=== PATIENT | male | born 1935 | race Caucasian/White ===

== ENCOUNTER → 2016-07-26 | Outpatient (CLI) | payer MEDICARE, BC ==
[2016-07-26 09:19] LABS: Basophils # (A) 0.1 k/uL (0-0.2); Basophils % (A) 1 %; CH 30.3; CHCM 33.8; Eosinophils # (A) 0.3 k/uL (0-0.7); Eosinophils % (A) 3 %; HCT 53.2 % (39.0-53.0); HDW 2.76; HGB 17.7 gm/dL (13.0-17.5); Luc # (Auto) 0.27; Luc % (Auto) 3; Lymphocytes # (A) 1.7 k/uL (1.0-4.8); Lymphocytes % (A) 19 %; MCH 29.9 pg (25.0-35.0); MCHC 33.2 g/dL (31.0-37.0); MCV 89.9 fL (80.0-100.0); Monocytes # (A) 0.6 k/uL (0-1.0); Monocytes % (A) 7 %; Neutrophils # (A) 6.3 k/uL (1.3-7.7); Neutrophils % (A) 68 %; RBC 5.92 m/uL (4.30-5.90); RDW 13.2 % (11.5-15.5); WBC 9.2 k/uL (3.8-10.6); WBC (Perox) 9.39
[2016-07-26 09:34] LABS: INR 2.1 (<1.1); Prothrombin Time 20.6 sec (9.0-12.0)
[2016-07-26 11:06] LABS: Hemoglobin A1C 5.4 % (4.2-6.1)
[2016-07-26 12:25] LABS: ALT 35 U/L (21-72); AST 34 U/L (17-59); Alkaline Phosphatase 115 U/L (38-126); Anion Gap 9 mmol/L; Blood Urea Nitrogen 25 mg/dL (9-20); Carbon Dioxide 33 mmol/L (22-30); Chloride 103 mmol/L (98-107); Cholesterol 175 mg/dL (<200); Glucose 111 mg/dL (74-99); HDL Cholesterol 34 mg/dL (40-60); Non-African American GFR(MDRD) 58 (>60 ml/min/1.73 sqM); Sodium 145 mmol/L (137-145); Total Bilirubin 0.6 mg/dL (0.2-1.3); Total Protein 7.2 g/dL (6.3-8.2); Triglycerides 164 mg/dL (<150); Uric Acid 6.6 mg/dL (3.5-8.5)
[2016-07-26 13:27] LABS: Vitamin B12 318 pg/mL
[2016-07-26 13:40] LABS: Potassium 5.7 mmol/L (3.5-5.1)
== END | disposition home or self-care (01) ==
LOC: LABWHC1 08:26
PROVIDERS: ATTEND Family Medicine
DX: E78.5 Hyperlipidemia, unspecified (principal); K14.8 Other diseases of tongue; I10 Essential (primary) hypertension; I48.91 Unspecified atrial fibrillation
CPT/HCPCS: 36415; 80053; 80061; 82607; 82746; 83036; 84443; 84550; 85025; 85610

== ENCOUNTER → 2016-08-01 | Outpatient (CLI) | payer MEDICARE, BC ==
--- NOTE | 2016-08-01 08:23 | CT ---
EXAMINATION TYPE: CT brain wo con DATE OF EXAM: 08/01/2016 8:17 AM COMPARISON: NONE HISTORY: Numbness of tongue CT DLP: 978.[address] of the brain was performed. The ventricles, basal cisterns and sulci overlying the cerebral convexities demonstrate mild enlargem ent. There is no evidence for intracranial hemorrhage or sulcal effacement. There is decreased attenuation about the periventricular white matter and deep white matter of both c erebral hemispheres, compatible with chronic small vessel ischemia. Differential diagnosis does inclu de demyelination. No mass effects are seen.No midline shift. Osseous calvarium is intact. If symptoms persist consider MRI. IMPRESSION: 1. Age related atrophic and chronic small vessel ischemic change without acute intracranial process s een at this time.
== END | disposition home or self-care (01) ==
LOC: RADCTMAIN 07:59
PROVIDERS: ATTEND Family Medicine
DX: I67.82 Cerebral ischemia (principal); G31.9 Degenerative disease of nervous system, unspecified; K14.8 Other diseases of tongue
CPT/HCPCS: 70450

== ENCOUNTER → 2016-08-08 | Outpatient (CLI) | payer MEDICARE, BC ==
[2016-08-08 10:30] LABS: Anion Gap 11 mmol/L; Blood Urea Nitrogen 18 mg/dL (9-20); Calcium 9.7 mg/dL (8.4-10.2); Carbon Dioxide 30 mmol/L (22-30); Chloride 100 mmol/L (98-107); Glucose 114 mg/dL (74-99); Non-African American GFR(MDRD) 55 (>60 ml/min/1.73 sqM); Potassium 5.4 mmol/L (3.5-5.1); Sodium 141 mmol/L (137-145)
== END | disposition home or self-care (01) ==
LOC: LABWHC1 09:31
PROVIDERS: ATTEND Nurse Practitioner Family
DX: E87.5 Hyperkalemia (principal)
CPT/HCPCS: 36415; 80048

== ENCOUNTER → 2016-08-13 | Outpatient (CLI) | payer MEDICARE, BC ==
[2016-08-13 13:14] LABS: Anion Gap 12 mmol/L; Blood Urea Nitrogen 28 mg/dL (9-20); Carbon Dioxide 32 mmol/L (22-30); Chloride 99 mmol/L (98-107); Non-African American GFR(MDRD) 57 (>60 ml/min/1.73 sqM); Potassium 5.8 mmol/L (3.5-5.1); Sodium 143 mmol/L (137-145)
== END | disposition home or self-care (01) ==
LOC: LABWHC1 11:38
PROVIDERS: ATTEND Otolaryngology
DX: R20.0 Anesthesia of skin (principal); H92.02 Otalgia, left ear; R13.10 Dysphagia, unspecified; R07.0 Pain in throat; R68.89 Other general symptoms and signs
CPT/HCPCS: 36415; 80051; 82565; 84520; 86618

== ENCOUNTER → 2016-08-19 | Outpatient (CLI) | payer MEDICARE, BC | END | disposition home or self-care (01) | LOC: LABMAIN 16:38 | PROVIDERS: ATTEND Nurse Practitioner Family | DX: Z53.9 Procedure and treatment not carried out, unspecified reason (principal) ==

== ENCOUNTER → 2016-08-19 | Outpatient (CLI) | payer MEDICARE, BC ==
[2016-08-19 17:38] LABS: Ionized Calcium 4.3 mg/dL (4.5-5.3)
[2016-08-19 18:36] LABS: Vitamin B12 <159 pg/mL
[2016-08-19 18:39] LABS: Blood Urea Nitrogen 30 mg/dL (9-20); Non-African American GFR(MDRD) >60 (>60 ml/min/1.73 sqM)
--- NOTE | 2016-08-19 19:22 | CT ---
EXAMINATION TYPE: CT soft tissue neck w con DATE OF EXAM: 08/19/2016 7:13 PM COMPARISON: NONE HISTORY: Pt states of left side of tongue going numb and left side ear ache. CT DLP: 1328.5 mGycm Automated exposure control for dose reduction was used. CONTRAST: CT scan of the neck is performed following with IV Contrast, patient injected with 100 mL of Omnipaqu e 300. Axial images are obtained, coronal and sagittal reformatted images are reviewed. FINDINGS: Thoracic aorta is atheromatous. There is normal branching pattern of the great vessels on the aortic arch. Thyroid gland is symmetric. Subglottic trachea appears normal. Epiglottis is normal. There is n o evidence of a pharyngeal mass. There is normal contrast opacification of the carotid arteries and j ugular veins. There is mild atherosclerotic vascular calcification. There are spondylotic changes in the cervical spine with disc space narrowing and extensive anterior spurring at C5-6 C6-7 C7-T1. Ther e is mild mucosal thickening in the sphenoid sinus. The skull base is intact. There is mucosal thicke yolanda in the maxillary sinuses. There is normal contrast opacification of the vertebral arteries. IMPRESSION: Atherosclerotic vascular disease. Moderate spondylosis in the lower cervical spine. I do not see a cause for the patient's symptoms. Sphenoid and maxillary sinusitis.
--- NOTE | 2016-08-19 19:24 | CT ---
EXAMINATION TYPE: CT brain w con DATE OF EXAM: 08/19/2016 7:13 PM COMPARISON: 08/01/2016 HISTORY: Pt states of left side of tongue going numb and left side ear ache. CT DLP: 1328.5 mGycm Automated exposure control for dose reduction was used. CONTRAST: CT scan of the head is performed with IV Contrast, patient injected with 100 mL of Omnipaque 300. FINDINGS: Ventricles and sulci are normal for age. There is no mass effect nor midline shift. There is no sign of intracranial hemorrhage. There is mild mucosal thickening in the ethmoid sphenoid and maxillary si nuses. Calvarium is intact. I see no pathologic enhancement. IMPRESSION: Mild sinusitis. Otherwise negative unenhanced head CT scan. Brain is unchanged compared to old exam.
== END | disposition home or self-care (01) ==
LOC: RADCTMAIN 16:25
PROVIDERS: ATTEND Otolaryngology
DX: J32.9 Chronic sinusitis, unspecified (principal); M47.812 Spondylosis without myelopathy or radiculopathy, cervical region
CPT/HCPCS: 80048; 82330; 82607; 70491; 70460; 36415; Q9967

== ENCOUNTER → 2016-08-23 | Outpatient (CLI) | payer MEDICARE, BC ==
[2016-08-23 10:39] LABS: Anion Gap 11 mmol/L; Blood Urea Nitrogen 26 mg/dL (9-20); Calcium 9.9 mg/dL (8.4-10.2); Carbon Dioxide 31 mmol/L (22-30); Chloride 101 mmol/L (98-107); Glucose 113 mg/dL (74-99); Non-African American GFR(MDRD) 55 (>60 ml/min/1.73 sqM); Potassium 5.2 mmol/L (3.5-5.1); Sodium 143 mmol/L (137-145)
== END | disposition home or self-care (01) ==
LOC: LABWHC1 09:59
PROVIDERS: ATTEND Nurse Practitioner Family
DX: E87.6 Hypokalemia (principal)
CPT/HCPCS: 36415; 80048

== ENCOUNTER → 2016-09-16 | Outpatient (CLI) | payer MEDICARE, BC ==
[2016-09-16 10:15] LABS: Basophils # (A) 0.1 k/uL (0-0.2); Basophils % (A) 1 %; CHCM 33.1; Eosinophils # (A) 0.3 k/uL (0-0.7); Eosinophils % (A) 3 %; HCT 52.7 % (39.0-53.0); HDW 2.69; HGB 16.9 gm/dL (13.0-17.5); Luc # (Auto) 0.26; Luc % (Auto) 3; Lymphocytes # (A) 1.7 k/uL (1.0-4.8); Lymphocytes % (A) 21 %; MCH 29.2 pg (25.0-35.0); MCHC 32.1 g/dL (31.0-37.0); MCV 90.9 fL (80.0-100.0); Mean Platelet Volume 6.9; Monocytes # (A) 0.4 k/uL (0-1.0); Monocytes % (A) 6 %; Neutrophils # (A) 5.1 k/uL (1.3-7.7); Neutrophils % (A) 66 %; RDW 13.2 % (11.5-15.5); WBC 7.8 k/uL (3.8-10.6); WBC (Perox) 8.08
[2016-09-16 10:17] LABS: Appearance,Urine Clear (Clear); Bilirubin,Urine Negative (Negative); Glucose,Urine (UA) Negative (Negative); Ketones,Urine Negative (Negative); Leukocyte Esterase,Urine Negative (Negative); Nitrite,Urine Negative (Negative); Particle Count 616; Protein,Urine Negative (Negative); RBC,Urine 7 /hpf (0-5); UA Billing (MACRO vs. MICRO) MICRO; Urobilinogen,Urine <2.0 mg/dL (<2.0); WBC,Urine <1 /hpf (0-5)
[2016-09-16 11:02] LABS: ALT 40 U/L (21-72); AST 35 U/L (17-59); Alkaline Phosphatase 118 U/L (38-126); Anion Gap 10 mmol/L; Blood Urea Nitrogen 20 mg/dL (9-20); Calcium 9.4 mg/dL (8.4-10.2); Carbon Dioxide 29 mmol/L (22-30); Chloride 103 mmol/L (98-107); Glucose 99 mg/dL (74-99); Iron 110 ug/dL (49-181); Magnesium 1.9 mg/dL (1.6-2.3); Non-African American GFR(MDRD) 58 (>60 ml/min/1.73 sqM); Phosphorous 2.9 mg/dL (2.5-4.5); Potassium 4.9 mmol/L (3.5-5.1); Sodium 142 mmol/L (137-145); Total Bilirubin 0.7 mg/dL (0.2-1.3); Total Protein 7.1 g/dL (6.3-8.2); Uric Acid 6.3 mg/dL (3.5-8.5)
[2016-09-16 11:12] LABS: Creatinine,Urine Random 94.5 mg/dL
[2016-09-16 11:13] LABS: % Iron Saturation 31.4 % (20-50); Total Iron Binding Capacity 350 ug/dL (261-462)
== END ==
LOC: LABWHC1 09:43
PROVIDERS: ATTEND Nurse Practitioner Family
DX: N18.3 Chronic kidney disease, stage 3 (moderate) (principal); N39.0 Urinary tract infection, site not specified; M10.9 Gout, unspecified; D50.9 Iron deficiency anemia, unspecified; E55.9 Vitamin D deficiency, unspecified
CPT/HCPCS: 36415; 80053; 81001; 82306; 82570; 82728; 83540; 83550; 83735; 83970; 84100; 84156; 84550; 85025

== ENCOUNTER → 2016-10-11 | Outpatient (CLI) | payer MEDICARE, BC ==
--- NOTE | 2016-10-11 09:07 | US ---
EXAMINATION TYPE: US kidneys/renal and bladder DATE OF EXAM: 10/11/2016 8:38 AM COMPARISON: 11/30/2014 CLINICAL HISTORY: CKD Stage III N18.3. Chronic renal disease EXAM MEASUREMENTS: Right Kidney: 10.4 x 5.3 x 6.0 cm Left Kidney: 9.8 x 5.6 x 5.8 cm Right Kidney: echogenic foci with shadowing seen in lower pole, indicative of stones Left Kidney: dromedary hump Bladder: Anechoic with normal wall thickness Normal Post Void Residual: right No hydronephrosis.. complex cystic structure superior to bladder measuring 5.1 x 4.2 cm. Persistent after bladder is voi ded. Patient has stated that doctor said he has hernia bilaterally. IMPRESSION: 1. Findings are suggestive of nonobstructing right renal stones. 2. Complex cystic mass superior to the bladder. This may correspond to the previous CT abnormality 20 15 represent a balloon for cleanout implant. Correlate clinically.
== END | disposition home or self-care (01) ==
LOC: RADUSWWP 07:51
PROVIDERS: ATTEND Internal Medicine Nephrology
DX: N32.89 Other specified disorders of bladder (principal); N18.3 Chronic kidney disease, stage 3 (moderate)
CPT/HCPCS: 76770

== ENCOUNTER → 2016-10-30 | Outpatient (CLI) | payer MEDICARE, BC ==
[2016-10-30 11:17] LABS: Basophils # (A) 0.1 k/uL (0-0.2); Basophils % (A) 1 %; CH 30.6; Eosinophils # (A) 0.1 k/uL (0-0.7); Eosinophils % (A) 1 %; HCT 49.4 % (39.0-53.0); HDW 2.61; HGB 16.4 gm/dL (13.0-17.5); Luc # (Auto) 0.22; Luc % (Auto) 3; Lymphocytes % (A) 12 %; MCH 29.9 pg (25.0-35.0); MCHC 33.2 g/dL (31.0-37.0); MCV 90.2 fL (80.0-100.0); Mean Platelet Volume 6.8; Monocytes # (A) 0.6 k/uL (0-1.0); Monocytes % (A) 8 %; Neutrophils # (A) 6.3 k/uL (1.3-7.7); Neutrophils % (A) 77 %; RBC 5.48 m/uL (4.30-5.90); RDW 13.8 % (11.5-15.5); WBC 8.2 k/uL (3.8-10.6); WBC (Perox) 8.35
[2016-10-30 14:03] LABS: ALT 31 U/L (21-72); AST 29 U/L (17-59); Alkaline Phosphatase 84 U/L (38-126); Anion Gap 9 mmol/L; Blood Urea Nitrogen 25 mg/dL (9-20); Calcium 9.1 mg/dL (8.4-10.2); Carbon Dioxide 30 mmol/L (22-30); Chloride 99 mmol/L (98-107); Glucose 98 mg/dL (74-99); Non-African American GFR(MDRD) 53 (>60 ml/min/1.73 sqM); Potassium 4.8 mmol/L (3.5-5.1); Sodium 138 mmol/L (137-145); Total Bilirubin 0.8 mg/dL (0.2-1.3); Total Protein 6.7 g/dL (6.3-8.2)
[2016-10-30 14:57] LABS: Vitamin B12 600 pg/mL
== END | disposition home or self-care (01) ==
LOC: LABWHC1 10:55
PROVIDERS: ATTEND Family Medicine
DX: K14.8 Other diseases of tongue (principal)
CPT/HCPCS: 36415; 80053; 82306; 82607; 82746; 84443; 85025

== ENCOUNTER → 2017-02-27 | Outpatient (CLI) | payer MEDICARE, BC ==
[2017-02-27 10:47] LABS: Creatine Kinase 102 U/L (55-170)
[2017-02-27 10:50] LABS: Rheumatoid Factor, Qnt <9 IU/mL (<12)
[2017-02-27 11:21] LABS: Vitamin B12 560 pg/mL
[2017-02-27 12:21] LABS: Hemoglobin A1C 5.8 % (4.2-6.1)
[2017-02-27 16:58] LABS: Treponemal Ab Non-Reactive (Non-Reactive)
[2017-02-27 20:01] LABS: ANA w/Reflex to Titer POSITIVE (NEGATIVE)
[2017-02-28 11:23] LABS: Lyme IgG/IgM Interp NEGATIVE (NEGATIVE)
== END | disposition home or self-care (01) ==
LOC: LABWHC1 08:33
PROVIDERS: ATTEND Psychiatry & Neurology Neurology
DX: E03.9 Hypothyroidism, unspecified (principal); E11.9 Type 2 diabetes mellitus without complications; G62.9 Polyneuropathy, unspecified
CPT/HCPCS: 36415; 82550; 82607; 83036; 84165; 84439; 84443; 85652; 86038; 86039; 86431; 86618; 86780

== ENCOUNTER → 2017-09-16 | Outpatient (CLI) | payer MEDICARE, BC ==
[2017-09-16 11:04] LABS: Basophils # (A) 0.1 k/uL (0-0.2); Basophils % (A) 1 %; Eosinophils # (A) 0.3 k/uL (0-0.7); Eosinophils % (A) 3 %; HCT 48.2 % (39.0-53.0); HGB 16.2 gm/dL (13.0-17.5); Lymphocytes # (A) 1.6 k/uL (1.0-4.8); Lymphocytes % (A) 18 %; MCH 28.5 pg (25.0-35.0); MCHC 33.5 g/dL (31.0-37.0); Mean Platelet Volume 7.1; Monocytes # (A) 0.6 k/uL (0-1.0); Monocytes % (A) 7 %; Neutrophils # (A) 5.7 k/uL (1.3-7.7); Neutrophils % (A) 68 %; Platelet Count 167 k/uL (150-450); RBC 5.67 m/uL (4.30-5.90); RDW 13.9 % (11.5-15.5); WBC 8.5 k/uL (3.8-10.6)
[2017-09-16 11:19] LABS: Albumin 4.2 g/dL (3.5-5.0); Appearance,Urine Clear (Clear); Bilirubin,Urine Negative (Negative); Blood,Urine Trace (Negative); Calcium 9.6 mg/dL (8.4-10.2); Color,Urine Yellow; Glucose,Urine (UA) Negative (Negative); Ketones,Urine Negative (Negative); Leukocyte Esterase,Urine Negative (Negative); Mucus,Urine Rare /hpf; Phosphorus 2.8 mg/dL (2.5-4.5); Potassium 4.8 mmol/L (3.5-5.1); Protein,Urine Negative (Negative); RBC,Urine 2 /hpf (0-5); Specific Gravity,Urine 1.013 (1.001-1.035); Total Bilirubin 0.5 mg/dL (0.2-1.3); Total Protein 7.1 g/dL (6.3-8.2); Uric Acid 7.2 mg/dL (3.5-8.5); Urobilinogen,Urine <2.0 mg/dL (<2.0); WBC,Urine <1 /hpf (0-5)
[2017-09-16 11:41] LABS: Creatinine,Urine Random 135.9 mg/dL
[2017-09-16 17:04] LABS: Iron Saturation 10.66 (15.00-50.00)
== END | disposition home or self-care (01) ==
LOC: LABWHC1 10:30
PROVIDERS: ATTEND Nurse Practitioner Family
DX: N18.3 Chronic kidney disease, stage 3 (moderate) (principal); M10.9 Gout, unspecified; E55.9 Vitamin D deficiency, unspecified; R80.9 Proteinuria, unspecified
CPT/HCPCS: 36415; 80053; 81001; 82306; 82570; 82728; 83540; 83550; 83735; 83970; 84100; 84156; 84550; 85025

== ENCOUNTER 2018-10-17 08:09 | Observation (INO) | payer MEDICARE, BC ==
[2018-10-17] MEDS ORDERED: ASPIRIN 81 MG PO STA (08:27)
--- NOTE | 2018-10-17 08:36 | ED ---
Chest Pain HPI - General Chief Complaint: Chest Pain Stated Complaint: Chest pain Time Seen by Provider: 10/17/18 08:14 Source: patient, RN notes reviewed Mode of arrival: wheelchair Limitations: no limitations - History of Present Illness Initial Comments: This an 83-year-old male presents emergency Department with chief complaint of chest pain. Patient states symptoms started an hour or so prior to arrival. Patient states he was fishing states he developed some left-sided chest pain states that he took one nitro states the pain immediately alleviated states that he became very diaphoretic. Patient does have a cardiac history including CABG 23 years ago. Patient states he had a stress test a few months ago which was normal. He states this was exercise-induced rest stress test. Patient has been told that he most likely will need a pacemaker. Patient has had a prior ablation. Patient does have a history of hypertension hyperlipidemia. Denies being diabetic. Patient denies any shortness breath, nausea, vomiting, diarrhea constipation. - Related Data Home Medications Medication Instructions Recorded Confirmed Nitroglycerin Sl Tabs [Nitrostat] 0.4 mg SUBLINGUAL Q5M PRN 04/08/14 10/17/18 Omeprazole [PriLOSEC] 20 mg PO HS 04/08/14 10/17/18 Warfarin [Coumadin] 5 mg PO W/SUPPER 04/08/14 10/17/18 Cyanocobalamin (Vitamin B-12) 1,000 mcg PO HS 10/17/18 10/17/18 [Vitamin B-12] amLODIPine [Norvasc] 10 mg PO HS 10/17/18 10/17/18 Allergies Allergy/AdvReac Type Severity Reaction Status Date / Time No Known Allergies Allergy Verified 10/17/18 08:38 Review of Systems ROS Statement: Those systems with pertinent positive or pertinent negative responses have been documented in the HPI. ROS Other: All systems not noted in ROS Statement are negative. EKG Findings - EKG Comments: EKG Findings:: EKG performed at 8:20 minutes rhythm with first-degree block, left axis deviation rate of 69 SD 228 QRS 110 QT/QTC 390/417 Past Medical History Past Medical History: Atrial Flutter, Coronary Artery Disease (CAD), Hyperlipidemia, Hypertension, Myocardial Infarction ([place]) Additional Past Medical History / Comment(s): prostate cancer History of Any Multi-Drug Resistant Organisms: None Reported Past Surgical History: Coronary Bypass/CABG, Hernia Repair, Prostate Surgery Additional Past Surgical History / Comment(s): penile implant Past Psychological History: No Psychological Hx Reported Smoking Status: Never smoker Past Alcohol Use History: Rare Past Drug Use History: None Reported General Exam Limitations: no limitations General appearance: alert, in no apparent distress Head exam: Present: atraumatic, normocephalic, normal inspection Eye exam: Present: normal appearance, PERRL, EOMI. Absent: scleral icterus, conjunctival injection, periorbital swelling Neck exam: Present: normal inspection. Absent: tenderness, meningismus, lymphadenopathy Respiratory exam: Present: normal lung sounds bilaterally. Absent: respiratory distress, wheezes, rales, rhonchi, stridor Cardiovascular Exam: Present: regular rate, normal rhythm, normal heart sounds. Absent: systolic murmur, diastolic murmur, rubs, gallop, clicks GI/Abdominal exam: Present: soft, normal bowel sounds. Absent: distended, tenderness, guarding, rebound, rigid Course Vital Signs 10/17/18 10/17/18 10/17/18 08:11 08:30 09:00 Temperature 97.6 F Pulse Rate 70 64 64 Respiratory 18 18 18 Rate Blood Pressure 174/81 163/81 153/78 O2 Sat by Pulse 96 97 98 Oximetry Chest Pain MDM - MDM 9-year-old male presented from for chest pain. Alleviated with nitro. Initial troponin is negative. EKG shows no acute changes. Patient will be admitted for repeat cardiac enzymes, cardiology evaluation. Disposition Clinical Impression: Chest pain Disposition: ADMITTED IP TO THIS HOSP Condition: Fair Referrals: Nonstaff,Physician [REFERRING] - 1-2 days
[2018-10-17 08:48] LABS: Anisocytosis Slight; Basophils # (A) 0.1 k/uL (0-0.2); Basophils % (A) 1 %; Eosinophils # (A) 0.2 k/uL (0-0.7); Eosinophils % (A) 2 %; HCT 47.4 % (39.0-53.0); Lymphocytes # (A) 1.6 k/uL (1.0-4.8); Lymphocytes % (A) 14 %; MCH 27.1 pg (25.0-35.0); MCHC 33.6 g/dL (31.0-37.0); MCV 80.5 fL (80.0-100.0); Mean Platelet Volume 9.5; Monocytes # (A) 0.8 k/uL (0-1.0); Monocytes % (A) 7 %; Neutrophils % (A) 74 %; Platelet Count 212 k/uL (150-450); RBC 5.89 m/uL (4.30-5.90); RDW 16.1 % (11.5-15.5); WBC 10.8 k/uL (3.8-10.6)
--- NOTE | 2018-10-17 08:54 | XR ---
EXAMINATION TYPE: XR chest 2V DATE OF EXAM: 10/17/2018 HISTORY: Chest Pain. REFERENCE: Previous study dated 12/02/2012. FINDINGS: There has been a midline sternotomy. There are mild senescent changes within the lungs. There is no evidence of pneumonia or edema. Heart size is upper limits of normal. Pleural spaces are clear. IMPRESSION: NO ACTIVE CARDIOPULMONARY ABNORMALITY.
[2018-10-17 09:02] LABS: Albumin 4.5 g/dL (3.5-5.0); INR 2.6 (<1.2); Magnesium 1.8 mg/dL (1.6-2.3); Partial Thromboplastin Time 34.4 sec (22.0-30.0); Potassium 4.6 mmol/L (3.5-5.1); Prothrombin Time 24.9 sec (9.0-12.0); Total Bilirubin 0.6 mg/dL (0.2-1.3); Total Protein 7.4 g/dL (6.3-8.2)
[2018-10-17] MEDS ORDERED: NITROGLYCERIN SL TABS 0.4 MG TAB SUBLINGUAL PRN ×2 (09:57→09:58)
--- NOTE | 2018-10-17 13:39 | P.HPIM ---
History of Present Illness H&P Date: 10/17/18 Chief Complaint: Chest pain John Silva is an 83-year-old male who presented to [facility] emergency room with a chief complaint of chest pain. Patient stated that early this morning about 5:30 AM he went out fishing he started setting up his fishing poles when he started having left sided chest pain he took sublingual nitroglycerin and his chest pain improved then he started having some diaphoresis he went back home and had his drive him to emergency room he was evaluated in the emergency room first EKG and first set of cardiac enzymes were negative he has a known history of coronary artery disease with coronary artery bypass graft surgery 20 years ago he will be admitted to observation unit cardiology consultation was requested. Past Medical History Past Medical History: Atrial Flutter, Coronary Artery Disease (CAD), Hyperlipidemia, Hypertension, Myocardial Infarction ([place]) Additional Past Medical History / Comment(s): prostate cancer History of Any Multi-Drug Resistant Organisms: None Reported Past Surgical History: Coronary Bypass/CABG, Hernia Repair, Prostate Surgery Additional Past Surgical History / Comment(s): penile implant Past Psychological History: No Psychological Hx Reported Smoking Status: Never smoker Past Alcohol Use History: Rare Past Drug Use History: None Reported Medications and Allergies Home Medications Medication Instructions Recorded Confirmed Type Nitroglycerin Sl Tabs [Nitrostat] 0.4 mg SUBLINGUAL Q5M PRN 04/08/14 10/17/18 History Omeprazole [PriLOSEC] 20 mg PO HS 04/08/14 10/17/18 History Warfarin [Coumadin] 5 mg PO W/SUPPER 04/08/14 10/17/18 History Cyanocobalamin (Vitamin B-12) 1,000 mcg PO HS 10/17/18 10/17/18 History [Vitamin B-12] amLODIPine [Norvasc] 10 mg PO HS 10/17/18 10/17/18 History Allergies Allergy/AdvReac Type Severity Reaction Status Date / Time No Known Allergies Allergy Verified 10/17/18 08:38 Physical Exam Vitals: Vital Signs Temp Pulse Resp BP Pulse Ox 10/17/18 12:30 61 18 152/72 97 10/17/18 12:00 59 L 18 166/78 97 10/17/18 11:30 61 18 157/75 97 10/17/18 11:00 60 18 149/74 97 10/17/18 10:30 61 18 148/72 97 10/17/18 10:00 60 16 145/72 97 10/17/18 09:30 61 18 132/69 97 10/17/18 09:00 64 18 153/78 98 10/17/18 08:30 64 18 163/81 97 10/17/18 08:11 97.6 F 70 18 174/81 96 Intake and Output 10/16/18 10/17/18 10/17/18 22:59 06:59 14:59 Other: Weight 83.915 kg In general patient is alert and oriented 3 in no apparent distress HEENT head normocephalic and atraumatic Neck is supple no JVD no goiter no lymphadenopathy Chest exam is clear to auscultation no crackles no wheezing Cardiac exam reveals regular heart sounds S1 and S2 no gallops no murmurs Abdomen is soft nontender no organomegaly with normal bowel sounds Extremity exam reveals no edema no cyanosis or clubbing Results CBC & Chem 7: 10/17/18 08:22 10/17/18 08:22 Labs: Abnormal Lab Results - Last 24 Hours (Table) 10/17/18 10/17/18 10/17/18 Range/Units 08:22 08:22 08:22 WBC 10.8 H (3.8-10.6) k/uL RDW 16.1 H (11.5-15.5) % Neutrophils # 8.0 H (1.3-7.7) k/uL PT 24.9 H (9.0-12.0) sec INR 2.6 H (<1.2) APTT 34.4 H (22.0-30.0) sec Sodium 136 L (137-145) mmol/L BUN 30 H (9-20) mg/dL Creatinine 1.44 H (0.66-1.25) mg/dL Glucose 130 H (74-99) mg/dL Assessment and Plan Plan: #1 episode of chest pain #2 underlying history of coronary artery disease #3 underlying history of atrial fibrillation/flutter maintained on Coumadin #4 underlying history of hypertension #5 underlying history of hyperlipidemia #6 history of peripheral neuropathy severe per patient without history of diabetes #7 previous history of BPH with prostate surgery in the past At this time patient will be admitted to 24-hour observation serial EKGs and cardiac enzymes are ordered Cardiology consultation requested Patient follows with Dr. Ayaal, he states that he had a stress test a few months ago and was reported to him as normal.
[2018-10-17] MEDS ORDERED: WARFARIN 5 MG TAB PO SCH (18:00)
[2018-10-17] MEDS: amLODIPine 10 MG TAB PO SCH (22:44)
[2018-10-17] MEDS: ATORVASTATIN 40 MG TAB PO SCH (22:45)
[2018-10-17] MEDS: PANTOPRAZOLE 40 MG TABLET PO SCH (22:45)
[2018-10-17] MEDS: CYANOCOBALAMIN 500 MCG TAB PO SCH (22:45)
[2018-10-18 01:55] LABS: Cholesterol 179 mg/dL (<200); HDL Cholesterol 30 mg/dL (40-60); LDL Cholesterol,Calculated 118 mg/dL (0-99); Triglycerides 156 mg/dL (<150)
[2018-10-18 08:54] VITALS: BMI 27.3
[2018-10-18 08:58] LABS: INR 2.7 (<1.2); Prothrombin Time 26.1 sec (9.0-12.0)
[2018-10-18] MEDS: ATORVASTATIN 40 MG TAB PO SCH (09:01)
[2018-10-18] MEDS: ASPIRIN 81 MG PO SCH (09:01)
--- NOTE | 2018-10-18 09:45 | P.CRDCN ---
History of Present Illness Consult date: 10/18/18 Requesting physician: Nikia Taylor Consult reason: chest pain History of present illness: Patient is an 83-year-old who follows with Dr. Ugarte in the office, who presents to the hospital with acute onset of chest discomfort while fishing early yesterday morning. He states he was setting up his fishing gear, when he developed a sharp discomfort in his left pectoral region. It was sharp and nonradiating. He took his one sublingual nitroglycerin and states the pain resolved within 1 minute, however he did develop diaphoresis after taking the nitroglycerin. He denies any dizziness or lightheadedness prior to and after the nitroglycerin. EKG shows sinus rhythm with first-degree AV block. Troponins negative 3. On exam he has resting comfortably in bed. He has not had any symptoms since his initial presentation. Rate is regular. Lungs are clear. He does have a soft systolic murmur. No lower extremity edema. PAST MEDICAL HISTORY: CAD status post CABG, atrial flutter, hyperlipidemia, hypertension REVIEW OF SYSTEMS: No fever or chills. No cough or expectoration. No diaphoresis. Patient denies headache, dizziness, blurred vision, double vision. Patient denies any stomach discomfort. No nausea, vomiting. No hematochezia. No hematemesis. Denies any black stools or blood in his stools. Denies dysuria or hematuria. No muscle weakness or numbness. PHYSICAL EXAMINATION: This is a 83-year-old male in no apparent distress at the time of my examination. HEENT: Head is atraumatic, normocephalic. Pupils are equal, round. Sclerae anicteric. Conjunctivae are clear. Mucous membranes of the mouth are moist. Neck is supple. There is no jugular venous distention. No carotid bruit is heard. CHEST EXAMINATION: Lungs are clear to auscultation. No chest wall tenderness is noted on palpation or with deep breathing. HEART EXAMINATION: Heart regular rate and rhythm. S1, S2 heard. Soft systolic. No gallops or rub. ABDOMEN: Soft, nontender. Bowel sounds are heard. No organomegaly noted. EXTREMITIES: 2+ peripheral pulses with no evidence of peripheral edema and no calf tenderness noted. NEUROLOGIC EXAMINATION: Patient is awake, alert and oriented x3. LABORATORY DATA: WBC 10.8, hemoglobin 16.0 sodium 136, potassium 4.6, magnesium 1.8, BUN 30, creatinine 1.44, INR 2.6, troponins less than 0.0123, triglycerides 156, LDL 118, HDL 30. FINAL ASSESSMENT AND PLAN: Chest discomfort, new onset, resolved nitroglycerin CAD status post CABG Paroxysmal atrial fibrillation/atrial flutter, Coumadin therapeutic Hypertension, uncontrolled Hyperlipidemia, LDL 118 PLAN: We will resume home medications. Start patient on atorvastatin 40 mg, as he is unsure of his home dosage. Nothing by mouth after 7 AM tomorrow for coronary angiography. Further recommendations to follow. Past Medical History Past Medical History: Atrial Flutter, Coronary Artery Disease (CAD), Cancer, Chest Pain / Angina, GERD/Reflux, Hearing Disorder / Deafness, Hyperlipidemia, Hypertension, Myocardial Infarction ([place]), Prostate Disorder, Sleep Apnea/CP AP/BIPAP Additional Past Medical History / Comment(s): prostate cancer, bilateral legs are beginning to get numb from knees down and right hand as well, stated does not use CPAP because he doesn't like it Last Myocardial Infarction Date:: 1994 History of Any Multi-Drug Resistant Organisms: None Reported Past Surgical History: Coronary Bypass/CABG, Hernia Repair, Prostate Surgery Additional Past Surgical History / Comment(s): penile implant, two leads left in heart following CABG Past Anesthesia/Blood Transfusion Reactions: No Reported Reaction Past Psychological History: No Psychological Hx Reported Smoking Status: Former smoker Past Alcohol Use History: None Reported, Rare Past Drug Use History: None Reported - Past Family History Father Family Medical History: Cancer Medications and Allergies Home Medications Medication Instructions Recorded Confirmed Type Nitroglycerin Sl Tabs [Nitrostat] 0.4 mg SUBLINGUAL Q5M PRN 04/08/14 10/17/18 History Omeprazole [PriLOSEC] 20 mg PO HS 04/08/14 10/17/18 History Warfarin [Coumadin] 5 mg PO W/SUPPER 04/08/14 10/17/18 History Cyanocobalamin (Vitamin B-12) 500 mcg PO HS 10/17/18 10/18/18 History [Vitamin B-12] amLODIPine [Norvasc] 10 mg PO HS 10/17/18 10/17/18 History Loratadine [Claritin] 1 tab PO HS 10/18/18 10/18/18 History Allergies Allergy/AdvReac Type Severity Reaction Status Date / Time No Known Allergies Allergy Verified 10/17/18 08:38 Physical Exam Vitals: Vital Signs Temp Pulse Pulse Resp BP BP Pulse Ox 10/18/18 08:16 97.5 F L 71 18 178/87 93 L 10/18/18 08:06 97.8 F 67 18 137/72 97 10/18/18 06:00 62 13 156/97 96 10/18/18 05:15 98.0 F 75 14 156/97 95 10/18/18 05:00 66 12 129/71 98 10/18/18 04:00 63 14 155/79 98 10/18/18 03:00 64 12 144/71 97 10/18/18 02:34 59 L 18 151/75 95 10/17/18 22:46 66 16 164/76 97 10/17/18 21:00 67 9 L 165/80 94 L 10/17/18 20:11 66 16 165/75 97 10/17/18 15:00 61 16 143/81 95 10/17/18 14:30 18 136/70 97 10/17/18 14:00 64 16 142/64 96 10/17/18 13:30 64 16 148/70 10/17/18 13:00 62 15 157/81 10/17/18 12:30 61 18 152/72 97 10/17/18 12:00 59 L 18 166/78 97 10/17/18 11:30 61 18 157/75 97 10/17/18 11:00 60 18 149/74 97 10/17/18 10:30 61 18 148/72 97 10/17/18 10:00 60 16 145/72 97 Intake and Output 10/17/18 10/18/18 10/18/18 22:59 06:59 14:59 Other: Voiding Method Toilet Results 10/17/18 08:22 10/17/18 08:22 Cardiac Enzymes 10/17/18 10/17/18 Range/Units 14:22 20:39 Troponin I <0.012 <0.012 (0.000-0.034) ng/mL Coagulation 10/18/18 Range/Units 07:47 PT 26.1 H (9.0-12.0) sec Lipids 10/17/18 Range/Units 08:22 Triglycerides 156 H (<150) mg/dL Cholesterol 179 (<200) mg/dL HDL Cholesterol 30 L (40-60) mg/dL Current Medications Generic Name Dose Route Start Last Admin Trade Name Freq PRN Reason Stop Dose Admin Amlodipine Besylate 10 mg 10/17/18 21:00 10/17/18 22:44 Norvasc PO 10 mg HS JIGNA Administration Aspirin 81 mg 10/18/18 09:00 10/18/18 09:01 Aspirin PO 81 mg DAILY JIGNA Administration Atorvastatin Calcium 40 mg 10/17/18 20:15 10/18/18 09:01 Lipitor PO 40 mg DAILY JIGNA Administration Cyanocobalamin 1,000 mcg 10/17/18 21:00 10/17/18 22:45 Vitamin B-12 PO 1,000 mcg HS JIGNA Administration Nitroglycerin 0.4 mg 10/17/18 09:57 Nitrostat SUBLINGUAL Q5M PRN Chest Pain Pantoprazole Sodium 40 mg 10/17/18 21:00 10/17/18 22:45 Protonix PO 40 mg HS JIGNA Administration Intake and Output 10/17/18 10/18/18 10/18/18 22:59 06:59 14:59 Other: Voiding Method Toilet 10/17/18 08:22 10/17/18 08:22
[2018-10-18] MEDS ORDERED: BISACODYL 10 MG SUPP RECTAL PRN (14:24)
--- NOTE | 2018-10-18 17:30 | P.PN ---
Subjective Progress Note Date: 10/18/18 John Silva is an 83-year-old male who presented to [facility] emergency room with a chief complaint of chest pain. Patient stated that early this morning about 5:30 AM he went out fishing he started setting up his fishing poles when he started having left sided chest pain he took subl ingual nitroglycerin and his chest pain improved then he started having some diaphoresis he went back home and had his drive him to emergency room he was evaluated in the emergency room first EKG and first set of cardiac enzymes were negative he has a known history of coronary artery disease with coronary artery bypass graft surgery 20 years ago he will be admitted to observation unit cardiology consultation was requested. On 10/18/2018 patient was seen and examined on the observation unit he is alert and oriented 3 in no apparent distress, this time he denies any complaints there is no chest pain or shortness of breath no palpitation no fever or chills no headache or dizziness no nausea or vomiting no abdominal pain no diarrhea and no urinary symptoms Objective - Vital Signs Vital signs: Vital Signs Temp 98.1 F 10/18/18 16:00 Pulse 65 10/18/18 16:00 Resp 16 10/18/18 16:00 BP 148/68 10/18/18 16:00 Pulse Ox 93 L 10/18/18 16:00 Intake & Output 10/17/18 10/18/18 10/18/18 18:59 06:59 18:59 Weight 83.915 kg Other: Voiding Method Toilet - Exam In general patient is alert and oriented 3 in no apparent distress HEENT head normocephalic and atraumatic Neck is supple no JVD no goiter no lymphadenopathy Chest exam is clear to auscultation no crackles no wheezing Cardiac exam reveals regular heart sounds S1 and S2 no gallops no murmurs Abdomen is soft nontender no organomegaly with normal bowel sounds Extremity exam reveals no edema no cyanosis or clubbing - Labs CBC & Chem 7: 10/17/18 08:22 10/17/18 08:22 Labs: Abnormal Lab Results - Last 24 Hours (Table) 10/17/18 10/18/18 Range/Units 08:22 07:47 PT 26.1 H (9.0-12.0) sec INR 2.7 H (<1.2) Triglycerides 156 H (<150) mg/dL LDL Cholesterol, Calc 118 H (0-99) mg/dL HDL Cholesterol 30 L (40-60) mg/dL Assessment and Plan Plan: #1 episode of chest pain #2 underlying history of coronary artery disease #3 underlying history of atrial fibrillation/flutter maintained on Coumadin #4 underlying history of hypertension #5 underlying history of hyperlipidemia #6 history of peripheral neuropathy severe per patient without history of diabetes #7 previous history of BPH with prostate surgery in the past At this time patient will be admitted to 24-hour observation serial EKGs and cardiac enzymes are ordered Cardiology consultation requested At this time plan is to proceed with cardiac catheterization in a.m. Patient follows with Dr. Ayala, he states that he had a stress test a few months ago and was reported to him as normal.
[2018-10-18] MEDS: amLODIPine 10 MG TAB PO SCH (20:36)
[2018-10-18] MEDS: PANTOPRAZOLE 40 MG TABLET PO SCH (20:36)
[2018-10-18] MEDS: CYANOCOBALAMIN 500 MCG TAB PO SCH (20:36)
[2018-10-19] MEDS ORDERED: ALPRAZolam 0.5 MG TAB PO PRN (08:15)
[2018-10-19] MEDS ORDERED: ALPRAZolam 0.25 MG TAB PO PRN (08:15)
[2018-10-19] MEDS ORDERED: SODIUM CHLORIDE 0.9% 1,000 ML in EMPTY BAG 1 BAG IV ONE (08:15)
[2018-10-19 08:36] LABS: INR 1.9 (<1.2); Prothrombin Time 18.6 sec (9.0-12.0)
[2018-10-19] MEDS ORDERED: ASPIRIN 81 MG PO ONE (09:00)
[2018-10-19] MEDS: ATORVASTATIN 40 MG TAB PO SCH (09:00)
[2018-10-19] MEDS: ASPIRIN 81 MG PO SCH (09:00)
[2018-10-19] MEDS: SODIUM CHLORIDE 0.9% 1,000 ML IV SCH ×2 (09:07→20:27)
[2018-10-19] MEDS ORDERED: LIDOCAINE 1% INJ 10MG/ML (20 ML MDV) ONE (09:53)
[2018-10-19] MEDS ORDERED: MIDAZOLAM 2 MG/2 ML VIAL IVP ONE (10:28)
[2018-10-19 10:31] LABS: Basophils # (A) 0.1 k/uL (0-0.2); Basophils % (A) 1 %; Eosinophils # (A) 0.4 k/uL (0-0.7); Eosinophils % (A) 3 %; HCT 51.1 % (39.0-53.0); HGB 16.9 gm/dL (13.0-17.5); Lymphocytes # (A) 1.9 k/uL (1.0-4.8); Lymphocytes % (A) 17 %; MCH 27.7 pg (25.0-35.0); MCHC 33.2 g/dL (31.0-37.0); MCV 83.6 fL (80.0-100.0); Mean Platelet Volume 7.1; Monocytes # (A) 0.8 k/uL (0-1.0); Monocytes % (A) 7 %; Neutrophils % (A) 70 %; Platelet Count 203 k/uL (150-450); RBC 6.11 m/uL (4.30-5.90); RDW 14.1 % (11.5-15.5); WBC 11.3 k/uL (3.8-10.6)
[2018-10-19] MEDS ORDERED: LIDOCAINE 1% INJ 10MG/ML (20 ML MDV) SQ ONE (10:33)
[2018-10-19 10:37] LABS: Albumin 4.5 g/dL (3.5-5.0); Calcium 9.8 mg/dL (8.4-10.2); Potassium 4.9 mmol/L (3.5-5.1); Total Bilirubin 0.7 mg/dL (0.2-1.3); Total Protein 7.3 g/dL (6.3-8.2)
[2018-10-19] MEDS ORDERED: fentaNYL (PF) 50 MCG/ML 2 ML AMP ONE (10:37)
[2018-10-19] MEDS ORDERED: fentaNYL (PF) 50 MCG/ML 2 ML AMP IVP ONE (10:39)
--- NOTE | 2018-10-19 10:51 | P.PN ---
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 He follows with Dr. Ugarte in the office. He is seen and examined sitting up in the chair in no acute distress. He denies any ongoing symptoms of chest discomfort. Blood pressure 152/75 heart rate 69 afebrile. Laboratory data reviewed, WBC 11.3, hemoglobin 16.9, platelets 203, INR 1.9. Coumadin has been held since admission. Most recent echo obtained in the office April 2017 reveals preserved left ventricular systolic function with ejection fraction 50%, mild concentric left ventricular hypertrophy, grade 1 diastolic dysfunction, mild mitral regurgitation, mild aortic valve calcification with mild aortic regurgitation noted. His last stress test in the office 05/2018 was a lexiscan stress test was negative for reversible cardiac ischemia. GENERAL: Well-appearing, well-nourished and in no acute distress. NECK: Supple without JVD or thyromegaly. LUNGS: Breath sounds clear to auscultation bilaterally. Respiration equal and unlabored. No wheezes, rales or rhonchi. HEART: Regular rate and rhythm with systolic ejection murmur at the , rubs or gallops. S1 and S2 heard. EXTREMITIES: Normal range of motion, no edema. No clubbing or cyanosis. Peripheral pulses intact. ASSESSMENT Chest discomfort resolved with nitroglycerin suggestive of unstable angina History of coronary artery disease status post bypass grafting 20+ years ago Paroxysmal atrial fibrillation on long-term anticoagulation with Coumadin. Has been held since admission. INR today 1.9 Hypertension Dyslipidemia, LDL 118 PLAN Proceed with cardiac catheterization today. Further recommendations to follow based upon clinical course. Nurse Practitioner note has been reviewed, I agree with a documented findings and plan of care. Patient was seen and examined. Objective - Vital Signs Vital signs: Vital Signs Temp 97.5 F L 10/19/18 07:40 Pulse 69 10/19/18 07:40 Resp 18 10/19/18 07:40 BP 152/75 10/19/18 07:40 Pulse Ox 94 L 10/19/18 07:40 Intake & Output 10/18/18 10/19/18 10/19/18 18:59 06:59 18:59 Other: Voiding Method Toilet Toilet Toilet # Voids 1 - Labs CBC & Chem 7: 10/17/18 08:22 10/17/18 08:22 Labs: Abnormal Lab Results - Last 24 Hours (Table) 10/19/18 Range/Units 07:48 PT 18.6 H (9.0-12.0) sec INR 1.9 H (<1.2)
[2018-10-19] MEDS ORDERED: IOPAMIDOL-370 150ML BTL INJ ONE (10:57)
[2018-10-19] MEDS ORDERED: IV FLUID CONTINUATION 1,000 ML IV ONE (10:57)
[2018-10-19] MEDS ORDERED: RX INFO: IV CONTRAST WAS GIVEN 1 EACH MISC MISCELLANE PRN (11:11)
[2018-10-19] MEDS ORDERED: SODIUM CHLORIDE 0.9% 1,000 ML IV SCH (11:15)
--- NOTE | 2018-10-19 11:46 | CC ---
CARDIAC CATHETERIZATION REPORT DATE OF SERVICE: 10/19/2018 PERFORMING PHYSICIAN: Wm Alexander MD, Explosives Truck Driver. PROCEDURE PERFORMED: 1. Selective left and right coronary angiogram. 2. Left repeat selective left and right coronary angiogram. 3. Left internal mammary artery to LAD angiogram. 4. SVG to RCA angiogram. 5. Left heart catheterization. INDICATION: This is a in 83-year-old gentleman who sees Dr. Ugarte in the office as an outpatient with known history of coronary artery disease and prior coronary artery bypass grafting with SAMANIEGO to LAD and SVG to RCA. He presented to the hospital with chest discomfort, which was concerning for angina. He was seen by Dr. Cisneros who did recommend proceeding with a heart catheterization. The patient supposed to be cathed by Dr. Ugarte who is out of town. APPROACH: Right common femoral artery. COMPLICATION: None. LEVEL OF SEDATION: Moderate with sedation length of 31 minutes. PROCEDURE DESCRIPTION: After obtaining an informed consent, the patient was brought to cardiac labor arbitrator hearing office. The right radial artery. The right common femoral artery was cannulated using micropuncture technique and a micropuncture wire passed easily then I placed a 6-Swedish sheath 11 cm in the right common femoral artery. I did selective left and right coronary angiogram using JL4 and JR4 catheters. SAMANIEGO to LAD angiogram was performed using JR4 catheter. SVG to RCA angiogram was performed using the multipurpose catheter. Left heart catheterization was performed using multipurpose, which crossed the LV then I did pullback across aortic valve. The procedure was completed without any complication. Selective coronary angiogram. 1. The left main is a large caliber vessel. It is a nondominant vessel. I repeat the left main is a large caliber vessel and seems to be angiographically normal. It bifurcates into left circumflex and left ramus inter, ramus intermedius, and left anterior descending artery. 2. The circumflex is a large caliber vessel. It is a nondominant vessel and appeared to have mild disease only. 3. The ramus intermedius is a large caliber vessel and seems to be angiographically normal. 4. The LAD is 100% occluded in the proximal portion. 5. The RCA is 100% occluded in the midportion. 6. The SAMANIEGO to LAD is patent. 7. The SVG to RCA is patent. 8. HEMODYNAMIC: The left ventricular end-diastolic pressure was 12 mmHg without significant gradient across aortic valve. CONCLUSION: 1. Severe 2 vessel coronary artery disease involving the LAD and RCA. 2. Patent SAMANIEGO to LAD. 3. Patent SVG to RCA. 4. Mild disease involving the left circumflex coronary artery. POSTPROCEDURE MANAGEMENT: 1. Giving the above anatomy, I did recommend maximized medical treatment and follow up with Dr. Ugarte in the office. MMODL / IJN: [id number] /
--- NOTE | 2018-10-19 14:48 | P.PN ---
Subjective Progress Note Date: 10/19/18 John Silva is an 83-year-old male who presented to [facility] emergency room with a chief complaint of chest pain. Patient stated that early this morning about 5:30 AM he went out fishing he started setting up his fishing poles when he started having left sided chest pain he took subl ingual nitroglycerin and his chest pain improved then he started having some diaphoresis he went back home and had his drive him to emergency room he was evaluated in the emergency room first EKG and first set of cardiac enzymes were negative he has a known history of coronary artery disease with coronary artery bypass graft surgery 20 years ago he will be admitted to observation unit cardiology consultation was requested. On 10/18/2018 patient was seen and examined on the observation unit he is alert and oriented 3 in no apparent distress, this time he denies any complaints there is no chest pain or shortness of breath no palpitation no fever or chills no headache or dizziness no nausea or vomiting no abdominal pain no diarrhea and no urinary symptoms 10/19/2018 patient has been chest pain-free. He underwent heart catheterization showing severe 2 vessel coronary artery disease involving the LAD and RCA and mid disease of the left circumflex coronary artery. Cardiology is recommending medical management. Patient started on aspirin 81 mg daily and Lipitor 40 mg daily by cardiology. Patient's creatinine did increase to 1.45 baseline creatinine closer to 1.2-1.3. Patient will be kept overnight for IV fluid hydration to monitor his creatinine. Objective - Vital Signs Vital signs: Vital Signs Temp 97.7 F 10/19/18 11:25 Pulse 60 10/19/18 14:10 Resp 18 10/19/18 11:25 BP 157/72 10/19/18 14:10 Pulse Ox 94 L 10/19/18 14:10 Intake & Output 10/18/18 10/19/18 10/19/18 18:59 06:59 18:59 Intake Total 200 Balance 200 Intake: IV 100 Oral 100 Other: Voiding Method Toilet Toilet Toilet # Voids 1 - Exam Head normocephalic Neck supple Lungs clear to auscultation bilaterally no wheezing or crackles Heart regular rate and rhythm S1-S2, no rub or gallop Abdomen is soft nontender nondistended positive bowel sounds no hepatosplenomegaly Extremities no edema. +2 dorsalis pedis pulse right foot. Right groin no evidence of hematoma Neuro alert and orientated to 3 - Labs CBC & Chem 7: 10/19/18 07:48 10/19/18 07:48 Labs: Abnormal Lab Results - Last 24 Hours (Table) 10/19/18 10/19/18 10/19/18 Range/Units 07:48 07:48 07:48 WBC 11.3 H (3.8-10.6) k/uL RBC 6.11 H (4.30-5.90) m/uL Neutrophils # 8.0 H (1.3-7.7) k/uL PT 18.6 H (9.0-12.0) sec INR 1.9 H (<1.2) BUN 30 H (9-20) mg/dL Creatinine 1.45 H (0.66-1.25) mg/dL Glucose 113 H (74-99) mg/dL Assessment and Plan Assessment: #1 episode of chest pain: Possible unstable angina. Status post heart catheterization revealing severe 2 vessel coronary disease involving LAD and RCA and mid disease of the left circumflex coronary artery. Cardiology recommended medical management #2 underlying history of coronary artery disease #3 paroxysmal atrial fibrillation on Coumadin. Has been held since admission. INR is 1.9. Restart Coumadin tonight at 5 mg. Recheck PT/INR in a.m. #4 underlying history of hypertension #5 underlying history of hyperlipidemia #6 history of peripheral neuropathy severe per patient without history of diabetes #7 previous history of BPH with prostate surgery in the past #8 acute on chronic renal failure, stage III. Creatinine is up to 1.45. We'll continue normal saline at 75 mL an hour. Repeat kidney function in the morning. Baseline creatinine usually between 1.2 and 1.3 Anticipating discharge tomorrow, after hydration with IV fluids I performed an examination of the patient and discussed their management with the physician Green Inspector. I have reviewed the Physician Green Inspector's notes and agree with the documented findings and plan of care
[2018-10-19] MEDS ORDERED: WARFARIN 5 MG TAB PO SCH (18:00)
[2018-10-19] MEDS: amLODIPine 10 MG TAB PO SCH (20:27)
[2018-10-19] MEDS: CYANOCOBALAMIN 500 MCG TAB PO SCH (20:27)
[2018-10-19] MEDS: PANTOPRAZOLE 40 MG TABLET PO SCH (20:27)
[2018-10-19 23:52] VITALS: RESP 18
[2018-10-20 06:34] LABS: Basophils # (A) 0.1 k/uL (0-0.2); Basophils % (A) 1 %; Eosinophils # (A) 0.3 k/uL (0-0.7); Eosinophils % (A) 3 %; HCT 45.2 % (39.0-53.0); HGB 14.9 gm/dL (13.0-17.5); Lymphocytes # (A) 1.8 k/uL (1.0-4.8); Lymphocytes % (A) 18 %; MCH 27.3 pg (25.0-35.0); MCHC 32.9 g/dL (31.0-37.0); MCV 82.9 fL (80.0-100.0); Mean Platelet Volume 7.6; Monocytes # (A) 0.7 k/uL (0-1.0); Monocytes % (A) 7 %; Neutrophils # (A) 6.6 k/uL (1.3-7.7); Neutrophils % (A) 68 %; Platelet Count 177 k/uL (150-450); RBC 5.45 m/uL (4.30-5.90); RDW 14.1 % (11.5-15.5); WBC 9.7 k/uL (3.8-10.6)
[2018-10-20 06:38] LABS: INR 1.6 (<1.2); Prothrombin Time 15.8 sec (9.0-12.0)
[2018-10-20 06:45] LABS: Albumin 3.6 g/dL (3.5-5.0); Potassium 4.7 mmol/L (3.5-5.1); Total Bilirubin 0.7 mg/dL (0.2-1.3); Total Protein 6.1 g/dL (6.3-8.2)
[2018-10-20] MEDS: ASPIRIN 81 MG PO SCH (07:52)
[2018-10-20] MEDS: ATORVASTATIN 40 MG TAB PO SCH (07:52)
[2018-10-20 11:31] VITALS: BP 166/75; PULSE 71; TEMP 97.5
--- NOTE | 2018-10-20 12:22 | P.DS ---
Providers Date of admission: 10/17/18 10:25 Expected date of discharge: 10/20/18 Attending physician: Nikia Taylor Consults: 10/17/18 09:57 Consult Physician Urgent Consulting Provider: Wm Alexander Consult Reason/Comments: chest pain Do you want consulting provider notified?: Yes Primary care physician: Nandini Ruiz [facility] Course: Discharge diagnosis #1 episode of chest pain: Possible unstable angina. Status post heart catheterization revealing severe 2 vessel coronary disease involving LAD and RCA and mild disease of the left circumflex coronary artery. Cardiology recommended medical management #2 underlying history of coronary artery disease #3 paroxysmal atrial fibrillation on Coumadin. INR at discharge is 1.6. Will give patient Coumadin 7.5 mg today before discharge and then resume home medication. #4 underlying history of hypertension #5 underlying history of hyperlipidemia #6 history of peripheral neuropathy severe per patient without history of diabe federica #7 previous history of BPH with prostate surgery in the past #8 acute on chronic renal failure, stage III. Creatinine is up to 1.45. Baseline creatinine usually between 1.2 and 1.3. Kidneys have improved with IV fluid hydration creatinine is now normal at 1.19 Hospital course John Silva is an 83-year-old male who presented to [facility] emergency room with a chief complaint of chest pain. Patient stated that early this morning about 5:30 AM he went out fishing he started setting up his fishing poles when he started having left sided chest pain he took sublingual nitroglycerin and his chest pain improved then he started having some diaphoresis he went back home and had his drive him to emergency room he was evaluated in the emergency room first EKG and first set of cardiac enzymes were negative he has a known history of coronary artery disease with coronary artery bypass graft surgery 20 years ago he will be admitted to observation unit cardiology consultation was requested. On 10/18/2018 patient was seen and examined on the observation unit he is alert and oriented 3 in no apparent distress, this time he denies any complaints there is no chest pain or shortness of breath no palpitation no fever or chills no headache or dizziness no nausea or vomiting no abdominal pain no diarrhea and no urinary symptoms 10/19/2018 patient has been chest pain-free. He underwent heart catheterization showing severe 2 vessel coronary artery disease involving the LAD and RCA and mid disease of the left circumflex coronary artery. Cardiology is recommending medical management. Patient started on aspirin 81 mg daily and Lipitor 40 mg daily by cardiology. Patient's creatinine did increase to 1.45 baseline creatinine closer to 1.2-1.3. Patient will be kept overnight for IV fluid hydration to monitor his creatinine. 10/20/2018 patient is medically stable for discharge. He has been cleared by cardiology for discharge. He's been chest pain-free. He underwent heart catheterization as stated above. There was severe coronary disease noted in the LAD and RCA and mild disease in the left circumflex coronary artery. Cardiology is recommending medical management. And again patient has been chest pain-free. He is stable for discharge. We'll have him follow-up with cardiology in [address] Bhatti in 1 week. Patient Condition at Discharge: Stable Plan - Discharge Summary Discharge Rx Participant: Yes New Discharge Prescriptions: No Action Warfarin [Coumadin] 5 mg PO W/SUPPER Nitroglycerin Sl Tabs [Nitrostat] 0.4 mg SUBLINGUAL Q5M PRN PRN Reason: Chest Pain Omeprazole [PriLOSEC] 20 mg PO HS amLODIPine [Norvasc] 10 mg PO HS Cyanocobalamin (Vitamin B-12) [Vitamin B-12] 500 mcg PO HS Loratadine [Claritin] 1 tab PO HS Discharge Medication List Nitroglycerin Sl Tabs [Nitrostat] 0.4 mg SUBLINGUAL Q5M PRN 04/08/14 [History] Omeprazole [PriLOSEC] 20 mg PO HS 04/08/14 [History] Warfarin [Coumadin] 5 mg PO W/SUPPER 04/08/14 [History] Cyanocobalamin (Vitamin B-12) [Vitamin B-12] 500 mcg PO HS 10/17/18 [History] amLODIPine [Norvasc] 10 mg PO HS 10/17/18 [History] Loratadine [Claritin] 1 tab PO HS 10/18/18 [History] Follow up Appointment(s)/Referral(s): Wm Alexander MD [STAFF PHYSICIAN] - 10/29/18 2:15 pm Nonstaff,Physician [REFERRING] - 1-2 days
[2018-10-20] MEDS ORDERED: WARFARIN 7.5 MG TAB PO ONE ×2 (12:34→18:00)
--- NOTE | 2018-10-20 12:37 | P.PN ---
Subjective This is a pleasant 83-year-old male past medical history significant for coronary artery disease status post bypass grafting with SAMANIEGO-LAD and SVG- RCA, dyslipidemia, hypertension, paroxysmal atrial fibrillation on middle or intermediate school principal anticoagulation, gastroesophageal reflux disease and obstructive sleep apnea. He follows with Dr. Ugarte in the office. He underwent cardiac catheterization yesterday revealing a patent SAMANIEGO-LAD and SVG-RCA with mild non-obstructive disease of the circumflex artery. He is seen and examined resting comfortably in bed in no acute distress. He denies any further symptoms of chest discomfort. He was kept overnight by the primary care team to recheck his kidney function this morning. Creatinine today is 1.19, INR 1.6. Coumadin has been resumed. Blood pressure 166/75 heart rate 71 afebrile and maintaining oxygen saturation on room air. He has been up ambulating without difficulty or pain in his right leg/groin. GENERAL: Well-appearing, well-nourished and in no acute distress. NECK: Supple without JVD or thyromegaly. LUNGS: Breath sounds clear to auscultation bilaterally. Respiration equal and unlabored. No wheezes, rales or rhonchi. HEART: Regular rate and rhythm with systolic ejection murmur at the left sternal border, no rubs or gallops. S1 and S2 heard. EXTREMITIES: Normal range of motion, no edema. No clubbing or cyanosis. Peripheral pulses intact. Right groin puncture site clean, dry and intact with no swelling, hematoma, bleeding or ecchymosis noted. ASSESSMENT Chest discomfort resolved with nitroglycerin suggestive of unstable angina. History of coronary artery disease status post bypass grafting 20+ years ago Paroxysmal atrial fibrillation on long-term anticoagulation with Coumadin. Has been held since admission. INR today 1.9 Hypertension Dyslipidemia, LDL 118 PLAN Stable from a cardiac perspective. Follow up with Dr. Ugarte in for a groin check. Nurse Practitioner note has been reviewed, I agree with a documented findings and plan of care. Patient was seen and examined. Objective - Vital Signs Vital signs: Vital Signs Temp 97.5 F L 10/20/18 11:31 Pulse 71 10/20/18 12:00 Resp 18 10/20/18 12:00 BP 166/75 10/20/18 11:31 Pulse Ox 96 10/20/18 11:31 Intake & Output 10/19/18 10/20/18 10/20/18 18:59 06:59 18:59 Intake Total 400 620 Balance 400 620 Intake: IV 100 Oral 300 420 Other 200 Other: Voiding Method Toilet Toilet Toilet # Voids 1 - Labs CBC & Chem 7: 10/20/18 06:02 10/20/18 06:02 Labs: Abnormal Lab Results - Last 24 Hours (Table) 10/20/18 10/20/18 Range/Units 06:02 06:02 PT 15.8 H (9.0-12.0) sec INR 1.6 H (<1.2) BUN 22 H (9-20) mg/dL Glucose 105 H (74-99) mg/dL Total Protein 6.1 L (6.3-8.2) g/dL
== END 2018-10-20 13:05 | disposition home or self-care (01) ==
LOC: EC 08:09 → 1SOBS 10:25
PROVIDERS: ADMIT Internal Medicine; ATTEND Internal Medicine
DX: R07.89 Other chest pain (principal); I25.10 Atherosclerotic heart disease of native coronary artery without angina pectoris; N17.9 Acute kidney failure, unspecified; I13.10 Hypertensive heart and chronic kidney disease without heart failure, with stage 1 through stage 4 chronic kidney disease, or unspecified chronic kidney disease; N18.3 Chronic kidney disease, stage 3 (moderate); I48.0 Paroxysmal atrial fibrillation; R61 Generalized hyperhidrosis; T46.3X5A Adverse effect of coronary vasodilators, initial encounter; E78.5 Hyperlipidemia, unspecified; I48.92 Unspecified atrial flutter; G62.9 Polyneuropathy, unspecified; I44.0 Atrioventricular block, first degree; K21.9 Gastro-esophageal reflux disease without esophagitis; H91.90 Unspecified hearing loss, unspecified ear; G47.33 Obstructive sleep apnea (adult) (pediatric); Z99.89 Dependence on other enabling machines and devices; Z87.891 Personal history of nicotine dependence; Z79.01 Long term (current) use of anticoagulants; Z79.899 Other long term (current) drug therapy; I25.2 Old myocardial infarction; Z85.46 Personal history of malignant neoplasm of prostate; Z96.0 Presence of urogenital implants; Z95.1 Presence of aortocoronary bypass graft; Z91.19 Patient's noncompliance with other medical treatment and regimen; Z87.438 Personal history of other diseases of male genital organs; Z80.9 Family history of malignant neoplasm, unspecified
CPT/HCPCS: 99152; 99153; 99285; 36415; 93005; 93459; 80061; 80053 ×3; 83735; 84484; 85025 ×3; 85610 ×4; 85730; 71046; G0378 ×4; C1769 ×3; C1894; C1760; J2250; J2001; J3010; Q9967

== ENCOUNTER → 2018-10-29 | Outpatient (CLI) | payer MEDICARE, BC ==
[2018-10-29 14:31] LABS: Basophils # (A) 0.1 k/uL (0-0.2); Basophils % (A) 1 %; Eosinophils # (A) 0.2 k/uL (0-0.7); Eosinophils % (A) 2 %; HCT 45.8 % (39.0-53.0); HGB 14.7 gm/dL (13.0-17.5); Lymphocytes # (A) 1.8 k/uL (1.0-4.8); Lymphocytes % (A) 18 %; MCH 27.7 pg (25.0-35.0); MCHC 32.2 g/dL (31.0-37.0); MCV 86.1 fL (80.0-100.0); Mean Platelet Volume 7.9; Monocytes # (A) 0.7 k/uL (0-1.0); Monocytes % (A) 7 %; Neutrophils # (A) 6.9 k/uL (1.3-7.7); Neutrophils % (A) 69 %; Platelet Count 227 k/uL (150-450); RBC 5.32 m/uL (4.30-5.90); RDW 14.6 % (11.5-15.5)
[2018-10-29 14:36] LABS: Appearance,Urine Clear (Clear); Bacteria,Urine Rare /hpf; Bilirubin,Urine Negative (Negative); Blood,Urine Small (Negative); Color,Urine Yellow; Glucose,Urine (UA) Negative (Negative); Hyaline Casts,Urine 1 /lpf (0-2); Ketones,Urine Negative (Negative); Leukocyte Esterase,Urine Negative (Negative); Mucus,Urine Rare /hpf; Nitrite,Urine Negative (Negative); PH, Urine 5.5 (5.0-8.0); Protein,Urine Trace (Negative); RBC,Urine 1 /hpf (0-5); Specific Gravity,Urine 1.016 (1.001-1.035); Urobilinogen,Urine <2.0 mg/dL (<2.0); WBC,Urine <1 /hpf (0-5)
[2018-10-29 18:45] LABS: Parathyroid Hormone Intact 47.8 pg/mL (14.0-72.0)
[2018-10-29 19:37] LABS: Iron Saturation 12.58 (15.00-50.00)
[2018-10-29 19:40] LABS: Albumin 4.2 g/dL (3.80-4.90); Albumin/Globulin Ratio 2.1 (1.60-3.17); Anion Gap 10.4 mmol/L (4.00-12.00); Calcium 9.3 mg/dL (8.7-10.3); Carbon Dioxide 23.6 mmol/L (21.6-31.8); Magnesium 1.8 mg/dL (1.5-2.4); Phosphorus 3.3 mg/dL (2.4-5.1); Potassium 4.3 mmol/L (3.5-5.5); Total Bilirubin 0.4 mg/dL (0.3-1.2); Total Protein 6.2 g/dL (6.2-8.2); Uric Acid 7.4 mg/dL (3.7-8.7)
[2018-10-29 19:45] LABS: Vitamin D 25 Hydroxy 23.2 ng/mL (30.0-100.0)
[2018-10-30 03:52] LABS: Creatinine,Urine Random 154.2 mg/dL
[2018-10-30 04:01] LABS: Total Protein,Urine Random 18.7 mg/dL (0.0-13.5)
== END | disposition home or self-care (01) ==
LOC: LABWHC1 13:35
PROVIDERS: ATTEND Nurse Practitioner Family
DX: N39.0 Urinary tract infection, site not specified (principal); D63.1 Anemia in chronic kidney disease; N18.3 Chronic kidney disease, stage 3 (moderate); E79.0 Hyperuricemia without signs of inflammatory arthritis and tophaceous disease; R80.9 Proteinuria, unspecified; E55.9 Vitamin D deficiency, unspecified; N25.81 Secondary hyperparathyroidism of renal origin
CPT/HCPCS: 36415; 80053; 81001; 82306; 82570; 82728; 83540; 83550; 83735; 83970; 84100; 84156; 84550; 85025

== ENCOUNTER → 2018-12-01 | Outpatient (CLI) | payer MEDICARE, BC ==
--- NOTE | 2018-12-01 12:43 | US ---
EXAMINATION TYPE: US thyroid st tissue head/neck DATE OF EXAM: 12/01/2018 COMPARISON: NONE CLINICAL HISTORY: R22.1 Localized swelling. Patient initially points to palpable lymph node in left lateral neck which technologist measures. Upo n further scanning technologist finds multiple probable nodes largest measuring 1.9 x 1.0 x 1.5, lack ing normal appearing fatty hilum. IMPRESSION: Sonographically abnormal appearing left neck adenopathy. Further imaging with CT of the n jimmie and chest could be performed versus fine-needle aspiration.
== END | disposition home or self-care (01) ==
LOC: RADUSWWP 11:52
PROVIDERS: ATTEND Family Medicine
DX: R59.0 Localized enlarged lymph nodes (principal)
CPT/HCPCS: 76536

== ENCOUNTER → 2018-12-09 | Outpatient (CLI) | payer MEDICARE, BC ==
[2018-12-09 16:58] LABS: Anion Gap 10.2 mmol/L (4.00-12.00); Calcium 9.6 mg/dL (8.7-10.3); Carbon Dioxide 24.8 mmol/L (21.6-31.8); Potassium 5.4 mmol/L (3.5-5.5)
== END | disposition home or self-care (01) ==
LOC: LABWHC1 10:24
PROVIDERS: ATTEND Internal Medicine Nephrology
DX: N18.3 Chronic kidney disease, stage 3 (moderate) (principal)
CPT/HCPCS: 36415; 80048

== ENCOUNTER → 2018-12-15 | Outpatient (CLI) | payer MEDICARE, BC ==
[2018-12-15 09:17] LABS: Anisocytosis Slight; Basophils # (A) 0.1 k/uL (0-0.2); Basophils % (A) 1 %; Eosinophils # (A) 0.5 k/uL (0-0.7); Eosinophils % (A) 5 %; HCT 47.5 % (39.0-53.0); HGB 15.3 gm/dL (13.0-17.5); Lymphocytes # (A) 1.6 k/uL (1.0-4.8); Lymphocytes % (A) 16 %; MCH 27.7 pg (25.0-35.0); MCHC 32.1 g/dL (31.0-37.0); MCV 86.3 fL (80.0-100.0); Mean Platelet Volume 7.5; Monocytes # (A) 0.8 k/uL (0-1.0); Monocytes % (A) 7 %; Neutrophils # (A) 7.1 k/uL (1.3-7.7); Neutrophils % (A) 69 %; Platelet Count 197 k/uL (150-450); WBC 10.3 k/uL (3.8-10.6)
[2018-12-15 23:37] LABS: EBV-VCA (IgG) >8.0 AI
== END ==
LOC: LABWHC1 08:39
PROVIDERS: ATTEND Otolaryngology
DX: R22.1 Localized swelling, mass and lump, neck (principal)
CPT/HCPCS: 36415; 82378; 82565; 83615; 84520; 84585; 85025; 86611; 86663; 86664; 86665

== ENCOUNTER → 2018-12-23 | Outpatient (CLI) | payer MEDICARE, BC ==
--- NOTE | 2018-12-23 12:06 | CT ---
EXAMINATION TYPE: CT neck chest without con DATE OF EXAM: 12/23/2018 COMPARISON: Prior CT 08/30/2014, prior CT neck dated 08/19/2016 HISTORY: Left side neck mass CT DLP: 1370 mGycm Automated exposure control for dose reduction was used. Helical imaging performed through the neck an d chest without contrast. FINDINGS: NECK: Lack of contrast could compromise sensitivity. Multiple enlarged nodes have developed in the interval along the supraclavicular region on the left, deep to the sternocleidomastoid muscle on the left, at the level of the palpable abnormality, deep to the sternocleidomastoid muscle there is an enlarged node with a short axis measurement of 12 mm. Lung apices show emphysematous changes. Patient is post median sternotomy. Inflammatory change presen t within the right maxillary sinus. Multilevel facet arthropathy, degenerative disc changes in the vi sualized spine. CHEST: Within the left lower lobe there is a nodular density with some spiculated margins on axial im age 47 measuring subcentimeter in size, possibly 9 mm with suggestion of pleural extension and an ova l configuration. There is no pleural or pericardial effusion. This is an interval finding compared to prior CT. Emphysematous changes are scattered within the lungs. There is no mediastinal, axillary, o r hilar adenopathy. Coronary artery calcifications are present. Calcified pleural plaques are noted incidentally. Upper abdomen is remarkable for some small subcentimeter hypodensities within the liver which are sub centimeter in size. There is a small hiatal hernia present. IMPRESSION: NEW CERVICAL ADENOPATHY DESCRIBED. Indeterminate nodular focus within the left lower lobe is suspi cious, consider metastatic disease. Noncontrast exam. Indeterminate subcentimeter lesions within the liver.
== END | disposition home or self-care (01) ==
LOC: RADCTMAIN 07:41
PROVIDERS: ATTEND Otolaryngology
DX: R59.0 Localized enlarged lymph nodes (principal)
CPT/HCPCS: 70490; 71250

== ENCOUNTER 2019-01-04 08:46 | Day surgery (SDC) | payer MEDICARE, BC ==
[2019-01-04 09:28] VITALS: RESP 16; TEMP 98
[2019-01-04] MEDS ORDERED: ALPRAZolam 0.25 MG TAB PO STA (09:34)
--- NOTE | 2019-01-04 10:41 | P.PCN ---
Date of Procedure: 01/04/19 Preoperative Diagnosis: lymphadenopathy left neck Postoperative Diagnosis: same Procedure(s) Performed: fna and core biopsy left neck node Anesthesia: local Estimated Blood Loss (ml): 5 Pathology: other (core specimen in formalin, fna to cyto) Disposition: no change Indications for Procedure: above
[2019-01-04 11:09] VITALS: BP 159/71; PULSE 52
--- NOTE | 2019-01-04 12:02 | US ---
EXAMINATION TYPE: US biopsy lymph node DATE OF EXAM: 01/04/2019 HISTORY: Left neck adenopathy.Abnormal PET/CT FINDINGS: Maximal barrier technique was utilized. The skin overlying a suitable path to one of the p atient's left neck nodes was localized with ultrasound and the overlying skin prepped and draped. Ul trasound was utilized with sterile technique. Lidocaine was used for local anesthesia. 2 passes were made with ultrasound guidance with a 25-gauge needle, fine-needle aspiration submitted to cytology. A skin janie was made with a scalpel. An 18-gauge needle was advanced under direct ultrasound guidanc e and core specimen obtained of the abnormal node following discussion with the pathologist. Specime n submitted in formalin to Pathology. Following the procedure, hemostasis achieved and the patient i s discharged in stable condition without complication. IMPRESSION:STATUS POST ULTRASOUND GUIDED CORE BIOPSY AND FINE-NEEDLE ASPIRATION OF left neck node, ad enopathy, PATHOLOGY IS PENDING. THIS PROCEDURE IS PERFORMED BY THE UNDERSIGNED.
--- NOTE | 2019-01-04 14:15 | US ---
Fine-needle aspiration See dictated report of same same date on ultrasound biopsy lymph node
== END 2019-01-04 10:50 | disposition home or self-care (01) ==
LOC: RADPROMAIN 08:46
PROVIDERS: ATTEND Otolaryngology
DX: C77.0 Secondary and unspecified malignant neoplasm of lymph nodes of head, face and neck (principal)
CPT/HCPCS: 10005; 38505; 76942; 88173; 88305; 88341; 88342

== ENCOUNTER → 2019-01-18 | Outpatient (CLI) | payer MEDICARE, BC ==
[2019-01-18 09:13] LABS: Basophils # (A) 0.1 k/uL (0-0.2); Basophils % (A) 1 %; Eosinophils # (A) 0.5 k/uL (0-0.7); Eosinophils % (A) 5 %; HCT 47.6 % (39.0-53.0); HGB 15.9 gm/dL (13.0-17.5); Lymphocytes # (A) 1.6 k/uL (1.0-4.8); Lymphocytes % (A) 17 %; MCH 28.6 pg (25.0-35.0); MCHC 33.3 g/dL (31.0-37.0); MCV 85.9 fL (80.0-100.0); Mean Platelet Volume 7.6; Monocytes # (A) 0.7 k/uL (0-1.0); Monocytes % (A) 7 %; Neutrophils # (A) 6.3 k/uL (1.3-7.7); Neutrophils % (A) 67 %; Platelet Count 160 k/uL (150-450); RBC 5.54 m/uL (4.30-5.90); WBC 9.4 k/uL (3.8-10.6)
[2019-01-18 09:16] LABS: Appearance,Urine Clear (Clear); Bilirubin,Urine Negative (Negative); Blood,Urine Negative (Negative); Color,Urine Yellow; Glucose,Urine (UA) Negative (Negative); Ketones,Urine Negative (Negative); Leukocyte Esterase,Urine Negative (Negative); Nitrite,Urine Negative (Negative); PH, Urine 6.5 (5.0-8.0); Protein,Urine Negative (Negative); Urobilinogen,Urine <2.0 mg/dL (<2.0)
[2019-01-18 15:59] LABS: African American GFR (CKD) 58.9 (60.0-200.0); Albumin 4.5 g/dL (3.80-4.90); Anion Gap 8.6 mmol/L (4.00-12.00); BUN/Creat Ratio 19.23 Ratio (12.00-20.00); Calcium 9.5 mg/dL (8.7-10.3); Carbon Dioxide 26.4 mmol/L (21.6-31.8); Phosphorus 3.1 mg/dL (2.4-5.1); Potassium 4.5 mmol/L (3.5-5.5); Uric Acid 7.1 mg/dL (3.7-8.7)
[2019-01-18 16:05] LABS: Vitamin D 25 Hydroxy 61.7 ng/mL (30.0-100.0)
[2019-01-18 16:20] LABS: Iron Saturation 20.3 (15.00-50.00)
[2019-01-18 17:34] LABS: Creatinine,Urine Random 78.4 mg/dL
[2019-01-18 18:21] LABS: Total Protein,Urine Random 15.7 mg/dL (0.0-13.5)
== END | disposition home or self-care (01) ==
LOC: LABWHC1 08:07
PROVIDERS: ATTEND Internal Medicine Nephrology
DX: N39.0 Urinary tract infection, site not specified (principal); M10.9 Gout, unspecified; N18.3 Chronic kidney disease, stage 3 (moderate); E55.9 Vitamin D deficiency, unspecified; D50.9 Iron deficiency anemia, unspecified; N25.81 Secondary hyperparathyroidism of renal origin
CPT/HCPCS: 36415; 80048; 81003; 82040; 82306; 82570; 82728; 83540; 83550; 83735; 83970; 84100; 84156; 84550; 85025

== ENCOUNTER 2019-01-22 12:10 | Day surgery (SDC) | payer MEDICARE, BC ==
[2019-01-21 11:37] VITALS: BMI 26.6
[~2019-01-22 12:10] MED LIST: LACTATED RINGERS 1,000 ML IV SCH
[2019-01-22 12:37] VITALS: TEMP 97.2
[2019-01-22] MEDS ORDERED: PROPOFOL 10 MG/ML 20 ML VIAL IV ONE (12:59)
--- NOTE | 2019-01-22 13:05 | P.GSHP ---
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 Mild heartburn and occasional dysphagia. Complaining of neck pain. No abdominal pain. No rectal bleeding. 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 IRON DEFICIENCY ANEMIA. 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 Past Anesthesia/Blood Transfusion Reactions: No Reported Reaction Additional Past Anesthesia/Blood Transfusion Reaction / Comment(s): no known hx blood transfusions or complications Smoking Status: Former smoker - Past Family History Father Family Medical History: Cancer Medications and Allergies Home Medications Medication Instructions Recorded Confirmed Type Nitroglycerin Sl Tabs [Nitrostat] 0.4 mg SUBLINGUAL Q5M PRN 04/08/14 01/22/19 History Omeprazole [PriLOSEC] 20 mg PO HS 04/08/14 01/22/19 History Warfarin [Coumadin] 5 mg PO W/SUPPER 04/08/14 01/21/19 History amLODIPine [Norvasc] 10 mg PO HS 10/17/18 01/22/19 History Ergocalciferol (Vitamin D2) 50,000 unit PO [id number] 12/22/18 01/22/19 History [Vitamin D2] Vitamin B Complex 1 each PO DAILY 12/22/18 01/22/19 History Allergies Allergy/AdvReac Type Severity Reaction Status Date / Time No Known Allergies Allergy Verified 01/22/19 12:30 Surgical - Exam Vital Signs Temp Pulse Resp BP Pulse Ox 97.2 F L 55 L 16 178/84 97 01/22/19 12:35 01/22/19 12:35 01/22/19 12:35 01/22/19 12:35 01/22/19 12:35 Physical exam: General: Well-developed, well-nourished HEENT: Normocephalic, sclerae nonicteric Abdomen: Nontender, nondistended Extremities: No edema Neuro: Alert and oriented Assessment and Plan (1) GERD (gastroesophageal reflux disease) Narrative/Plan: Will proceed with upper endoscopy. Current Visit: Yes Status: Acute Code(s): K21.9 - GASTRO-ESOPHAGEAL REFLUX DISEASE WITHOUT ESOPHAGITIS SNOMED Code(s): 032707586
--- NOTE | 2019-01-22 13:15 | P.PCN ---
Date of Procedure: 01/22/19 Procedure(s) Performed: Preoperative Dx: GERD, cancer unknown primary Postoperative Dx: Mild gastritis Procedure: EGD with Bx Anesthesia: Sedation Endoscopist: Dr. Mendiola Specimens: Antral Endoscopic Procedure: The patient was on the endoscopy table in the left decubitus position. The Olympus gastroscope was inserted into the oropharynx and passed under direct visualization to the region of the third portion of the duodenum. From that point the scope was slowly withdrawn inspecting all surfaces carefully. There were no neoplastic inflammatory or polypoid lesions throughout the duodenum. The pylorus was widely patent. The stomach was carefully inspected. There was mild gastritis present. A biopsy of the antrum took place to rule out H. pylori. Retroflexion revealed a normal hiatus. The esophagus was then carefully examined. There were no neoplastic inflammatory or polypoid lesions throughout the visualized esophagus. The patient was then taken to the recovery room in stable condition per anesthesia guidelines. Recommendations: Continue workup. Await biopsies results.
[2019-01-22 13:41] VITALS: BP 153/75; PULSE 60; RESP 18
== END 2019-01-22 14:04 | disposition home or self-care (01) ==
LOC: ORWHC2ENDO 12:10
PROVIDERS: ATTEND Surgery
DX: K21.9 Gastro-esophageal reflux disease without esophagitis (principal); K29.50 Unspecified chronic gastritis without bleeding; I12.9 Hypertensive chronic kidney disease with stage 1 through stage 4 chronic kidney disease, or unspecified chronic kidney disease; N18.9 Chronic kidney disease, unspecified; C77.0 Secondary and unspecified malignant neoplasm of lymph nodes of head, face and neck; E78.5 Hyperlipidemia, unspecified; D50.9 Iron deficiency anemia, unspecified; I25.119 Atherosclerotic heart disease of native coronary artery with unspecified angina pectoris; Z95.1 Presence of aortocoronary bypass graft; I48.91 Unspecified atrial fibrillation; I25.2 Old myocardial infarction; H91.90 Unspecified hearing loss, unspecified ear; Z97.2 Presence of dental prosthetic device (complete) (partial); Z85.46 Personal history of malignant neoplasm of prostate; Z90.79 Acquired absence of other genital organ(s); Z85.828 Personal history of other malignant neoplasm of skin; Z79.01 Long term (current) use of anticoagulants; Z79.899 Other long term (current) drug therapy; Z87.891 Personal history of nicotine dependence; Z80.9 Family history of malignant neoplasm, unspecified
CPT/HCPCS: 43239; 88305; J2704; 43202

== ENCOUNTER → 2019-03-30 | Outpatient (CLI) | payer MEDICARE, BC ==
--- NOTE | 2019-03-30 10:54 | XR ---
EXAMINATION TYPE: XR chest 2V DATE OF EXAM: 03/30/2019 COMPARISON: Chest x-ray October 17, 2018. CT chest December 23, 2018. HISTORY: Shortness of breath. TECHNIQUE: Frontal and lateral views of the chest are obtained. FINDINGS: There is background chronic emphysematous change without suspicious new focal air space op acity, pleural effusion, or pneumothorax seen. Overlying sternal wires redemonstrated, superior villa al wire is broken similar to prior. The cardiac silhouette size remains within normal limits with at herosclerotic aorta. Degenerative change right glenohumeral joint is redemonstrated.. IMPRESSION: Chronic emphysematous change without acute pulmonary process.
== END | disposition home or self-care (01) ==
LOC: RADXRMAIN 10:29
PROVIDERS: ATTEND Family Medicine
DX: R06.02 Shortness of breath (principal)
CPT/HCPCS: 71046

== ENCOUNTER → 2019-04-10 | Outpatient (CLI) | payer MEDICARE, BC ==
--- NOTE | 2019-04-11 15:38 | PE ---
EXAMINATION TYPE: PET CT fusion skull to thigh DATE OF EXAM: 04/10/2019 COMPARISON: 12/23/2018 Prior PET/CT: 01/02/2019 HISTORY: Solitary pulmonary nodule TECHNIQUE: Following the intravenous administration of 12.086 mCi of F-18 FDG, whole body images are performed from the skull base to the midthigh. Images are reviewed on the computer in the coronal, axial, and sagittal planes. Reconstructed rotating images are created on independent workstation and reviewed on the computer. A localization and attenuation correction CT is performed in conjunction with the PET scan. DLP: 439.01 mGycm SCAN: Subsequent Blood glucose: 91 mg/dL Average Mediastinum SUV: 1.46 Average Liver SUV: 2.16 FINDINGS: NECK: There is increased uptake below the level of the left parotid gland and the left neck with an SUV value of 2.62. PET image 27. These uptake is in the left salivary gland region with an SUV value of 2.46. Image 33. Uptake is within the left neck small lymph nodes in the range of 2.01 and 2.04 the se are nonspecific. Metastasis could be considered. Inflammatory change may be present as smaller nod es. THORAX: No abnormal uptake ABDOMEN: There is some focal uptake at the gastroesophageal junction which can be normal. EGD can be performed if there is concern at this level. Uptake is slightly increased at 3.0. PELVIS: No abnormal uptake. There appears to be normal uptake within loops of bowel. OSSEOUS STRUCTURES: No abnormal uptake LOCALIZATION CT: Ascending thoracic aorta at the level of main pulmonary artery is 3.5 cm. The main p ulmonary artery the bifurcation is 3.0 cm. Vascular calcifications through the aorta. Small amount of left pleural calcification is present posteriorly. COMPARISON: Multiple areas of increased signal through the left neck node chain with elevated SUV lobo ue suspicious for neoplasm. IMPRESSION: 1. Diminished radiotracer accumulation through a left neck lymph node chain. SUV values remain elevat ed neoplastic range.
== END | disposition home or self-care (01) ==
LOC: RADPETMAIN 10:08
PROVIDERS: ATTEND Internal Medicine Hematology & Oncology
DX: C34.32 Malignant neoplasm of lower lobe, left bronchus or lung (principal); Z92.21 Personal history of antineoplastic chemotherapy
CPT/HCPCS: 78815; A9552

== ENCOUNTER → 2019-06-05 | Outpatient (CLI) | payer MEDICARE, BC ==
--- NOTE | 2019-06-09 09:15 | PE ---
Nuclear medicine PET/CT HISTORY: Lung cancer, subsequent Patient received 11.8 mCi F-18 FDG intravenously in delayed scanning was performed from skull base to the mid thighs. Localization and attenuation correction CT scan was performed. Correlation to prior nuclear medicine PET/CT 04/10/2019 Neck and chest: Along the left neck anterior cervical chain deep to the sternocleidomastoid muscle an d in the submandibular location on the left there are multiple enlarged and nonenlarged lymph nodes p resent with some hypermetabolic uptake, SUV approximately 3.2. Small supraclavicular nodes are also p resent. There is no mediastinal, axillary, or hilar adenopathy. Coronary artery calcifications are pr esent. Patient is post median sternotomy. The heart is enlarged. No pleural or pericardial effusion. No evident lung mass. ABDOMEN: No evident liver mass, no suspicious hypermetabolic uptake. No adrenal mass. No retroperiton eal adenopathy. No ascites. [place] is present superior to the bladder with tubing coursing via the inguinal canal on the right towards the penile prosthesis. Left inguinal hernia contains fat. Patien t is post prostatectomy. No pelvic adenopathy. Osseous structures are unchanged. No suspicious hypermetabolic uptake. IMPRESSION: Mild uptake corresponding to neck nodes as described, nodes along the left neck show gabriela lar size and activity compared to prior exam. Cardiomegaly, coronary artery disease.
== END | disposition home or self-care (01) ==
LOC: RADPETMAIN 09:22
PROVIDERS: ATTEND Internal Medicine Hematology & Oncology
DX: C34.32 Malignant neoplasm of lower lobe, left bronchus or lung (principal); I25.10 Atherosclerotic heart disease of native coronary artery without angina pectoris; R93.89 Abnormal findings on diagnostic imaging of other specified body structures
CPT/HCPCS: 78815; A9552

== ENCOUNTER → 2019-11-19 | Outpatient (CLI) | payer MEDICARE, BC ==
--- NOTE | 2019-11-21 16:19 | PE ---
Nuclear medicine PET/CT HISTORY: Lung carcinoma, subsequent Patient received 11.8 mCi F-18 FDG intravenously in delayed scanning was performed from the skull bas e to the mid thighs. Localization and attenuation correction CT scan was performed. Correlation to prior nuclear medicine PET/CT 09/04/2019 Neck and chest: Adenopathy is present along the left anterior cervical chain deep to the sternocleido mastoid muscle extending to the supraclavicular region, multiple nodes show hypermetabolic uptake. Jaramillo praclavicular node shows SUV 3.7 on the left which is decreased compared to prior when it measured 4. 5, submandibular node shows SUV 3.9 which is decreased compared to prior when it measured approximate ly 4.6. There is no evident lung mass. No pleural or pericardial effusion. No endobronchial lesion. T here are coronary artery calcifications. Patient is post median sternotomy. Soft tissue left parotid mass could represent a node shows a similar appearance but decreased activity. ABDOMEN: Liver shows a focus of low density in the posterior aspect of the inferior right lobe subcen timeter in size, no associated hypermetabolic uptake. Gallbladder is unremarkable. No ascites. No ret roperitoneal adenopathy. Atheromatous changes are present within the aorta, left common iliac artery measures 2.3 cm proximally, extensive iliac artery calcifications are present. There is a reservoir p resent anterior to the bladder, penile prosthesis is noted incidentally. No pelvic adenopathy or free fluid. Patient is post prostatectomy. No suspicious hypermetabolic uptake present. There is likely p hysiologic bowel activity. Left inguinal hernia suspected, fat noted within the left inguinal canal. Surgical clips are present within the groins. Osseous structures: There is some mild uptake noted within the anterior left sixth rib, SUV only 2.1. Mild uptake at the left costovertebral angle at approximately T7 or 8 shows SUV only 2.5 IMPRESSION: Adenopathy again seen along the left neck shows a similar distribution, intensity of upta ke is reduced as compared to prior, additional findings above
== END | disposition home or self-care (01) ==
LOC: RADPETMAIN 07:24
PROVIDERS: ATTEND Internal Medicine Hematology & Oncology
DX: R50.9 Fever, unspecified (principal); C34.32 Malignant neoplasm of lower lobe, left bronchus or lung
CPT/HCPCS: 78815; A9552

== ENCOUNTER → 2020-02-11 | Outpatient (CLI) | payer MEDICARE, BC ==
--- NOTE | 2020-02-12 15:52 | PE ---
EXAMINATION TYPE: PET CT fusion skull to thigh DATE OF EXAM: 02/11/2020 COMPARISON: CT chest neck 12/23/2018 Prior PET/CT: 11/19/2019 HISTORY: Lung cancer TECHNIQUE: Following the intravenous administration of 12.17 mCi of F-18 FDG, whole body images are performed from the skull base to the midthigh. Images are reviewed on the computer in the coronal, a xial, and sagittal planes. Reconstructed rotating images are created on independent workstation and reviewed on the computer. A localization and attenuation correction CT is performed in conjunction with the PET scan. DLP: 418.34 mGycm SCAN: Subsequent Blood glucose: 100 mg/dL Average Mediastinum SUV: 1.55 Average Liver SUV: 2.11 FINDINGS: NECK: There are several punctate areas of increased radiotracer accumulation within left neck lymph nodes. Images 25-43. PET image 25 SUV value left side 2.14. Previous SUV 2.26 Image 30 SUV value of 2.58 left side neck. Previous SUV 2.18. Image 34 submandibular uptake 2.33 (Previous SUV 2.91) Image 34 lateral left neck uptake 2.55 (Previous 2.44) Image 34 Posterior uptake 2.83. Previous measurement 3 SUV. Image 39 submandibular uptake 2.46. Previous measurement 2.35. There is uptake within the left neck head image 46 SUV value 1.31. This is nonspecific early metastas is or inflammatory change could be considered. There is uptake within the left supraclavicular region with an SUV value of 2.18, PET image 53. Uptake is within the left supraclavicular lymph node. Image 59 SUV value 2.19. THORAX: Subtle axillary lymph node uptake is present within small lymph nodes which are in the inflam matory range. On the left image 75 measures 1.66 and on the right this measures 1.27. Lymph nodes are not enlarged. Additional right axillary lymphadenopathy with mild uptake measures 1.49, image 82. In flammatory changes and early metastatic disease could be considered. ABDOMEN: No abnormal uptake PELVIS: No abnormal uptake OSSEOUS STRUCTURES: There is a focus of radiotracer accumulation within an anterior left rib with an SUV value of 2.6. Image 122 suspicious for metastatic osseous lesion. LOCALIZATION CT: Lymphadenopathy through the neck is again evident. Rib abnormality at the area of up take within the anterior left is not identified. COMPARISON: Uptake within the anterior left rib appears to be new. Uptake scattered through the left neck appears similar. IMPRESSION: 1. Osseous uptake anterior left rib suspicious for metastatic lesion. 2. Multiple scattered areas of uptake within the left neck similar to prior study. 3. Scattered small lymph nodes such as the bilateral axillary regions are indeterminant although new from prior study.
== END | disposition home or self-care (01) ==
LOC: RADPETMAIN 10:00
PROVIDERS: ATTEND Internal Medicine Hematology & Oncology
DX: C34.32 Malignant neoplasm of lower lobe, left bronchus or lung (principal); Z92.21 Personal history of antineoplastic chemotherapy
CPT/HCPCS: 78815; A9552

== ENCOUNTER → 2020-02-24 | Outpatient (CLI) | payer MEDICARE, BC ==
--- NOTE | 2020-02-24 13:56 | NM ---
EXAMINATION TYPE: NM bone scan whole body DATE OF EXAM: 02/24/2020 COMPARISON: PET/CT 02/11/2020 HISTORY: Abnormal PET scan Delayed whole-body scanning was performed following the injection of 23.7 mCi Tc 99m MDP. Images acq uired 3 hours post injection. FINDINGS: Within the anterior left rib cage correspond to the PET CT abnormality is an intense area of abnormal uptake. Faint abnormal uptake involving the shoulders appears to be post arthritic. Similar findings involvin g the sternoclavicular joints. Faint uptake involving the lumbar spine likely degenerative. IMPRESSION: 1. Small focal area of abnormal uptake anterior left rib cage is concordant with the PET/CT finding a nd can be seen with metastases.
== END | disposition home or self-care (01) ==
LOC: RADNMMAIN 09:46
PROVIDERS: ATTEND Internal Medicine Hematology & Oncology
DX: Z03.89 Encounter for observation for other suspected diseases and conditions ruled out (principal); C34.32 Malignant neoplasm of lower lobe, left bronchus or lung; R93.7 Abnormal findings on diagnostic imaging of other parts of musculoskeletal system
CPT/HCPCS: 78306; A9503

== ENCOUNTER → 2020-05-12 | Outpatient (CLI) | payer MEDICARE, BC ==
--- NOTE | 2020-05-15 10:58 | PE ---
EXAMINATION TYPE: PET CT fusion skull to thigh DATE OF EXAM: 05/12/2020 COMPARISON: Prior PET/CT February 11, 2020 and older studies. HISTORY: Lung cancer progress study. Diagnosed December 2018, currently on chemotherapy. TECHNIQUE: Following the intravenous administration of 12.7 mCi of F-18 FDG, whole body images are p erformed from the skull base to the midthigh. Images are reviewed on the computer in the coronal, ax ial, and sagittal planes. Reconstructed rotating images are created on independent workstation and r eviewed on the computer. A noncontrast CT is performed in conjunction with the PET scan. SCAN: Subsequent Scan FINDINGS: SKULL BASE AND NECK: Stable in size prominent slightly hypermetabolic left-sided neck lymph nodes. F or reference a 1.3 x 0.8 cm lymph node axial image 34 has max SUV 3.22 on current study. Prominent po sterior cervical lymph nodes on axial image 26 has max SUV of 2.78. There are hypermetabolic lateral left tongue base submandibular lymph nodes axial image 33 through 36, max SUV 3.99. Hypermetabolic ly mph nodes level of thyroid gland axial image 58 has max SUV of 3.56. No new suspicious hypermetabolic lymph nodes. No enlarging lymph nodes. CHEST, MEDIASTINUM, AND HILAR REGION: No new areas of suspicious hypermetabolic uptake. No new concer yolanda masses. Mild uptake left axillary lymph node axial image 75 remains present, this lymph node raya sures 1.3 x 0.8 cm current study. SUV under 2.5. It is slightly more prominent versus the prior. ABDOMEN AND PELVIS: Normal excretion is seen. Lobulated contour to the bladder. No new areas of suspi cious hypermetabolic uptake. OSSEOUS STRUCTURES: No new areas of abnormal hypermetabolic uptake. Stable mild uptake at linear scle rotic area lower anterior left rib axial image 124 near costochondral junction. Max SUV 2.56. OTHER CT: Cardiomegaly with post-CABG changes redemonstrated. Moderate to severe calcified plaque lef t carotid bulb. Enlarged pulmonary arteries consistent with underlying pulmonary hypertension. Moderate calcified plaque aorta extends into branch vessels. Penile prosthetic pump is redemonstrated . Prostate surgically absent. Moderate-sized fat-containing left inguinal hernia redemonstrated. Mult ilevel spurring in the spine. IMPRESSION: Slightly more prominent increased max SUV of the known left-sided neck adenopathy. No sig nificant interval increase in size. No new adenopathy is evident. Stable anterior left lower rib lesi on. No new suspicious osseous lesions.
== END | disposition home or self-care (01) ==
LOC: RADPETMAIN 08:05
PROVIDERS: ATTEND Internal Medicine Hematology & Oncology
DX: R59.9 Enlarged lymph nodes, unspecified (principal); M89.8X8 Other specified disorders of bone, other site; C34.32 Malignant neoplasm of lower lobe, left bronchus or lung
CPT/HCPCS: 78815; A9552

== ENCOUNTER → 2020-08-04 | Outpatient (CLI) | payer MEDICARE, BC ==
--- NOTE | 2020-08-07 13:53 | PE ---
Nuclear medicine PET/CT HISTORY: Left lung cancer, subsequent Patient received 11.2 mCi F-18 FDG intravenously in delayed scanning was performed from the skull bas e to the mid thighs. Localization and attenuation correction CT scan was performed. Correlation to nuclear medicine PET/CT 05/12/2020 Chest and neck: Multiple nodes are again noted along anterior cervical chain on the left as on prior exam with some mild uptake. Supraclavicular nodes are also again noted on the left with associated up take. Superior mediastinal node shows some mild uptake but is not enlarged. There is no pleural or pe ricardial effusion. No evident lung mass. Left axillary node no longer shows uptake as on prior. Aort icopulmonary nodes appears somewhat more confluent but are without significant uptake. Pulmonary artery appears prominently, consider pulmonary artery hypertension. Patient is post median sternotomy. There are dense coronary artery calcifications, heart is enlarged. ABDOMEN: No pelvic or retroperitoneal adenopathy. Atheromatous changes are present within the aorta i liac distribution. No definite liver mass. Focal low attenuation area in the right lobe of the liver is again seen and shows a stable appearance and likely represents cyst. No adrenal mass. Uptake withi n the bowel is likely physiologic. IMPRESSION: There are interval lung changes as described. Low dense cystic focus within the right lob e of the liver has increased in size now measuring 6.2 cm as compared to previous exam when it measur ed approximately 3.6 cm.
== END | disposition home or self-care (01) ==
LOC: RADPETMAIN 07:18
PROVIDERS: ATTEND Internal Medicine Hematology & Oncology
DX: I25.10 Atherosclerotic heart disease of native coronary artery without angina pectoris (principal); C34.32 Malignant neoplasm of lower lobe, left bronchus or lung
CPT/HCPCS: 78815; A9552

== ENCOUNTER → 2020-09-12 | Outpatient (CLI) | payer MEDICARE, BC ==
--- NOTE | 2020-09-12 10:20 | XR ---
EXAMINATION TYPE: XR chest 2V DATE OF EXAM: 09/12/2020 COMPARISON: 03/30/2019 INDICATION: Lung cancer short of breath TECHNIQUE: Single frontal view of the chest is obtained. FINDINGS: The heart size is normal. The pulmonary vasculature is normal. No discrete masses are evident. No focal consolidations are evident. Minimal plate atelectasis may be at the left costophrenic angle. There is some mild hyperinflation suggestive for COPD. Sternotomy wi res are present. IMPRESSION: 1. COPD. 2. Minimal plate atelectasis left costophrenic angle
== END ==
LOC: RADXRMAIN 08:50
PROVIDERS: ATTEND Internal Medicine Hematology & Oncology
DX: C34.90 Malignant neoplasm of unspecified part of unspecified bronchus or lung (principal); J44.9 Chronic obstructive pulmonary disease, unspecified; J98.11 Atelectasis
CPT/HCPCS: 71046

== ENCOUNTER 2020-09-27 15:57 | Emergency (ER) | payer MEDICARE, BC ==
[2020-09-27 16:20] VITALS: TEMP 97.5
[2020-09-27 17:07] VITALS: RESP 16
[2020-09-27 17:10] LABS: Anisocytosis Slight; Basophils # (A) 0.1 k/uL (0-0.2); Basophils % (A) 1 %; Eosinophils # (A) 0.1 k/uL (0-0.7); Eosinophils % (A) 1 %; HCT 39.2 % (39.0-53.0); HGB 12.8 gm/dL (13.0-17.5); Lymphocytes # (A) 0.8 k/uL (1.0-4.8); Lymphocytes % (A) 8 %; MCH 28.2 pg (25.0-35.0); MCHC 32.6 g/dL (31.0-37.0); MCV 86.2 fL (80.0-100.0); Mean Platelet Volume 7.3; Monocytes # (A) 0.9 k/uL (0-1.0); Monocytes % (A) 9 %; Neutrophils # (A) 7.8 k/uL (1.3-7.7); Neutrophils % (A) 79 %; Platelet Count 238 k/uL (150-450); RBC 4.55 m/uL (4.30-5.90); RDW 18.5 % (11.5-15.5); WBC 9.9 k/uL (3.8-10.6)
[2020-09-27 17:22] LABS: Albumin 3.6 g/dL (3.5-5.0); Calcium 9.2 mg/dL (8.4-10.2); INR 2.9 (<1.2); Partial Thromboplastin Time 32.6 sec (22.0-30.0); Potassium 4.9 mmol/L (3.5-5.1); Prothrombin Time 28.1 sec (9.0-12.0); Total Bilirubin 0.7 mg/dL (0.2-1.3); Total Protein 6.5 g/dL (6.3-8.2)
--- NOTE | 2020-09-27 17:48 | ED ---
General Adult HPI - General Chief complaint: Altered Mental Status Stated complaint: Reaction to vaccine Time Seen by Provider: 09/27/20 16:31 Source: patient, RN notes reviewed, old records reviewed Mode of arrival: ambulatory Limitations: no limitations - History of Present Illness Initial comments: 85-year-old male with history of metastatic lung cancer presenting for evaluation of worsening dyspnea, and confusion. Patient was scheduled for an outpatient computed tomography scan of the chest later this week. He was instructed by the oncologist to present to the emergency department if symptoms didn't worsen. His is able to give a detailed history stating that he's been somewhat confused since the end of August as well as had worsening cough and dyspnea. He did receive a code vaccine as well as chemotherapy in the last week of August. No reported fever. No reported vomiting. Patient denies pain complaints. Patient alert and oriented at the time my evaluation. Apparently the confusion is associated with a low oxygen level at home. This is intermittent and does seem to resolve without supplemental oxygen. Patient is o n Coumadin. - Related Data Home Medications Medication Instructions Recorded Confirmed Nitroglycerin Sl Tabs [Nitrostat] 0.4 mg SUBLINGUAL Q5M PRN 04/08/14 01/22/19 Omeprazole [PriLOSEC] 20 mg PO HS 04/08/14 01/22/19 Warfarin [Coumadin] 5 mg PO W/SUPPER 04/08/14 01/21/19 amLODIPine [Norvasc] 10 mg PO HS 10/17/18 01/22/19 Ergocalciferol (Vitamin D2) 50,000 unit PO [id number] 12/22/18 01/22/19 [Vitamin D2] Vitamin B Complex 1 each PO DAILY 12/22/18 01/22/19 Previous Rx's Medication Instructions Recorded Albuterol Inhaler [Ventolin Hfa 2 puff INHALATION RT-QID #1 unit 09/27/20 Inhaler] predniSONE 50 mg PO DAILY #5 tab 09/27/20 Allergies Allergy/AdvReac Type Severity Reaction Status Date / Time No Known Allergies Allergy Verified 01/22/19 12:30 Review of Systems ROS Statement: Those systems with pertinent positive or pertinent negative responses have been documented in the HPI. ROS Other: All systems not noted in ROS Statement are negative. Past Medical History Past Medical History: Atrial Flutter, Coronary Artery Disease (CAD), Cancer, Chest Pain / Angina, GERD/Reflux, Hearing Disorder / Deafness, Hyperlipidemia, Hypertension, Myocardial Infarction ([place]), Prostate Disorder, Renal Disease Additional Past Medical History / Comment(s): newly dx of CA left neck with lymph node involvement,hx prostate cancer, bilateral legs are beginning to get numb from knees down and right hand as well. IRON DEFICIENCY ANEMIA. stage four lung cancer/neck, 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, Past Anesthesia/Blood Transfusion Reactions: No Reported Reaction Additional Past Anesthesia/Blood Transfusion Reaction / Comment(s): no known hx blood transfusions or complications Past Psychological History: No Psychological Hx Reported Smoking Status: Former smoker Past Alcohol Use History: None Reported, Rare Past Drug Use History: None Reported - Past Family History Father Family Medical History: Cancer General Exam Limitations: no limitations General appearance: alert, in no apparent distress Head exam: Present: atraumatic, normocephalic Eye exam: Present: normal appearance, PERRL ENT exam: Present: mucous membranes dry Neck exam: Present: lymphadenopathy. Absent: tenderness, meningismus Respiratory exam: Present: rales, decreased breath sounds. Absent: respiratory distress, wheezes Cardiovascular Exam: Present: regular rate, normal rhythm GI/Abdominal exam: Present: soft. Absent: distended, tenderness, guarding, rebound Extremities exam: Present: normal inspection, normal capillary refill. Absent: pedal edema Neurological exam: Present: alert. Absent: motor sensory deficit Psychiatric exam: Present: normal affect, normal mood Skin exam: Present: warm, dry, intact. Absent: cyanosis, diaphoretic Course Vital Signs 09/27/20 09/27/20 09/27/20 16:12 16:25 17:06 Temperature 97.5 F L Pulse Rate 46 L 63 Respiratory 18 16 Rate Blood Pressure 130/60 136/79 O2 Sat by Pulse 91 L 99 96 Oximetry 09/27/20 18:19 Temperature Pulse Rate 63 Respiratory 16 Rate Blood Pressure 164/86 O2 Sat by Pulse 100 Oximetry EKG Findings - EKG Comments: EKG Findings:: EKG: Sinus rhythm with first-degree AV block, left axis deviation, intraventricular conduction delay, QRS of 122, ventricular rate 65, MD interval 232, QTC 453, no ST segment elevation. Medical Decision Making - Medical Decision Making 85-year-old male with dyspnea, and associated hypoxia and confusion. Patient well-appearing with stable vitals, normal oxygenation on room air. He does have some crackles in bilateral lungs. He was scheduled for an outpatient CT later this week and did discuss case with Dr. Smallwood who is his oncologist and he did recommend CT chest and pelvis this is performed in addition to head CT and CT negative for intracranial hemorrhage or mass effect. CT of the chest showing some animal bilateral effusions, no large focal pneumonia, no pneumothorax. There is some lymphadenopathy which is unchanged. Unremarkable abdomen. Patient has normal white blood cell count which is 7.8 neutrophils. Stable hemoglobin. He does have therapeutic INR. He has hyponatremia 126. Normal electrolytes. Patient will be prescribed albuterol, and short course of steroids. I suspect that this is predominantly limited to reactive airway disease, COPD. - Lab Data Result diagrams: 09/27/20 17:06 09/27/20 17:03 Lab Results 09/27/20 09/27/20 09/27/20 Range/Units 17:03 17:03 17:06 WBC 9.9 (3.8-10.6) k/uL RBC 4.55 (4.30-5.90) m/uL Hgb 12.8 L (13.0-17.5) gm/dL Hct 39.2 (39.0-53.0) % MCV 86.2 (80.0-100.0) fL MCH 28.2 (25.0-35.0) pg MCHC 32.6 (31.0-37.0) g/dL RDW 18.5 H (11.5-15.5) % Plt Count 238 (150-450) k/uL MPV 7.3 Neutrophils % 79 % Lymphocytes % 8 % Monocytes % 9 % Eosinophils % 1 % Basophils % 1 % Neutrophils # 7.8 H (1.3-7.7) k/uL Lymphocytes # 0.8 L (1.0-4.8) k/uL Monocytes # 0.9 (0-1.0) k/uL Eosinophils # 0.1 (0-0.7) k/uL Basophils # 0.1 (0-0.2) k/uL Anisocytosis Slight PT 28.1 H (9.0-12.0) sec INR 2.9 H (<1.2) APTT 32.6 H (22.0-30.0) sec Sodium 126 L (137-145) mmol/L Potassium 4.9 (3.5-5.1) mmol/L Chloride 91 L (98-107) mmol/L Carbon Dioxide 28 (22-30) mmol/L Anion Gap 7 mmol/L BUN 37 H (9-20) mg/dL Creatinine 1.10 (0.66-1.25) mg/dL Est GFR (CKD-EPI)AfAm 71 (>60 ml/min/1.73 sqM) Est GFR (CKD-EPI)NonAf 61 (>60 ml/min/1.73 sqM) Glucose 112 H (74-99) mg/dL Calcium 9.2 (8.4-10.2) mg/dL Total Bilirubin 0.7 (0.2-1.3) mg/dL AST 41 (17-59) U/L ALT 28 (4-49) U/L Alkaline Phosphatase 115 (38-126) U/L Total Protein 6.5 (6.3-8.2) g/dL Albumin 3.6 (3.5-5.0) g/dL Disposition Clinical Impression: COPD (chronic obstructive pulmonary disease) Disposition: HOME SELF-CARE Condition: Fair Instructions (If sedation given, give patient instructions): COPD (Chronic Obst ructive Pulmonary Disease) (ED) Prescriptions: predniSONE 50 mg PO DAILY #5 tab Albuterol Inhaler [Ventolin Hfa Inhaler] 2 puff INHALATION RT-QID #1 unit Is patient prescribed a controlled substance at d/c from ED?: No Referrals: Nandini Ruiz MD [Primary Care Provider] - 1-2 days Rock Smallwood MD [STAFF PHYSICIAN] - 1-2 days Jeff Banks DO [Doctor of Osteopathic Medicine] - 1-2 days Time of Disposition: 19:05
--- NOTE | 2020-09-27 18:29 | CT ---
EXAMINATION TYPE: CT brain wo con DATE OF EXAM: 09/27/2020 COMPARISON: None HISTORY: Dyspnea, metastatic lung ca, symptoms several days after receiving vaccine. CT DLP: 1172.4 mGycm Automated exposure control for dose reduction was used. Ventricles have fairly normal size. There is no mass effect nor midline shift. There is no sign of in tracranial hemorrhage. There is cerebral atrophy appropriate for age. There is no evidence of intracr anial hemorrhage. Calvarium is intact. IMPRESSION: Cerebral atrophy. No acute intracranial abnormality.
--- NOTE | 2020-09-27 18:41 | CT ---
EXAMINATION TYPE: CT ChestAbdPelvis wo con DATE OF EXAM: 09/27/2020 COMPARISON: 08/04/2020 HISTORY: Dyspnea, metastatic lung ca, symptoms several days after receiving vaccine. CT DLP: 825.5 mGycm Automated exposure control for dose reduction was used. Images obtained from the thoracic inlet to the floor the pelvis with no contrast. There is some pulmonary emphysema. There is mild right pleural effusion. There is some mild atelectas is right posterior lung base. There is no pericardial effusion. Heart appears enlarged. There are no hilar masses. There is coronary artery calcification. There is a few mediastinal peritracheal lymph n odes that measure up to 15 mm. There is no aortic aneurysm. Liver and spleen are intact. The bile ducts are not dilated. Stomach is intact. There is no pancreati c mass. There are small calcifications in the dependent gallbladder. There is 1.5 cm hypodense focus inferior right lobe of the liver. Unchanged. There is no adrenal mass. Kidneys have normal size. There is no hydronephrosis. Ureters are not dilat ed. Abdominal aorta is atheromatous. Bladder distends smoothly. There is no inguinal hernia. There is moderate vascular calcification. There is surgical clips from prostate surgery. There is no evidence of a pelvic mass. There is previous penile surgery prosthesis. There is no ascites. There is no free air. There is no mesenteric edema. There is multilevel lumbar a nd thoracic spondylotic changes. There is no compression fracture. There are sternal wires. The bony pelvis is intact. Hip joints are intact. IMPRESSION: Mediastinal enlarged lymph nodes unchanged. Cardiomegaly unchanged. There is small right pleural effu mamie increased compared to old exam. Very small left pleural effusion unchanged. No pulmonary consoli dation.
[2020-09-27 19:06] VITALS: BP 172/73; PULSE 62
== END 2020-09-27 19:26 | disposition home or self-care (01) ==
LOC: EC 15:57
DX: J44.9 Chronic obstructive pulmonary disease, unspecified (principal); I10 Essential (primary) hypertension; I25.10 Atherosclerotic heart disease of native coronary artery without angina pectoris; I25.2 Old myocardial infarction; E78.5 Hyperlipidemia, unspecified; K21.9 Gastro-esophageal reflux disease without esophagitis; Z23 Encounter for immunization; Z79.52 Long term (current) use of systemic steroids; Z79.899 Other long term (current) drug therapy; Z85.118 Personal history of other malignant neoplasm of bronchus and lung; Z85.46 Personal history of malignant neoplasm of prostate; Z87.891 Personal history of nicotine dependence
CPT/HCPCS: 36415; 70450; 71250; 74176; 80053; 85025; 85610; 85730; 93005; 99284

== ENCOUNTER → 2020-09-29 | Outpatient (CLI) | payer MEDICARE, BC ==
--- NOTE | 2020-10-01 14:07 | CT ---
EXAMINATION TYPE: CT soft tissue neck w con DATE OF EXAM: 09/29/2020 COMPARISON: 08/19/2016 CT neck, 09/27/2020 CT chest abdomen pelvis HISTORY: Lung cancer with mets to left side of neck. CT DLP: 654 mGycm CONTRAST: Patient injected with 100 mL of Isovue M300. TECHNIQUE: Axial images at 3 mm thick sections. Reconstructed images in the coronal plane and sagitt al plane are reviewed. FINDINGS: Limited CT sections are obtained the lung apices. Some very minimal bilateral pleural effu sions may extend into the [id number]. Mediastinal adenopathy in the aortopulmonic window is presen t. There is extensive adenopathy present including bilateral supraclavicular adenopathy. Enlarged submen erica lymph nodes are present bilaterally. Extensive shoddy lymphadenopathy is present through the post erior triangles greater on the left and within the left neck. There may be an enlarged lymph node in the anterior right parotid gland with a transverse dimension of 1.0 cm which is enlarged. CT neck: The torus tubarius and fossa of Rosenmuller are normal. [employer] spaces are normal. Para nasal sinuses and mastoid air cells are clear. Parotid glands appear normal and symmetrical. Submandibular glands, are normal. Parapharyngeal spac es are normal. The hypopharynx appears within normal limits. Vocal cord level appear symmetrical. Thyroid as visualized is normal. Osseous structures are normal. COMPARISON:This is compared with 08/19/2016 CT neck and 09/27/2020 CT chest abdomen and pelvis. Adenopat hy appears to be increasing in size and number from the CT chest abdomen pelvis. Findings or interval development from 2017. Additional history obtained is that of recent COVID vaccination. Adenopathy i s a known side effect of the vaccination and this as an etiology for the increasing size and number o f lymph nodes should also be considered within the differential. IMPRESSIONS: 1. Extensive adenopathy present including enlarged lymph nodes within the left parotid gland, subment al space bilaterally, and supraclavicular regions and aortopulmonic window. Additional shotty lymphad enopathy is present within the neck greater on the left. Differential diagnosis should include relati on to recent COVID vaccination as well as possible metastatic disease.
== END ==
LOC: RADCTMAIN 10:02
PROVIDERS: ATTEND Internal Medicine Hematology & Oncology
DX: C34.32 Malignant neoplasm of lower lobe, left bronchus or lung (principal); R59.1 Generalized enlarged lymph nodes; R59.9 Enlarged lymph nodes, unspecified
CPT/HCPCS: 70491; Q9967

== ENCOUNTER 2020-12-15 00:43 | Inpatient (IN) | payer MEDICARE, BC ==
--- NOTE | 2020-12-15 02:47 | XR ---
EXAM: XR Chest, 2 Views CLINICAL HISTORY: difficulty breathing TECHNIQUE: Frontal and lateral views of the chest. COMPARISON: 09/12/20 FINDINGS: Lungs: Bilateral interstitial prominence. Pleural space: Small bilateral pleural effusions. No pneumothorax. Heart: Mildly enlarged cardiomediastinal silhouette. Mediastinum: See above. Bones/joints: Sternotomy wires. Tubes, lines and devices: Telemetry leads overlie the patient. IMPRESSION: 1. Nonspecific bilateral interstitial prominence may be related to mild interstitial edema. 2. Small bilateral pleural effusions. No pneumothorax.
[2020-12-15 03:00] LABS: Anisocytosis Slight; Basophils # (A) 0.1 k/uL (0-0.2); Basophils % (A) 1 %; Eosinophils # (A) 0.2 k/uL (0-0.7); Eosinophils % (A) 2 %; HCT 41.8 % (39.0-53.0); Lymphocytes # (A) 0.8 k/uL (1.0-4.8); Lymphocytes % (A) 8 %; MCH 26.9 pg (25.0-35.0); MCHC 33.5 g/dL (31.0-37.0); MCV 80.1 fL (80.0-100.0); Mean Platelet Volume 9.8; Monocytes % (A) 12 %; Neutrophils # (A) 6.7 k/uL (1.3-7.7); Neutrophils % (A) 75 %; Platelet Count 189 k/uL (150-450); RBC 5.22 m/uL (4.30-5.90); RDW 16.5 % (11.5-15.5); WBC 8.9 k/uL (3.8-10.6)
[2020-12-15] MEDS ORDERED: FUROSEMIDE 10 MG/ML 4 ML VIAL IV STA (03:00)
[2020-12-15 03:07] LABS: Partial Thromboplastin Time 30.8 sec (22.0-30.0)
--- NOTE | 2020-12-15 03:16 | ED ---
General Adult HPI - General Chief complaint: Shortness of Breath Stated complaint: CINDY, Fluid Retention Time Seen by Provider: 12/15/20 01:08 Source: patient Mode of arrival: ambulatory - History of Present Illness Initial comments: 85 year-old male patient presents to the emergency department for evaluation of increased swelling to the lower body and increased shortness of breath. Reports 10 pound weight gain over the last week. Patient does have history of lung cancer, has been on chemo for the last two years. reports he has also had congestive heart failure in the past. States that over the last couple of days he has noticed increased swelling to the lower extremities, the scrotum, and his abdomen. States he is also had increased shortness of breath especially with lying down. Reports dry intermittent cough. Denies any fever or chills. [place], states that he had four falls during the trip which is unusual for him. Patient denies any recent rash, chest pain, abdominal pain, nausea, vomiting, diarrhea, constipation, back pain, numbness, tingling, dizziness, weakness, hematuria, dysuria, urinary urgency, urinary frequency, hea dache, visual changes, or any other complaints. - Related Data Home Medications Medication Instructions Recorded Confirmed Nitroglycerin Sl Tabs [Nitrostat] 0.4 mg SUBLINGUAL Q5M PRN 04/08/14 01/22/19 Omeprazole [PriLOSEC] 20 mg PO HS 04/08/14 01/22/19 Warfarin [Coumadin] 5 mg PO W/SUPPER 04/08/14 01/21/19 amLODIPine [Norvasc] 10 mg PO HS 10/17/18 01/22/19 Ergocalciferol (Vitamin D2) 50,000 unit PO [id number] 12/22/18 01/22/19 [Vitamin D2] Vitamin B Complex 1 each PO DAILY 12/22/18 01/22/19 Previous Rx's Medication Instructions Recorded Albuterol Inhaler [Ventolin Hfa 2 puff INHALATION RT-QID #1 unit 09/27/20 Inhaler] predniSONE 50 mg PO DAILY #5 tab 09/27/20 Allergies Allergy/AdvReac Type Severity Reaction Status Date / Time No Known Allergies Allergy Verified 01/22/19 12:30 Review of Systems ROS Statement: Those systems with pertinent positive or pertinent negative responses have been documented in the HPI. ROS Other: All systems not noted in ROS Statement are negative. Past Medical History Past Medical History: Atrial Flutter, Coronary Artery Disease (CAD), Cancer, Chest Pain / Angina, GERD/Reflux, Hearing Disorder / Deafness, Hyperlipidemia, H ypertension, Myocardial Infarction ([place]), Prostate Disorder, Renal Disease Additional Past Medical History / Comment(s): newly dx of CA left neck with lymph node involvement,hx prostate cancer, bilateral legs are beginning to get numb from knees down and right hand as well. IRON DEFICIENCY ANEMIA. stage four lung cancer/neck, 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, Past Anesthesia/Blood Transfusion Reactions: No Reported Reaction Additional Past Anesthesia/Blood Transfusion Reaction / Comment(s): no known hx blood transfusions or complications Past Psychological History: No Psychological Hx Reported Smoking Status: Former smoker Past Alcohol Use History: None Reported, Rare Past Drug Use History: None Reported - Past Family History Father Family Medical History: Cancer General Exam General appearance: alert, in no apparent distress, other (This is a well- developed, well-nourished adult male patient in no acute distress. Vital signs upon presentation temperature 97.4F, pulse 67, respirations 22, blood pressure 159/74, pulse ox 96% on room air.) Eye exam: Present: normal appearance, PERRL, EOMI. Absent: scleral icterus, conjunctival injection, periorbital swelling ENT exam: Present: normal exam, normal oropharynx, mucous membranes moist Respiratory exam: Present: rales (Bilateral bases posteriorly). Absent: normal lung sounds bilaterally, respiratory distress, wheezes, rhonchi, stridor Cardiovascular Exam: Present: regular rate, normal rhythm, normal heart sounds. Absent: systolic murmur, diastolic murmur, rubs, gallop, clicks GI/Abdominal exam: Present: soft, normal bowel sounds. Absent: distended, tenderness, guarding, rebound, rigid exam: Present: scrotal swelling Extremities exam: Present: full ROM, normal capillary refill, other (3+ pitting edema noted to the bilateral lower extremities). Absent: tenderness, pedal edema, joint swelling, calf tenderness Neurological exam: Present: alert, oriented X3, CN II-XII intact Psychiatric exam: Present: normal affect, normal mood Skin exam: Present: warm, dry, intact, normal color. Absent: rash Course Vital Signs 12/15/20 12/15/20 12/15/20 00:45 02:00 03:36 Temperature 97.4 F L 97.8 F Pulse Rate 67 64 61 Respiratory 22 20 20 Rate Blood Pressure 159/74 153/83 O2 Sat by Pulse 96 98 97 Oximetry EKG Findings - EKG Comments: EKG Findings:: EKG obtained at shows sinus rhythm with first-degree AV block with PACs. Ventricular rate 63, CT interval 228, QRS duration 128, QT 440, QTC 450. No evidence of ST elevation or depression. Medical Decision Making - Medical Decision Making 85-year-old male patient presented to the emergency department today for evaluation of edema to the lower extremities and scrotum. Also reports shortness of breath. Patient reports 10 pound weight gain over the last week. Physical examination did reveal crackles at the bases. 3+ pitting edema to the lower extremities. Labs reviewed and did reveal a BNP at 22,500. Trop 0.037. Chest x-ray did show pulmonary edema and bilateral pleural effusions. Patient will be given IV Lasix and aspirin. He does take coumadin, INR is 2.0. He'll be admitted to the hospital for consults to cardiology. Echo will be obtained. Patient and are agreeable to this plan. Case discussed with Dr. Jose. - Lab Data Result diagrams: 12/15/20 01:55 Lab Results 12/15/20 12/15/20 12/15/20 Range/Units 01:55 01:55 01:55 WBC 8.9 (3.8-10.6) k/uL RBC 5.22 (4.30-5.90) m/uL Hgb 14.0 (13.0-17.5) gm/dL Hct 41.8 (39.0-53.0) % MCV 80.1 (80.0-100.0) fL MCH 26.9 (25.0-35.0) pg MCHC 33.5 (31.0-37.0) g/dL RDW 16.5 H (11.5-15.5) % Plt Count 189 (150-450) k/uL MPV 9.8 Neutrophils % 75 % Lymphocytes % 8 % Monocytes % 12 % Eosinophils % 2 % Basophils % 1 % Neutrophils # 6.7 (1.3-7.7) k/uL Lymphocytes # 0.8 L (1.0-4.8) k/uL Monocytes # 1.0 (0-1.0) k/uL Eosinophils # 0.2 (0-0.7) k/uL Basophils # 0.1 (0-0.2) k/uL Anisocytosis Slight PT 20.0 H (9.0-12.0) sec INR 2.0 H (<1.2) APTT 30.8 H (22.0-30.0) sec Troponin I 0.037 H* (0.000-0.034) ng/mL NT-Pro-B Natriuret Pep pg/mL 12/15/20 Range/Units 01:55 WBC (3.8-10.6) k/uL RBC (4.30-5.90) m/uL Hgb (13.0-17.5) gm/dL Hct (39.0-53.0) % MCV (80.0-100.0) fL MCH (25.0-35.0) pg MCHC (31.0-37.0) g/dL RDW (11.5-15.5) % Plt Count (150-450) k/uL MPV Neutrophils % % Lymphocytes % % Monocytes % % Eosinophils % % Basophils % % Neutrophils # (1.3-7.7) k/uL Lymphocytes # (1.0-4.8) k/uL Monocytes # (0-1.0) k/uL Eosinophils # (0-0.7) k/uL Basophils # (0-0.2) k/uL Anisocytosis PT (9.0-12.0) sec INR (<1.2) APTT (22.0-30.0) sec Troponin I (0.000-0.034) ng/mL NT-Pro-B Natriuret Pep 04599 pg/mL - Radiology Data Radiology results: report reviewed, image reviewed Chest x-ray is obtained. Report is reviewed in its entirety. Impression by Dr. Molina shows nonspecific bilateral interstitial prominence may be related to mild interstitial edema. Small bilateral pleural effusions. No pneumothorax. Disposition Clinical Impression: CHF (congestive heart failure) Disposition: ADMITTED IP TO THIS [facility] Condition: Serious Referrals: Nandini Ruiz MD [Primary Care Provider] - 1-2 days Decision to Admit Reason: Admit from EC Decision Date: 12/15/20 Decision Time: 03:16
[2020-12-15] MEDS ORDERED: ASPIRIN 81 MG PO STA (03:46)
[2020-12-15 03:53] LABS: Albumin 3.4 g/dL (3.5-5.0); Calcium 8.7 mg/dL (8.4-10.2); Total Bilirubin 0.7 mg/dL (0.2-1.3); Total Protein 6.3 g/dL (6.3-8.2)
[2020-12-15 03:54] LABS: Magnesium 1.9 mg/dL (1.6-2.3); Potassium 5.3 mmol/L (3.5-5.1)
--- NOTE | 2020-12-15 04:40 | P.HPIM ---
History of Present Illness H&P Date: 12/15/20 Chief Complaint: Trouble breathing, leg edema 85-year-old male with stage IV lung cancer, coronary artery disease, a flutter status post ablation Patient comes in due to progressive shortness of breath, and leg edema bilaterally over the past couple weeks mainly over the past week symptoms get worse patient starts experiencing orthopnea can't lay flat along with worsening edema of bilateral legs. He does have history of CHF and coronary artery disease. However he is not on Lasix at home Patient also noticed increased confusion patient has been falling recently, he has had his head multiple times patient claims that these falls are due to tripping over with loose rugs he denies any associated chest pain trouble breathing or palpitations or dizziness, he has not seek medical attention for these falls, patient walks around the house without using any assistive device Patient has advanced lung cancer last time he received chemotherapy was back in August however he did not tolerate he's been discussing with his oncologist possible measures like palliative care Otherwise he denies any GI bleeding denies any melena, he denies any fevers or chills he denies any abdominal pain nausea or vomiting In the ED workup showed bilateral pleural effusion blood work showed hyponatremia and elevated proBNP Review of Systems Pertinent positives as noted in HPI. All other systems were reviewed and are negative Past Medical History Past Medical History: Atrial Flutter, Coronary Artery Disease (CAD), Cancer, Chest Pain / Angina, GERD/Reflux, Hearing Disorder / Deafness, Hyperlipidemia, Hypertension, Myocardial Infarction ([place]), Prostate Disorder, Renal Disease Additional Past Medical History / Comment(s): newly dx of CA left neck with lymph node involvement,hx prostate cancer, bilateral legs are beginning to get numb from knees down and right hand as well. IRON DEFICIENCY ANEMIA. stage four lung cancer/neck, 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, Past Anesthesia/Blood Transfusion Reactions: No Reported Reaction Additional Past Anesthesia/Blood Transfusion Reaction / Comment(s): no known hx blood transfusions or complications Past Psychological History: No Psychological Hx Reported Smoking Status: Former smoker Past Alcohol Use History: None Reported, Rare Past Drug Use History: None Reported - Past Family History Father Family Medical History: Cancer Medications and Allergies Home Medications Medication Instructions Recorded Confirmed Type Nitroglycerin Sl Tabs [Nitrostat] 0.4 mg SUBLINGUAL Q5M PRN 04/08/14 01/22/19 History Omeprazole [PriLOSEC] 20 mg PO HS 04/08/14 01/22/19 History Warfarin [Coumadin] 5 mg PO W/SUPPER 04/08/14 01/21/19 History amLODIPine [Norvasc] 10 mg PO HS 10/17/18 01/22/19 History Ergocalciferol (Vitamin D2) 50,000 unit PO [id number] 12/22/18 01/22/19 History [Vitamin D2] Vitamin B Complex 1 each PO DAILY 12/22/18 01/22/19 History Albuterol Inhaler [Ventolin Hfa 2 puff INHALATION RT-QID #1 unit 09/27/20 Rx Inhaler] predniSONE 50 mg PO DAILY #5 tab 09/27/20 Rx Allergies Allergy/AdvReac Type Severity Reaction Status Date / Time No Known Allergies Allergy Verified 01/22/19 12:30 Physical Exam Vitals: Vital Signs Temp Pulse Resp BP Pulse Ox 12/15/20 03:36 97.8 F 61 20 153/83 97 12/15/20 02:00 64 20 98 12/15/20 00:45 97.4 F L 67 22 159/74 96 Intake and Output 12/14/20 12/14/20 12/15/20 14:59 22:59 06:59 Other: Weight 81.193 kg Constitutional: No acute distress, conversant, pleasant Eyes: Anicteric sclerae, moist conjunctiva, Left pupil slightly smaller than the right pupil both reactive to light ENMT: NC/there is signs of trauma to the head with multiple bruising, there is bruising around the left eye, patient has ptosis of the left eye Oropharynx clear, no erythema, or exudates Neck: Supple, FROM, no masses, or JVD No carotid bruits No thyromegaly Lungs: decreased breath sounds at lung basis bilaterally Clear to percussion Normal respiratory effort, no accessory muscle use Cardiovascular: Heart regular in rate and rhythm, , frequent extra beats No murmurs, gallops, or rubs Bilateral +2 peripheral pitting edema Abdominal: Soft Nontender, no guarding, rebound or rigidity Abdomen moving with respiration Normoactive bowel sounds No hepatomegaly, No splenomegaly No palpable mass No abdominal wall hernia noted Scrotal edema Skin: Normal temperature, tone, texture, turgor No induration No subcutaneous nodules Extremities: No digital cyanosis No clubbing Pedal pulses weak and symmetrical Radial pulses intact and symmetrical No calf tenderness Psychiatric: Alert and oriented to person, place Flat affect Neuro Muscles Strength 4/5 in all 4 extremities Sensation to light touch grossly present throughout Cranial nerves II-XII grossly intact No focal sensory deficits Lymphatics: no palpable cervical or supraclavicular , or inguinal lymph nodes Results CBC & Chem 7: 12/15/20 01:55 12/15/20 03:33 Labs: Abnormal Lab Results - Last 24 Hours (Table) 12/15/20 12/15/20 12/15/20 Range/Units 01:55 01:55 01:55 RDW 16.5 H (11.5-15.5) % Lymphocytes # 0.8 L (1.0-4.8) k/uL PT 20.0 H (9.0-12.0) sec INR 2.0 H (<1.2) APTT 30.8 H (22.0-30.0) sec Sodium (137-145) mmol/L Potassium (3.5-5.1) mmol/L Chloride (98-107) mmol/L BUN (9-20) mg/dL Glucose (74-99) mg/dL Alkaline Phosphatase (38-126) U/L Troponin I 0.037 H* (0.000-0.034) ng/mL Albumin (3.5-5.0) g/dL 12/15/20 Range/Units 03:33 RDW (11.5-15.5) % Lymphocytes # (1.0-4.8) k/uL PT (9.0-12.0) sec INR (<1.2) APTT (22.0-30.0) sec Sodium 125 L (137-145) mmol/L Potassium 5.3 H (3.5-5.1) mmol/L Chloride 96 L (98-107) mmol/L BUN 26 H (9-20) mg/dL Glucose 106 H (74-99) mg/dL Alkaline Phosphatase 139 H (38-126) U/L Troponin I (0.000-0.034) ng/mL Albumin 3.4 L (3.5-5.0) g/dL Assessment and Plan Assessment: Acute CHF exacerbation IV diuresis Check echocardiogram Resume cardiac meds Cardiology eval Cardiac monitoring Frequent falling at home with head trauma CT of the brain without contrast rule out any bleed patient is on warfarin with INR of 2 Fall precautions PT eval Stage IV lung cancer unknown sites of metastasis 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 Deferred to outpatient follow-up with oncology Patient is entertaining the possibility of palliative care Breathing treatments as needed Hyponatremia suspected to be multifactorial from CHF exacerbation and possible underlying SIADH Continue to monitor levels of sodium with IV diuresis Consider nephrology consult History of a flutter status post ablation currently on Coumadin INR is therapeutic at 2 Continue with Coumadin dosing by pharmacy History of CAD Continue with cardiac meds CODE STATUS full code DVT prophylaxis: On Coumadin Discussed with: Patient, ER, RN Anticipated length of stay more than [address]: Pending clinical course A total of 75 minutes was spent on the care of this complex patient more than 50% of the time was spent in counseling and care coordination.
--- NOTE | 2020-12-15 05:26 | CT ---
EXAM: CT Head Without Intravenous Contrast CLINICAL HISTORY: head injury; confusion TECHNIQUE: Axial computed tomography images of the head/brain without intravenous contrast. CTDI is 49.2 mGy and DLP is 1068.4 mGy-cm. This CT exam was performed using one or more of the following dose reduction techniques: automated exposure control, adjustment of the mA and/or kV according to patient size, and/or use of iterative reconstruction technique. COMPARISON: 09/27/20 FINDINGS: Brain: No acute intracranial hemorrhage, large hypodensity, or significant mass effect. Nonspecific areas of hypoattenuation in the periventricular white matter likely represent the sequela of chronic small vessel ischemic disease. Ventricles: Ventricular and sulcal prominence commensurate with the patient's age. Bones/joints: No acute abnormality. Soft tissues: No significant abnormality. Sinuses: Mild mucosal thickening. Mastoid air cells: No significant abnormality. IMPRESSION: No acute intracranial hemorrhage or calvarial fracture.
[2020-12-15] MEDS: ALBUTEROL NEBULIZED 2.5 MG/3 ML INHALATION SCH ×4 (08:12→20:21)
[2020-12-15] MEDS: ATORVASTATIN 40 MG TAB PO SCH (08:29)
[2020-12-15] MEDS: carvediloL 3.125 MG TAB PO SCH ×2 (08:29→17:40)
[2020-12-15] MEDS: LEVOTHYROXINE 75 MCG TAB PO SCH (08:31)
[2020-12-15] MEDS: FUROSEMIDE 10 MG/ML 4 ML VIAL IV SCH ×2 (08:35→20:57)
[2020-12-15] MEDS: FAMOTIDINE 20 MG TAB PO SCH ×2 (08:35→20:58)
[2020-12-15] MEDS: CHOLECALCIFEROL 25 MCG (1000 IU) TABLET PO SCH (08:35)
[2020-12-15] MEDS ORDERED: NON FORMULARY DRUG (Vitamin B Complex [Vitamin B Complex] 1 EACH Capsule) PO SCH (09:00)
[2020-12-15] MEDS ORDERED: ASPIRIN 325 MG TAB PO SCH ×2 (09:00)
[2020-12-15 09:33] LABS: Anisocytosis Slight; Basophils # (A) 0.1 k/uL (0-0.2); Basophils % (A) 1 %; Eosinophils # (A) 0.2 k/uL (0-0.7); Eosinophils % (A) 2 %; HCT 41.6 % (39.0-53.0); HGB 13.9 gm/dL (13.0-17.5); Lymphocytes % (A) 10 %; MCH 26.8 pg (25.0-35.0); MCHC 33.3 g/dL (31.0-37.0); MCV 80.5 fL (80.0-100.0); Mean Platelet Volume 7.1; Monocytes # (A) 0.9 k/uL (0-1.0); Monocytes % (A) 10 %; Neutrophils # (A) 7.2 k/uL (1.3-7.7); Neutrophils % (A) 74 %; Platelet Count 216 k/uL (150-450); RBC 5.17 m/uL (4.30-5.90); RDW 16.3 % (11.5-15.5); WBC 9.7 k/uL (3.8-10.6)
[2020-12-15 09:42] LABS: Calcium 9.3 mg/dL (8.4-10.2); Potassium 4.3 mmol/L (3.5-5.1)
--- NOTE | 2020-12-15 09:44 | P.PN ---
<Matt Enciso - Last Filed: 12/15/20 13:43> Subjective Progress Note Date: 12/15/20 Hospital course: Patient is a very pleasant 85-year-old male with a past medical history includ ing CAD with previous [place] and status post CABG (quadruple bypass), atrial fibrillation on anticoagulation with Coumadin and is status post ablation, hypertension, hyperlipidemia, and stage IV lung cancer. The patient presented to the hospital with a chief complaint of increasing shortness of breath 1 week. Patient just recently took a road trip to [place] and returned 12/13/20. Patient's reports that shortly after arriving to [place] she noticed her experiencing some periods of confusion, falls, and complaints of shortness of breath. Patient's reports this progressively worsened over the last week and has been accompanied by swelling in his lower extremities.which is why she brought him to the hospital for further evaluation. Upon evaluation in the emergency department, an x-ray was completed showing mild interstitial edema with small bilateral pleural effusions. EKG was completed showing normal sinus rhythm at 63 bpm with a first-degree AV block with TN interval of 228 ms and occasional PACs, no significant T-wave or ST abnormalities showing no signs of acute ischemia. Troponin was found to be elevated at 0.037 with repeat troponin of 0.047. ProBNP was 22,500. Sodium 125. CT head also completed which was negative for acute intracranial process. patient was admitted under our services for CHF exacerbation with consultation to cardiology. Echocardiogram completed revealing a severely impaired EF between 20 and 25% with global hypokinesis, moderate to severe aortic valve sclerosis, moderate mitral and tricuspid valve regurgitation, and moderate pulmonary hypertension. Physical exam: Patient seen and fully evaluated at the bedside. He reports improvement in his shortness of breath, currently on 2 L O2 via nasal cannula. respirations were even, regular, and unlabored. Lungs were diminished with some crackles at bilateral bases. Patient denies having any headache, lightheadedness, dizz iness, changes in vision or hearing, chest pain or palpitations, abdominal pain, nausea, vomiting, or experiencing any difficulties in or changes in his urinary function. General: non toxic, no distress, appears at stated age Derm: warm, dry. bruising left lateral, temporal region of head, forehead, and jaw Head: atraumatic, normocephalic, symmetric Eyes: no lid lag, anicteric sclera Mouth: no lip lesion, mucus membranes moist Cardiovascular: S1S2 reg, no murmur,gallop, or rub. Positive posterior tibial pulses. 3+ pitting bilateral lower extremity edema. Lungs: respirations even, regular, and unlabored on 2 L O2 via nasal cannula. Lungs diminished with soft crackles at bilateral bases. Abdominal: Soft, nontender to palpation, no guarding, no appreciable organomegaly Ext: no gross muscle atrophy, no contractures Neuro: CN II-XI grossly intact, no focal neuro deficits Psych: Alert, oriented, appropriate affect Plan of care: Acute on chronic systolic heart failure exacerbation -Echocardiogram completed revealing a severely impaired EF between 20 and 25% with global hypokinesis, moderate to severe aortic valve sclerosis, moderate mitral and tricuspid valve regurgitation, and moderate pulmonary hypertension. -Chest x-ray was completed showing mild interstitial edema with small bilateral pleural effusions. -ProBNP 22,500 -Cardiology consult -Telemetry monitoring. -Daily weights -Close monitoring of I's and O's -Cardiac diet -Lasix 40 mg IVP BID -Continue warfarin, pharmacy to dose. INR therapeutic at 2.0. -Continuation of daily medications including: Aspirin, atorvastatin, and amlodipine, and carvedilol -Continued close monitoring of electrolytes while diuresing. Hyponatremia -Sodium 125, likely secondary to dilution resulting from fluid overload. -We will continue with Lasix 40 mg IVP twice daily. -Continue to monitor closely with repeat a.m. labs. Recurrent falls on anticoagulant -CT head negative for acute intracranial process. -Fall precautions -PT/OT evaluation. Atrial fibrillation on anticoagulation with Coumadin and is status post ablation -Continue anticoagulation with warfarin, pharmacy to dose. -INR therapeutic at 2.0. Hypertension -Monitor vital signs and continue daily medication regimen with carvedilol Hyperlipidemia -Continue daily medication management with atorvastatin 40 mg nightly. -Heart healthy diet. Hypothyroidism Continue daily medication management with the levothyroxine 75 g each morning. Stage IV lung cancer -Continue to follow up outpatient upon discharge with Dr. Shaw as scheduled for management. CODE STATUS: full code DVT prophylaxis: Coumadin Discussed with: patient and his Anticipated discharge date: clinical course to determine Anticipated discharge place: home A total of 45 minutes was spent on the care of this complex patient more than 50% of the time was spent in counseling and care coordination. Objective - Vital Signs Vital signs: Vital Signs Temp 97.6 F 12/15/20 08:14 Pulse 84 12/15/20 08:22 Resp 16 12/15/20 08:22 BP 153/101 12/15/20 08:14 Pulse Ox 99 12/15/20 08:14 Intake & Output 12/14/20 12/15/20 12/15/20 18:59 06:59 18:59 Weight 81.193 kg - Labs CBC & Chem 7: 12/15/20 09:13 12/15/20 09:13 Labs: Abnormal Lab Results - Last 24 Hours (Table) 12/15/20 12/15/20 12/15/20 Range/Units 01:55 01:55 01:55 RDW 16.5 H (11.5-15.5) % Lymphocytes # 0.8 L (1.0-4.8) k/uL PT 20.0 H (9.0-12.0) sec INR 2.0 H (<1.2) APTT 30.8 H (22.0-30.0) sec Sodium (137-145) mmol/L Potassium (3.5-5.1) mmol/L Chloride (98-107) mmol/L BUN (9-20) mg/dL Glucose (74-99) mg/dL Alkaline Phosphatase (38-126) U/L Troponin I 0.037 H* (0.000-0.034) ng/mL Albumin (3.5-5.0) g/dL 12/15/20 12/15/20 12/15/20 Range/Units 03:33 06:08 09:13 RDW 16.3 H (11.5-15.5) % Lymphocytes # (1.0-4.8) k/uL PT (9.0-12.0) sec INR (<1.2) APTT (22.0-30.0) sec Sodium 125 L (137-145) mmol/L Potassium 5.3 H (3.5-5.1) mmol/L Chloride 96 L (98-107) mmol/L BUN 26 H (9-20) mg/dL Glucose 106 H (74-99) mg/dL Alkaline Phosphatase 139 H (38-126) U/L Troponin I 0.047 H* (0.000-0.034) ng/mL Albumin 3.4 L (3.5-5.0) g/dL <Divya Ledbetter - Last Filed: 12/15/20 15:10> Objective - Vital Signs Vital signs: Vital Signs Temp 98.4 F 12/15/20 14:00 Pulse 64 12/15/20 15:04 Resp 18 12/15/20 15:04 BP 122/101 12/15/20 14:00 Pulse Ox 94 L 12/15/20 14:00 Intake & Output 12/14/20 12/15/20 12/15/20 18:59 06:59 18:59 Output Total 2069 Balance -2069 Weight 81.193 kg 81.193 kg Output: Urine 2069 - Labs CBC & Chem 7: 12/15/20 09:13 12/15/20 09:13 Labs: Abnormal Lab Results - Last 24 Hours (Table) 12/15/20 12/15/20 12/15/20 Range/Units 01:55 01:55 01:55 RDW 16.5 H (11.5-15.5) % Lymphocytes # 0.8 L (1.0-4.8) k/uL PT 20.0 H (9.0-12.0) sec INR 2.0 H (<1.2) APTT 30.8 H (22.0-30.0) sec Sodium (137-145) mmol/L Potassium (3.5-5.1) mmol/L Chloride (98-107) mmol/L BUN (9-20) mg/dL Glucose (74-99) mg/dL Alkaline Phosphatase (38-126) U/L Troponin I 0.037 H* (0.000-0.034) ng/mL Albumin (3.5-5.0) g/dL 12/15/20 12/15/20 12/15/20 Range/Units 03:33 06:08 09:13 RDW (11.5-15.5) % Lymphocytes # (1.0-4.8) k/uL PT (9.0-12.0) sec INR (<1.2) APTT (22.0-30.0) sec Sodium 125 L (137-145) mmol/L Potassium 5.3 H (3.5-5.1) mmol/L Chloride 96 L (98-107) mmol/L BUN 26 H (9-20) mg/dL Glucose 106 H (74-99) mg/dL Alkaline Phosphatase 139 H (38-126) U/L Troponin I 0.047 H* 0.045 H* (0.000-0.034) ng/mL Albumin 3.4 L (3.5-5.0) g/dL 12/15/20 12/15/20 Range/Units 09:13 09:13 RDW 16.3 H (11.5-15.5) % Lymphocytes # (1.0-4.8) k/uL PT (9.0-12.0) sec INR (<1.2) APTT (22.0-30.0) sec Sodium 127 L (137-145) mmol/L Potassium (3.5-5.1) mmol/L Chloride 92 L (98-107) mmol/L BUN 25 H (9-20) mg/dL Glucose 104 H (74-99) mg/dL Alkaline Phosphatase (38-126) U/L Troponin I (0.000-0.034) ng/mL Albumin (3.5-5.0) g/dL Assessment and Plan Assessment: I discussed the care with Matt Enciso NP and reviewed the findings and plan as documented in the note above. I did not physically speak with or examine the patient on this date. Patient was admitted by Dr. Trimble earlier today
[2020-12-15] MEDS: amLODIPine 10 MG TAB PO SCH (09:54)
--- NOTE | 2020-12-15 11:08 | ECHOF ---
Referral Reason:Heart Failure MEASUREMENTS -------- HEIGHT: 175.3 cm WEIGHT: 81.2 kg BP: 161/98 RVIDd: 3.5 cm (< 3.3) IVSd: 1.4 cm (0.6 - 1.1) LVIDd: 4.7 cm (3.9 - 5.3) LVPWd: 1.6 cm (0.6 - 1.1) IVSs: 1.6 cm LVIDs: 4.4 cm LVPWs: 1.8 cm LAESV Index (A-L): 47.13 ml/m Ao Diam: 3.0 cm (2.0 - 3.7) AV Cusp: 1.1 cm (1.5 - 2.6) LA Diam: 4.8 cm (2.7 - 3.8) MV EXCURSION: 19.297 mm (> 18.000) MV EF SLOPE: 57 mm/s (70 - 150) EPSS: 1.3 cm MV E Roberto: 1.17 m/s MV DecT: 191 ms MV A Roberto: 0.75 m/s MV E/A Ratio: 1.56 RAP: 20.00 mmHg RVSP: 54.38 mmHg FINDINGS -------- This was a technically difficult study with suboptimal views. The left ventricular size is normal. There is moderate concentric left ventricular hypertrophy. O verall left ventricular systolic function is severely impaired with, an EF between 20 - 25 %. Globa l hypokinesis The right ventricle is mildly enlarged. LA is severely dilated >40 ml/m2 The right atrium is moderately enlarged. 5.0mg of Lumason was utilized for enhancement of images Interatrial and interventricular septum intact. There is moderate to severe aortic valve sclerosis. There is no evidence of aortic regurgitation. Decreased Aortic valve opening, sugestive of stenosis. No gradient noted across the valve. Moderate mitral regurgitation is present. Moderate tricuspid regurgitation present. There is moderate pulmonary hypertension. The right tod tricular systolic pressure, as measured by Doppler, is 54.38mmHg. Trace/mild (physiologic) pulmonic regurgitation. The aortic root size is normal. The inferior vena cava is dilated with poor inspiratory collapse which is consistent with estimated r ight atrial pressure of 20 mmHg. There is no pericardial effusion. CONCLUSIONS -------- 1. The left ventricular size is normal. 2. There is moderate concentric left ventricular hypertrophy. 3. Overall left ventricular systolic function is severely impaired with, an EF between 20 - 25 %. 4. Global hypokinesis 5. The right ventricle is mildly enlarged. 6. LA is severely dilated >40 ml/m2 7. The right atrium is moderately enlarged. 8. There is moderate to severe aortic valve sclerosis. 9. Decreased Aortic valve opening, sugestive of stenosis. No gradient noted across the valve. 10. Moderate mitral regurgitation is present. 11. Moderate tricuspid regurgitation present. 12. There is moderate pulmonary hypertension. 13. The right ventricular systolic pressure, as measured by Doppler, is 54.38mmHg. 14. Trace/mild (physiologic) pulmonic regurgitation. 15. The inferior vena cava is dilated with poor inspiratory collapse which is consistent with estimat ed right atrial pressure of 20 mmHg. TESTING ANALYST: Sherlyn Carmona RDCS
--- NOTE | 2020-12-15 11:47 | CT ---
EXAMINATION TYPE: CT angio chest DATE OF EXAM: 12/15/2020 COMPARISON: Chest x-ray 12/15/2020, CT 09/27/2020 HISTORY: Difficulty breathing, query pulmonary embolism, known lung cancer CT DLP: 326.9 mGycm Automated exposure control for dose reduction was used. CONTRAST: CTA scan of the thorax is performed with IV Contrast, patient injected with 80ml mL of Isovue 370, pu lmonary embolism protocol. MIP images are created and reviewed. 3D reconstructed images are created on an independent workstation and reviewed. FINDINGS: LUNGS: The lungs are remarkable for emphysematous changes, there is prominence interstitium. There are bilateral pleural effusions, associated atelectasis. The tracheobronchial tree is patent. AORTA: No additional significant abnormality is seen. MEDIASTINUM: There is satisfactory enhancement of the pulmonary artery and its central branches, ther e is no CT evidence for pulmonary embolism although there is poor filling of the peripheral branches possibly due to decreased cardiac output. There are no greater than 1 cm hilar or mediastinal lymph nodes. No pericardial effusion is seen. Prominence of pulmonary artery suggestive of underlying pul monary artery hypertension. The heart is enlarged. There are extensive coronary artery calcifications , patient is post median sternotomy OTHER: Reflux of contrast into the hepatic veins may be indicative of right heart failure. IMPRESSION: FINDINGS CONSISTENT WITH CONGESTIVE HEART FAILURE PATIENT WITH PRE-EXISTING COPD NOTED ON CHEST X- RAY SAME DAY
--- NOTE | 2020-12-15 11:49 | P.CRDCN ---
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 He has been on chemotherapy for the past 2 years, Follows with Dr. Smallwood. He follows in the office with Dr. Cisneros. We have been asked to see in consultation for congestive heart failure and elevated troponin. Patient is seen and examined in the emergency department. Patient and at bedside. They were traveling this past weekend/early week to [place] to visit their son playing baseball, they drove. They did eat out , and had [employer] during their trip. While they were in [place], the patient had episodes at night with increased confusion, 4 falls, and increased shortness of breath and bilateral lower extremity edema and scrotal edema. Patient states that frequently at night in bed he woke up short of breath, having to sit at the edge of the bed in order to catch his breath. states that he was confused, didn't know where he was also thought his son was his nephew. Patient's also stated that patient became frequently unsteady and actually fell four times and hit his head. Patient endorses occasional lightheadedness and dizziness. He has been having symptoms of orthopnea and PND. He has been needing to sleep in the chair due to shortness of breath. He also noticed weight gain. They returned from their trip on 12/13, believes patient's mentation improved once they were home. Denies chest pain or discomfort, palpitations, dizziness, syncope. He denies history of diabetes. He is a former smoker quit in . DIAGNOSTICS Most recent Echo in the office 06/24/2020 revealed LV size is mildly decreased with an EF 45%, grade 1 diastolic dysfunction, moderately dilated left atrium, moderate mitral regurgitation, mild tricuspid regurgitation Most recent cardiac catheterization 10/17/2018 revealed severe two-vessel coronary artery disease involving the LAD and RCA, patent SAMANIEGO to LAD, patent SVG to RCA, mild disease involving the left circumflex Most recent Holter Monitor Report 01/2020- sinus mechanism with heart rates ranging from 38-99 bpm, average 35 bpm. No nonsustained ventricular tachycardia. No atrial fibrillation. PVCs are mostly of one single morphology EKG reveals sinus rhythm, heart rate 63 with first degree AV block, no significant STT wave abnormalities, prior EKG in 09/2020 is similar Chest xray pulmonary edema and bilateral pleural effusions. Current home cardiac medications include carvedilol 3.125 mg twice a day, Coumadin 2.5 mg Tuesdays and Saturdays, 5 mg the other days of the week. He used to be on amlodipine 10 mg daily but this was discontinued due to hypotension Laboratory data reviewed WBC 9.7, hemoglobin 13.9, platelets 216, sodium 127, potassium 4.3, serum creatinine 1.19, BUN 25, proBNP 22,500, troponin 0.037, 0.047, COVID-19 negative REVIEW OF SYSTEMS At the time of my exam: CONSTITUTIONAL: Denies fever or chills. CARDIOVASCULAR: +shortness of breath, + orthopnea, +PND, Denies chest pain or palpitations. RESPIRATORY: Denies cough. GASTROINTESTINAL: Denies abdominal pain, diarrhea, constipation, nausea or vomiting. MUSCULOSKELETAL: Denies myalgias. NEUROLOGIC: +confusion, +dizziness Denies numbness, tingling, headacbe or weakness. ENDOCRINE: +weight gain Denies fatigue, polydipsia or polyurina. GENITOURINARY: Denies burning, hematuria or urgency with micturation. HEMATOLOGIC: Denies history of anemia or bleeding. PHYSICAL EXAMINATION CONSTITUTIONAL: Patient appears tired, frail, and weak HEENT: Head is normocephalic. Pupils are equal, round. Sclerae anicteric. Mucous membranes of the mouth are moist. No JVD. No carotid bruit. CHEST EXAMINATION: Lungs with crackles bilateral bases. No chest wall tenderness is noted on palpation or with deep breathing. HEART EXAMINATION: Regular rate and rhythm. S1, S2 heard. Systolic ejection murmur heard at the apex, S3 gallop. ABDOMEN: Soft, nontender. Positive bowel sounds. EXTREMITIES: 2+ peripheral pulses, 3+ bilateral lower extremity edema :- scrotal edema noted SKIN: Bruise noted on left side of head NEUROLOGIC EXAMINATION: Patient is awake, alert and oriented x3. ASSESSMENT Acute on chronic heart failure with reduced ejection fraction, most recent EF 45% Cardiomyopathy- may be due to chemotherapy, repeat echo pendin Coronary artery disease s/p CABG Paroxysmal atrial fibrillation/atrial flutter s/p ablation in 2012 on coumadin. [id number] score 4 History of hypertension- Patient not previously on an ACEI/ARB due to hypotension. Amlodipine was held outpatient also due to hypotension Dyslipidemia Stage IV Lung Cancer on chemotherapy Hyponatremia PLAN -Obtain 2D echocardiogram -Continue beta ramirez -Continue IV Diuresis -Continue coumadin and statin -Continue amlodipine 10mg daily -Daily INR -Heart Healthy Diet, I/Os, Daily Weights -Monitor renal function and electrolytes -Close follow up in clinic -Further recommendations to follow Nurse Practitioner note has been reviewed, I agree with a documented findings and plan of care. Patient was seen and examined. Past Medical History Past Medical History: Atrial Flutter, Coronary Artery Disease (CAD), Cancer, Chest Pain / Angina, GERD/Reflux, Hearing Disorder / Deafness, Hyperlipidemia, Hypertension, Myocardial Infarction ([place]), Prostate Disorder, Renal Disease Additional Past Medical History / Comment(s): newly dx of CA left neck with lymph node involvement,hx prostate cancer, bilateral legs are beginning to get numb from knees down and right hand as well. IRON DEFICIENCY ANEMIA. stage four lung cancer/neck, 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, Past Anesthesia/Blood Transfusion Reactions: No Reported Reaction Additional Past Anesthesia/Blood Transfusion Reaction / Comment(s): no known hx blood transfusions or complications Past Psychological History: No Psychological Hx Reported Smoking Status: Former smoker Past Alcohol Use History: None Reported, Rare Past Drug Use History: None Reported - Past Family History Father Family Medical History: Cancer Medications and Allergies Home Medications Medication Instructions Recorded Confirmed Type RX: Nitroglycerin Sl Tabs 0.4 mg SUBLINGUAL Q5M PRN 04/08/14 12/15/20 History [Nitrostat] RX: Warfarin [Coumadin] 5 mg PO SUMOWETHFR 04/08/14 12/15/20 History RX: Vitamin B Complex 1 cap PO DAILY 12/22/18 12/15/20 History Cholecalciferol (Vitamin D3) 75 mcg PO DAILY 12/15/20 12/15/20 History [Vitamin D3 (3000 Iu)] Famotidine [Pepcid] 40 mg PO BID 12/15/20 12/15/20 History Levothyroxine Sodium [Synthroid] 75 mcg PO DAILY 12/15/20 12/15/20 History Warfarin [Coumadin] 2.5 mg PO TUSA 12/15/20 12/15/20 History carvediloL [Coreg] 3.125 mg PO BID 12/15/20 12/15/20 History Allergies Allergy/AdvReac Type Severity Reaction Status Date / Time No Known Allergies Allergy Verified 12/15/20 06:37 Physical Exam Vitals: Vital Signs Temp Pulse Resp BP Pulse Ox 12/15/20 05:33 97.8 F 66 20 161/98 97 12/15/20 03:36 97.8 F 61 20 153/83 97 12/15/20 02:00 64 20 98 12/15/20 00:45 97.4 F L 67 22 159/74 96 Intake and Output 12/14/20 12/15/20 12/15/20 22:59 06:59 14:59 Other: Weight 81.193 kg Results 12/15/20 09:13 12/15/20 09:13 Cardiac Enzymes 12/15/20 12/15/20 12/15/20 Range/Units 01:55 03:33 06:08 AST 50 (17-59) U/L Troponin I 0.037 H* 0.047 H* (0.000-0.034) ng/mL Coagulation 12/15/20 Range/Units 01:55 PT 20.0 H (9.0-12.0) sec APTT 30.8 H (22.0-30.0) sec CBC 12/15/20 Range/Units 01:55 WBC 8.9 (3.8-10.6) k/uL RBC 5.22 (4.30-5.90) m/uL Hgb 14.0 (13.0-17.5) gm/dL Hct 41.8 (39.0-53.0) % Plt Count 189 (150-450) k/uL Comprehensive Metabolic Panel 12/15/20 Range/Units 03:33 Sodium 125 L (137-145) mmol/L Potassium 5.3 H (3.5-5.1) mmol/L Chloride 96 L (98-107) mmol/L Carbon Dioxide 22 (22-30) mmol/L BUN 26 H (9-20) mg/dL Creatinine 1.12 (0.66-1.25) mg/dL Glucose 106 H (74-99) mg/dL Calcium 8.7 (8.4-10.2) mg/dL AST 50 (17-59) U/L ALT 26 (4-49) U/L Alkaline Phosphatase 139 H (38-126) U/L Total Protein 6.3 (6.3-8.2) g/dL Albumin 3.4 L (3.5-5.0) g/dL Current Medications Generic Name Dose Route Start Last Admin Trade Name Freq PRN Reason Stop Dose Admin Albuterol Sulfate 2.5 mg 12/15/20 08:00 Albuterol Nebulized 2.5 Mg/3 Ml INHALATION RT-QID [facility] Amlodipine Besylate 10 mg 12/15/20 21:00 Amlodipine 10 Mg Tab PO HS [facility] Atorvastatin Calcium 40 mg 12/15/20 09:00 Atorvastatin 40 Mg Tab PO DAILY [facility] Carvedilol 3.125 mg 12/15/20 08:00 Carvedilol 3.125 Mg Tab PO BID-W/MEALS [facility] Cholecalciferol 75 mcg 12/15/20 09:00 Cholecalciferol 25 Mcg (1000 Iu) Tablet PO DAILY JIG[facility] Famotidine 40 mg 12/15/20 09:00 Famotidine 20 Mg Tab PO BID JIGNA Furosemide 40 mg 12/15/20 09:00 Furosemide 10 Mg/Ml 4 Ml Vial IV Q12HR [facility] Levothyroxine Sodium 75 mcg 12/15/20 08:00 [place]othyrox[place] [address] [place] [address] [facility] Miscellaneous Information 1 each 12/15/20 04:30 Warfarin Per Pharmacy MISCELLANE DIRECTED PRN Per Protocol Protocol Pantoprazole Sodium 40 mg 12/15/20 21:00 Pantoprazole 40 Mg Tablet PO HS [facility] Sodium Chloride 10 ml 12/15/20 03:43 Sodium Chloride 0.9% Flush 10 Ml Syringe IV BID PRN Line Flush Intake and Output 12/14/20 12/15/20 12/15/20 22:59 06:59 14:59 Other: Weight 81.193 kg 12/15/20 01:55 12/15/20 03:33
--- NOTE | 2020-12-15 13:35 | US ---
EXAMINATION TYPE: US venous doppler duplex LE BI DATE OF EXAM: 12/15/2020 1:13 PM COMPARISON: 04/08/2014 CLINICAL HISTORY: bilateral lower extremity edema, recent car ride. CHF. On blood thinners. SIDE PERFORMED: Bilateral TECHNIQUE: The lower extremity deep venous system is examined utilizing real time linear array sonog amador with graded compression, doppler sonography and color-flow sonography. VESSELS IMAGED: Common Femoral Vein Deep Femoral Vein Greater Saphenous Vein * Femoral Vein Popliteal Vein Small Saphenous Vein * Proximal Calf Veins- not visualized due to patient unable to stay still (* superficial vessels) Right Leg: No evidence of deep venous thrombosis within the visualized right lower extremity veins t o the level of the popliteal vein. Left Leg: No evidence of deep venous thrombosis within the visualized left lower extremity veins the level of the popliteal vein. The calf veins were not visualized on this study due to patient's inability to remain still for the p rocedure. IMPRESSION: 1. The calf veins were not visualized on this study. No evidence of deep venous thrombosis within the bilateral lower extremity veins to the level of the popliteal veins.
[2020-12-15] MEDS ORDERED: WARFARIN 5 MG TAB PO ONE (18:00)
[2020-12-15] MEDS: PANTOPRAZOLE 40 MG TABLET PO SCH (20:58)
[2020-12-15] MEDS ORDERED: amLODIPine 10 MG TAB PO SCH (21:00)
[2020-12-16] MEDS: carvediloL 3.125 MG TAB PO SCH ×2 (06:57→18:14)
[2020-12-16] MEDS: LEVOTHYROXINE 75 MCG TAB PO SCH (06:57)
[2020-12-16] MEDS: FAMOTIDINE 20 MG TAB PO SCH ×2 (08:30→20:45)
[2020-12-16] MEDS: CHOLECALCIFEROL 25 MCG (1000 IU) TABLET PO SCH (08:30)
[2020-12-16] MEDS: ATORVASTATIN 40 MG TAB PO SCH (08:30)
[2020-12-16] MEDS: amLODIPine 10 MG TAB PO SCH (08:30)
[2020-12-16] MEDS: FUROSEMIDE 10 MG/ML 4 ML VIAL IV SCH ×2 (08:30→20:45)
[2020-12-16] MEDS: ALBUTEROL NEBULIZED 2.5 MG/3 ML INHALATION SCH ×4 (08:35→19:59)
[2020-12-16 09:43] LABS: Anisocytosis Slight; HCT 39.5 % (39.0-53.0); HGB 13.1 gm/dL (13.0-17.5); MCH 26.7 pg (25.0-35.0); MCHC 33.2 g/dL (31.0-37.0); MCV 80.5 fL (80.0-100.0); Mean Platelet Volume 7.2; Platelet Count 188 k/uL (150-450); RBC 4.91 m/uL (4.30-5.90); RDW 16.3 % (11.5-15.5); WBC 9.9 k/uL (3.8-10.6)
[2020-12-16 09:46] LABS: INR 2.4 (<1.2); Prothrombin Time 23.4 sec (9.0-12.0)
[2020-12-16 09:54] LABS: Calcium 9.1 mg/dL (8.4-10.2); Magnesium 1.7 mg/dL (1.6-2.3); Potassium 3.8 mmol/L (3.5-5.1)
--- NOTE | 2020-12-16 10:44 | P.PN ---
<Matt Enciso - Last Filed: 12/16/20 10:22> Subjective Progress Note Date: 12/16/20 Hospital course: Patient is a very pleasant 85-year-old male with a past medical history includ ing CAD with previous NM and status post CABG (quadruple bypass), atrial fibrillation on anticoagulation with Coumadin and is status post ablation, hypertension, hyperlipidemia, and stage IV lung cancer. The patient presented to the hospital with a chief complaint of increasing shortness of breath 1 week. Patient just recently took a road trip to [place] and returned 12/13/20. Patient's reports that shortly after arriving to [place] she noticed her experiencing some periods of confusion, falls, and complaints of shortness of breath. Patient's reports this progressively worsened over the last week and has been accompanied by swelling in his lower extremities.which is why she brought him to the hospital for further evaluation. Upon evaluation in the emergency department, an x-ray was completed showing mild interstitial edema with small bilateral pleural effusions. EKG was completed showing normal sinus rhythm at 63 bpm with a first-degree AV block with MT interval of 228 ms and occasional PACs, no significant T-wave or ST abnormalities showing no signs of acute ischemia. Troponin was found to be elevated at 0.037 with repeat troponin of 0.047. ProBNP was 22,500. Sodium 125. CT head also completed which was negative for acute intracranial process. patient was admitted under our services for CHF exacerbation with consultation to cardiology. Echocardiogram completed revealing a severely impaired EF between 20 and 25% with global hypokinesis, moderate to severe aortic valve sclerosis, moderate mitral and tricuspid valve regurgitation, and moderate pulmonary hypertension. Physical exam: Patient seen and fully evaluated at the bedside. He reports his feeling of shortness of breath is unchanged from yesterday, currently he is on 3 L O2 via nasal cannula and just completed nebulizer treatment. Respirations were even, regular, and unlabored. Lungs remain diminished with increased diffuse coa rseness bilaterally. Patient denies having any headache, lightheadedness, dizziness, changes in vision or hearing, chest pain or palpitations, abdominal pain, nausea, vomiting, or experiencing any difficulties in or changes in his urinary function. General: non toxic, no distress, appears at stated age Derm: warm, dry. bruising left lateral, temporal region of head, forehead, and jaw Head: atraumatic, normocephalic, symmetric Eyes: no lid lag, anicteric sclera Mouth: no lip lesion, mucus membranes moist Cardiovascular: S1S2 reg, Murmur present, no gallop or rub. Positive posterior tibial pulses. 2+ pitting bilateral lower extremity edema. Lungs: respirations even, regular, and unlabored on 3 L O2 via nasal cannula this morning. Lungs diminished with diffuse rhonchi . Abdominal: Soft, nontender to palpation, no guarding, no appreciable organom egaly Ext: no gross muscle atrophy, no contractures Neuro: CN II-XI grossly intact, no focal neuro deficits Psych: Alert, oriented, appropriate affect Plan of care: Acute on chronic systolic heart failure exacerbation -Echocardiogram completed revealing a severely impaired EF between 20 and 25% with global hypokinesis, moderate to severe aortic valve sclerosis, moderate mitral and tricuspid valve regurgitation, and moderate pulmonary hypertension. -Chest x-ray was completed showing mild interstitial edema with small bilateral pleural effusions. -VQ scan consistent for CHF -ProBNP 22,500 -Cardiology consult -Telemetry monitoring. -Daily weights -Close monitoring of I's and O's -Cardiac diet -Lasix 40 mg IVP BID -Continue warfarin, pharmacy to dose. INR therapeutic at 2.0. -Continuation of daily medications including: Aspirin, atorvastatin, and amlodipine, and carvedilol -Continued close monitoring of electrolytes while diuresing. Hyponatremia, improving with diuresis -Sodium 128, secondary to dilution resulting from fluid overload. -We will continue with Lasix 40 mg IVP twice daily. -Continue to monitor closely with repeat a.m. labs. Recurrent falls on anticoagulant -CT head negative for acute intracranial process. -Fall precautions -PT/OT evaluation. Atrial fibrillation on anticoagulation with Coumadin and is status post ablation -Continue anticoagulation with warfarin, pharmacy to dose. -INR therapeutic at 2.4. Hypertension -Monitor vital signs and continue daily medication regimen with carvedilol Hyperlipidemia -Continue daily medication management with atorvastatin 40 mg nightly. -Heart healthy diet. Hypothyroidism Continue daily medication management with the levothyroxine 75 g each morning. Stage IV lung cancer -Continue to follow up outpatient upon discharge with Dr. Shaw as scheduled for management. CODE STATUS: full code DVT prophylaxis: Coumadin Discussed with: patient and his daughter at bedside Anticipated discharge date: clinical course to determine Anticipated discharge place: home A total of 45 minutes was spent on the care of this complex patient more than 50% of the time was spent in counseling and care coordination. Objective - Vital Signs Vital signs: Vital Signs Temp 98 F 12/16/20 08:00 Pulse 56 L 12/16/20 08:47 Resp 16 12/16/20 08:00 BP 127/65 12/16/20 08:00 Pulse Ox 93 L 12/16/20 08:00 Intake & Output 12/15/20 12/16/20 12/16/20 18:59 06:59 18:59 Intake Total 120 Output Total 3667 1574 Balance -9008 -1246 120 Weight 81.193 kg 73.2 kg Intake: Oral 120 Output: Urine 9442 1575 - Labs CBC & Chem 7: 12/16/20 09:10 12/16/20 09:10 Labs: Abnormal Lab Results - Last 24 Hours (Table) 12/15/20 12/15/20 12/15/20 Range/Units 09:13 09:13 09:13 RDW 16.3 H (11.5-15.5) % Sodium 127 L (137-145) mmol/L Chloride 92 L (98-107) mmol/L BUN 25 H (9-20) mg/dL Glucose 104 H (74-99) mg/dL Troponin I 0.045 H* (0.000-0.034) ng/mL <Divya Ledbetter - Last Filed: 12/16/20 15:27> Objective - Vital Signs Vital signs: Vital Signs Temp 98 F 12/16/20 08:00 Pulse 58 L 12/16/20 12:12 Resp 16 12/16/20 12:00 BP 123/77 12/16/20 12:00 Pulse Ox 96 12/16/20 12:00 Intake & Output 12/15/20 12/16/20 12/16/20 18:59 06:59 18:59 Intake Total 356 Output Total 0041 6330 Balance -7165 -9092 356 Weight 81.193 kg 73.2 kg 73.2 kg Intake: Oral 356 Output: Urine 4079 1575 - Labs CBC & Chem 7: 12/16/20 09:10 12/16/20 09:10 Labs: Abnormal Lab Results - Last 24 Hours (Table) 12/16/20 12/16/20 12/16/20 Range/Units 09:10 09:10 09:10 RDW 16.3 H (11.5-15.5) % PT 23.4 H (9.0-12.0) sec INR 2.4 H (<1.2) Sodium 128 L (137-145) mmol/L Chloride 91 L (98-107) mmol/L Carbon Dioxide 31 H (22-30) mmol/L BUN 27 H (9-20) mg/dL Glucose 129 H (74-99) mg/dL Assessment and Plan Assessment: Patient seen and examined independently. Patient was also seen by Matt Enciso NP and case was discussed. I am in agreement with subjective, physical exam, assessment and plan as written above and amended below. Sleeping and having some difficulty comprehending waking up on the present at bedside and all questions answered. General: non toxic, no distress, appears at stated age Derm: Bruising in various stages of healing on the left side of his head, both arms warm, dry Head: atraumatic, normocephalic, symmetric Eyes: EOMI, no lid lag, anicteric sclera Mouth: no lip lesion, mucus membranes moist Cardiovascular: S1S2 reg, no murmur, positive posterior tibial pulse bilateral, Lungs: Decreased breath sounds bilateral, no rhonchi, no rales , no accessory muscle use Ext: no gross muscle atrophy, trace edema, no contractures
[2020-12-16] MEDS: lisinopriL 5 MG TAB PO SCH ×2 (12:21→20:45)
--- NOTE | 2020-12-16 12:54 | PN ---
PROGRESS NOTE Mr. Silva is an 85-year-old male who was admitted with symptoms of progressive dyspnea. He is status post coronary artery bypass grafting. He has a history of paroxysmal atrial fibrillation, history of stage IV lung cancer, who presented with symptoms of progressive dyspnea and evidence of heart failure. He feels better today. His breathing is better. He denies any chest pain. He denies any dizziness. He denies any nausea. He had an echocardiogram performed yesterday that revealed a decrease in left ventricular systolic function, ejection fraction 20-25%. with a moderate mitral regurgitation and tricuspid regurgitation with moderate pulmonary hypertension. He continues to be at this time on amlodipine 10 mg daily, Lipitor 40 mg daily, Coreg 3.125 mg twice a day, Lasix 40 mg IV q.12 hours in addition to Coumadin and Pepcid. PHYSICAL EXAMINATION: Blood pressure 127/60 with a heart rate in the 70s. LUNGS: No wheezes or rales. HEART: Regular rate and rhythm S1, S2. No S3. No rub appreciated with a systolic murmur heard at the base. ABDOMEN: Soft, nontender. EXTREMITIES: No edema. LAB DATA: He had a CT angiogram that was consistent with congestive heart failure. His venous duplex scan revealed no evidence of deep venous thrombosis. IMPRESSION: 1. CHF with severe cardiomyopathy, worsened compared to before. 2. History of coronary artery disease status post coronary artery bypass grafting. 3. History of hyperlipidemia. 4. Status post atrial flutter and fibrillation ablation. 5. History of lung cancer. RECOMMENDATION: I will stop his amlodipine, switch him to an LISA inhibitor. Continue on the Coreg. Continue the IV diuresis for another 24 hours. Follow his renal function. Increase his level of activity and depending on his progress further recommendations will be made. MMODL / IJN: [id number] /
[2020-12-16 13:44] VITALS: BMI 23.8
[2020-12-16] MEDS: MAGNESIUM SULFATE-D5W PMX 1 GM in DEXTROSE/WATER 1 100ML.BAG IVPB SCH ×2 (17:46→19:38)
[2020-12-16] MEDS ORDERED: WARFARIN 2.5 MG TAB PO SCH (18:00)
[2020-12-16 18:45] LABS: Anisocytosis Slight; Basophils # (A) 0.1 k/uL (0-0.2); Basophils % (A) 1 %; Eosinophils # (A) 0.4 k/uL (0-0.7); Eosinophils % (A) 4 %; HCT 42.9 % (39.0-53.0); HGB 14.2 gm/dL (13.0-17.5); Lymphocytes # (A) 0.9 k/uL (1.0-4.8); Lymphocytes % (A) 8 %; MCH 26.7 pg (25.0-35.0); MCHC 33.1 g/dL (31.0-37.0); MCV 80.7 fL (80.0-100.0); Mean Platelet Volume 7.2; Monocytes % (A) 9 %; Neutrophils # (A) 8.2 k/uL (1.3-7.7); Neutrophils % (A) 75 %; Platelet Count 202 k/uL (150-450); RBC 5.32 m/uL (4.30-5.90); RDW 16.2 % (11.5-15.5)
[2020-12-16] MEDS: PANTOPRAZOLE 40 MG TABLET PO SCH (20:45)
[2020-12-17] MEDS: carvediloL 3.125 MG TAB PO SCH ×2 (06:31→16:54)
[2020-12-17] MEDS: LEVOTHYROXINE 75 MCG TAB PO SCH (06:31)
[2020-12-17] MEDS: ALBUTEROL NEBULIZED 2.5 MG/3 ML INHALATION SCH ×4 (07:44→21:01)
[2020-12-17 08:51] LABS: INR 2.5 (<1.2); Prothrombin Time 24.1 sec (9.0-12.0)
[2020-12-17] MEDS: ATORVASTATIN 40 MG TAB PO SCH (09:03)
[2020-12-17] MEDS: FUROSEMIDE 10 MG/ML 4 ML VIAL IV SCH (09:03)
[2020-12-17] MEDS: CHOLECALCIFEROL 25 MCG (1000 IU) TABLET PO SCH (09:03)
[2020-12-17] MEDS: FAMOTIDINE 20 MG TAB PO SCH (09:03)
[2020-12-17] MEDS: lisinopriL 5 MG TAB PO SCH ×2 (09:04→20:45)
--- NOTE | 2020-12-17 09:36 | P.PN ---
<Matt Enciso - Last Filed: 12/17/20 09:23> Subjective Progress Note Date: 12/17/20 Hospital course: Patient is a very pleasant 85-year-old male with a past medical history includ ing CAD with previous UT and status post CABG (quadruple bypass), atrial fibrillation on anticoagulation with Coumadin and is status post ablation, hypertension, hyperlipidemia, and stage IV lung cancer. The patient presented to the hospital with a chief complaint of increasing shortness of breath 1 week. Patient just recently took a road trip to [place] and returned 12/13/20. Patient's reports that shortly after arriving to [place] she noticed her experiencing some periods of confusion, falls, and complaints of shortness of breath. Patient's reports this progressively worsened over the last week and has been accompanied by swelling in his lower extremities.which is why she brought him to the hospital for further evaluation. Upon evaluation in the emergency department, an x-ray was completed showing mild interstitial edema with small bilateral pleural effusions. EKG was completed showing normal sinus rhythm at 63 bpm with a first-degree AV block with IL interval of 228 ms and occasional PACs, no significant T-wave or ST abnormalities showing no signs of acute ischemia. Troponin was found to be elevated at 0.037 with repeat troponin of 0.047. ProBNP was 22,500. Sodium 125. CT head also completed which was negative for acute intracranial process. patient was admitted under our services for CHF exacerbation with consultation to cardiology. Echocardiogram completed revealing a severely impaired EF between 20 and 25% with global hypokinesis, moderate to severe aortic valve sclerosis, moderate mitral and tricuspid valve regurgitation, and moderate pulmonary hypertension. Physical exam: Patient seen and fully evaluated at the bedside. He reports his feeling of shortness of breath is slightly improved from yesterday, currently he is on 3 L O2 via nasal cannula and just completed nebulizer treatment. Respirations were even, regular, and unlabored. Lungs remain diminished with increased diffuse coarseness bilaterally. Patient denies having any headache, lightheadedness, dizziness, changes in vision or hearing, chest pain or palpitations, abdominal pain, nausea, vomiting, or experiencing any difficulties in or changes in his urinary function. General: non toxic, no distress, appears at stated age Derm: warm, dry. bruising left lateral, temporal region of head, forehead, and jaw Head: atraumatic, normocephalic, symmetric Eyes: no lid lag, anicteric sclera Mouth: no lip lesion, mucus membranes moist Cardiovascular: S1S2 reg, Murmur present, no gallop or rub. Positive posterior tibial pulses. 2+ pitting bilateral lower extremity edema. Lungs: respirations even, regular, and unlabored on 3 L O2 via nasal cannula this morning. Lungs diminished with diffuse rhonchi . Abdominal: Soft, nontender to palpation, no guarding, no appreciable organomegaly Ext: no gross muscle atrophy, no contractures Neuro: CN II-XI grossly intact, no focal neuro deficits Psych: Alert, oriented, appropriate affect Plan of care: Acute on chronic systolic heart failure exacerbation -Echocardiogram completed revealing a severely impaired EF between 20 and 25% with global hypokinesis, moderate to severe aortic valve sclerosis, moderate mitral and tricuspid valve regurgitation, and moderate pulmonary hypertension. -Chest x-ray was completed showing mild interstitial edema with small bilateral pleural effusions. -VQ scan consistent for CHF -ProBNP 22,500 -Cardiology following, stopped amlodipine in place patient on LISA inhibitor, lisinopril -Telemetry monitoring. -Daily weights -Close monitoring of I's and O's -Cardiac diet -Lasix 40 mg IVP daily -Continue warfarin, pharmacy to dose. INR therapeutic at 2.5. -Continued close monitoring of electrolytes while diuresing. Hyponatremia, improving with diuresis -Sodium 131, secondary to dilution resulting from fluid overload. -Renal function is slightly elevated, will decrease Lasix to 40 mg daily. -Continue to monitor closely with repeat a.m. labs. Recurrent falls on anticoagulant -CT head negative for acute intracranial process. -Fall precautions -PT/OT evaluation, requesting [facility] for continued PT/OT Atrial fibrillation on anticoagulation with Coumadin and is status post ablation -Continue anticoagulation with warfarin, pharmacy to dose. -INR therapeutic at 2.5. Hypertension -Monitor vital signs and continue daily medication regimen with carvedilol Hyperlipidemia -Continue daily medication management with atorvastatin 40 mg nightly. -Heart healthy diet. Hypothyroidism Continue daily medication management with the levothyroxine 75 g each morning. Stage IV lung cancer -Continue to follow up outpatient upon discharge with Dr. Shaw as scheduled for management. CODE STATUS: full code DVT prophylaxis: Coumadin Discussed with: patient and his at bedside Anticipated discharge date: Possibly tomorrow, requesting set up with home care awaiting PT/OT evaluation. Anticipated discharge place: home with home care A total of 45 minutes was spent on the care of this complex patient more than 50% of the time was spent in counseling and care coordination. Objective - Vital Signs Vital signs: Vital Signs Temp 98.1 F 12/17/20 03:36 Pulse 70 12/17/20 03:36 Resp 17 12/17/20 03:36 BP 128/61 12/17/20 03:36 Pulse Ox 94 L 12/17/20 03:36 Intake & Output 12/16/20 12/17/20 12/17/20 18:59 06:59 18:59 Intake Total 456 Output Total 1650 500 Balance 456 -1650 -500 Weight 73.2 kg 69 kg Intake: Oral 456 Output: Urine 1650 500 Other: Voiding Method Urinal - Labs CBC & Chem 7: 12/16/20 17:48 12/17/20 07:37 Labs: Abnormal Lab Results - Last 24 Hours (Table) 12/16/20 12/16/20 12/16/20 Range/Units 09:10 09:10 09:10 WBC (3.8-10.6) k/uL RDW 16.3 H (11.5-15.5) % Neutrophils # (1.3-7.7) k/uL Lymphocytes # (1.0-4.8) k/uL PT 23.4 H (9.0-12.0) sec INR 2.4 H (<1.2) Sodium 128 L (137-145) mmol/L Chloride 91 L (98-107) mmol/L Carbon Dioxide 31 H (22-30) mmol/L BUN 27 H (9-20) mg/dL Glucose 129 H (74-99) mg/dL 12/16/20 Range/Units 17:48 WBC 11.0 H (3.8-10.6) k/uL RDW 16.2 H (11.5-15.5) % Neutrophils # 8.2 H (1.3-7.7) k/uL Lymphocytes # 0.9 L (1.0-4.8) k/uL PT (9.0-12.0) sec INR (<1.2) Sodium (137-145) mmol/L Chloride (98-107) mmol/L Carbon Dioxide (22-30) mmol/L BUN (9-20) mg/dL Glucose (74-99) mg/dL <AnatolyDivay Wil - Last Filed: 12/17/20 14:37> Objective - Vital Signs Vital signs: Vital Signs Temp 97.3 F L 12/17/20 11:48 Pulse 62 12/17/20 11:48 Resp 16 12/17/20 11:48 BP 123/68 12/17/20 11:48 Pulse Ox 91 L 12/17/20 11:48 Intake & Output 12/16/20 12/17/20 12/17/20 18:59 06:59 18:59 Intake Total 456 480 Output Total 1650 700 Balance 456 -1650 -220 Weight 73.2 kg 69 kg Intake: Oral 456 480 Output: Urine 1650 700 Other: Voiding Method Urinal Urinal - Labs CBC & Chem 7: 12/16/20 17:48 12/17/20 07:37 Labs: Abnormal Lab Results - Last 24 Hours (Table) 12/16/20 12/17/20 12/17/20 Range/Units 17:48 07:37 07:37 WBC 11.0 H (3.8-10.6) k/uL RDW 16.2 H (11.5-15.5) % Neutrophils # 8.2 H (1.3-7.7) k/uL Lymphocytes # 0.9 L (1.0-4.8) k/uL PT 24.1 H (9.0-12.0) sec INR 2.5 H (<1.2) Sodium 131 L (137-145) mmol/L Chloride 89 L (98-107) mmol/L Carbon Dioxide 36 H (22-30) mmol/L BUN 26 H (9-20) mg/dL Creatinine 1.41 H (0.66-1.25) mg/dL Assessment and Plan Assessment: Patient seen and examined independently. Patient was evaluated by Matt Enciso NP and case was discussed. I am in agreement with subjective, physical exam, assessment and plan as written above and amended below. States his breathing is easier. present at bedside and was evaluated by therapy prior to discharge. Discussed likely home in a.m. General: non toxic, no distress, appears at stated age Derm: warm, dry Head: atraumatic, normocephalic, symmetric Eyes: EOMI, no lid lag, anicteric sclera Mouth: no lip lesion, mucus membranes moist Cardiovascular: S1S2 reg, no murmur, positive posterior tibial pulse bilateral, Lungs: Decreased breath sounds bilateral, no rhonchi, no rales , no accessory muscle use Ext: no gross muscle atrophy, no edema, no contractures
--- NOTE | 2020-12-17 12:20 | PN ---
PROGRESS NOTE Mr. Silva is an 85-year-old male who presented with symptoms of progressive dyspnea and cough as well as peripheral edema. He is feeling much better at this time. His breathing is better. He denies any dizziness palpitation. He has a known history of coronary artery bypass grafting, stage IV lung cancer as well as paroxysmal atrial fibrillation. His ejection fraction on the echocardiogram was 20% to 25%. He continues to be at this time on atorvastatin 40 mg daily, Coreg 3.125 mg twice a day, furosemide 40 mg IV daily, lisinopril 5 mg twice a day in addition to Coumadin. PHYSICAL EXAMINATION: Blood pressure running in the 120s to 140s with a heart rate in 50s. LUNGS: Clear. HEART: Regular rate and rhythm S1, S2. No S3 with systolic murmur. No diastolic murmur. No rub. ABDOMEN: Soft, nontender. EXTREMITIES: No edema. LAB DATA: BUN and creatinine 26 and 1.4. Potassium is 4.0. INR of 2.5. IMPRESSION: 1. Congestive heart failure with severe ischemic cardiomyopathy. 2. Status post coronary artery bypass grafting. 3. Stage IV lung cancer. 4. Paroxysmal atrial fibrillation. RECOMMENDATION: I will switch him to oral diuretics. Follow his renal function. Increase his level activity. If remains stable, I would expect he should be able to be discharged home tomorrow. MMNORMANL / ANGELAN: [id number] /
[2020-12-17] MEDS: FUROSEMIDE 20 MG TAB PO SCH (16:54)
[2020-12-17] MEDS ORDERED: WARFARIN 5 MG TAB PO SCH (18:00)
[2020-12-17] MEDS: PANTOPRAZOLE 40 MG TABLET PO SCH (20:45)
[2020-12-18] MEDS: LEVOTHYROXINE 75 MCG TAB PO SCH (06:57)
[2020-12-18] MEDS: carvediloL 3.125 MG TAB PO SCH (06:58)
[2020-12-18] MEDS: ALBUTEROL NEBULIZED 2.5 MG/3 ML INHALATION SCH ×2 (08:58→11:39)
[2020-12-18] MEDS ORDERED: FUROSEMIDE 10 MG/ML 4 ML VIAL IV SCH (09:00)
[2020-12-18] MEDS: lisinopriL 5 MG TAB PO SCH (09:50)
[2020-12-18] MEDS: ATORVASTATIN 40 MG TAB PO SCH (09:50)
[2020-12-18] MEDS: CHOLECALCIFEROL 25 MCG (1000 IU) TABLET PO SCH (09:50)
[2020-12-18] MEDS: FUROSEMIDE 20 MG TAB PO SCH (09:50)
[2020-12-18 10:40] LABS: Calcium 9.1 mg/dL (8.4-10.2); Potassium 4.5 mmol/L (3.5-5.1)
[2020-12-18 10:55] LABS: INR 2.5 (<1.2); Prothrombin Time 24.4 sec (9.0-12.0)
--- NOTE | 2020-12-18 10:59 | P.DS ---
Providers Date of admission: 12/15/20 03:42 Expected date of discharge: 12/18/20 Attending physician: Yoselin Trimble MD Consults: 12/15/20 03:43 Consult Physician Routine Consulting Provider: Shukri Cisneros Consult Reason/Comments: CHF; Elevated trop Do you want consulting provider notified?: Yes Primary care physician: Nandini Ruiz Hospital Course: Discharge Diagnosis: Acute on chronic systolic heart failure exacerbation Hyponatremia, improved with diuresis Recurrent falls on anticoagulant Atrial fibrillation on anticoagulation with Coumadin and is status post ablation Hypertension Hyperlipidemia Hypothyroidism Stage IV lung cancer Hospital Course: Patient is a very pleasant 85-year-old male with a past medical history including CAD with previous [place] and status post CABG (quadruple bypass), atrial fibrillation on anticoagulation with Coumadin and is status post ablation, hypertension, hyperlipidemia, and stage IV lung cancer. The patient presented to the hospital with a chief complaint of increasing shortness of breath 1 week. Patient just recently took a road trip to [place] and returned 12/13/20. Patient's reports that shortly after arriving to [place] she noticed her experiencing some periods of confusion, falls, and complaints of shortness of breath. Patient's reports this progressively worsened over the last week and has been accompanied by swelling in his lower extremities.which is why she brought him to the hospital for further evaluation. Upon evaluation in the emergency department, an x-ray was completed showing mild interstitial edema with small bilateral pleural effusions. EKG was completed showing normal sinus rhythm at 63 bpm with a first-degree AV block with CO interval of 228 ms and occasional PACs, no significant T-wave or ST abnormalities showing no signs of acute ischemia. Troponin was found to be elevated at 0.037 with repeat troponin of 0.047. ProBNP was 22,500. Sodium 125. CT head also completed which was negative for acute intracranial process. patient was admitted under our services for CHF exacerbation with consultation to cardiology. Echocardiogram completed revealing a severely impaired EF between 20 and 25% with global hypokinesis, moderate to severe aortic valve sclerosis, m oderate mitral and tricuspid valve regurgitation, and moderate pulmonary hypertension. Patient received IV diuresis, was seen and fully evaluated by cardiology whom stopped amlodipine and placed patient on LISA inhibitor lisinopril. Patient cleared by cardiology and is stable for discharge home with his at this time. Patient being discharged home with prescriptions for lisinopril and Lasix and he and his are meeting with Palliative care in their home tomorrow as scheduled and we have arranged for set up of [facility] as well. Physical exam: Patient seen and fully evaluated at the bedside. Shortness of breath has subsided patient has maintain oxygen saturations greater than 92% for greater than 24 hours on room air. Lungs diminished at this time with no rhonchi, rales, or wheezes present this morning. Patient denies having any headache, lightheadedness, dizziness, changes in vision or hearing, chest pain or palpitations, abdominal pain, nausea, vomiting, or experiencing any difficulties in or changes in his urinary function. Lower extremity edema significantly improved. General: non toxic, no distress, appears at stated age Derm: warm, dry. bruising left lateral, temporal region of head, forehead, and jaw Head: atraumatic, normocephalic, symmetric Eyes: no lid lag, anicteric sclera Mouth: no lip lesion, mucus membranes moist Cardiovascular: S1S2 reg, Murmur present, no gallop or rub. Positive posterior tibial pulses. 1+ pitting bilateral lower extremity edema. Lungs: respirations even, regular, and unlabored on room air. Lungs diminished with no noted rhonchi, rales, or wheezes present. Abdominal: Soft, nontender to palpation, no guarding, no appreciable organomegaly Ext: no gross muscle atrophy, no contractures Neuro: CN II-XI grossly intact, no focal neuro deficits Psych: Alert, oriented, appropriate affect A total of 45 minutes of time were spent preparing this complex discharge summary. Patient Condition at Discharge: Serious Plan - Discharge Summary Discharge Rx Participant: No New Discharge Prescriptions: New Atorvastatin [Lipitor] 40 mg PO DAILY 30 Days #30 tab lisinopriL [Zestril] 5 mg PO BID 30 Days #30 tab Furosemide [Lasix] 40 mg PO BID@0900,1600 30 Days #60 tab Continue Warfarin [Coumadin] 5 mg PO SUMOWETHFR Nitroglycerin Sl Tabs [Nitrostat] 0.4 mg SUBLINGUAL Q5M PRN PRN Reason: Chest Pain Vitamin B Complex 1 cap PO DAILY Warfarin [Coumadin] 2.5 mg PO TUSA carvediloL [Coreg] 3.125 mg PO BID Famotidine [Pepcid] 40 mg PO BID Levothyroxine Sodium [Synthroid] 75 mcg PO DAILY Cholecalciferol (Vitamin D3) [Vitamin D3 (3000 Iu)] 75 mcg PO DAILY Discharge Medication List Nitroglycerin Sl Tabs [Nitrostat] 0.4 mg SUBLINGUAL Q5M PRN 04/08/14 [History] Warfarin [Coumadin] 5 mg PO SUMOWETHFR 04/08/14 [History] Vitamin B Complex 1 cap PO DAILY 12/22/18 [History] Cholecalciferol (Vitamin D3) [Vitamin D3 (3000 Iu)] 75 mcg PO DAILY 12/15/20 [History] Famotidine [Pepcid] 40 mg PO BID 12/15/20 [History] Levothyroxine Sodium [Synthroid] 75 mcg PO DAILY 12/15/20 [History] Warfarin [Coumadin] 2.5 mg PO TUSA 12/15/20 [History] carvediloL [Coreg] 3.125 mg PO BID 12/15/20 [History] Atorvastatin [Lipitor] 40 mg PO DAILY 30 Days #30 tab 12/18/20 [Rx] Furosemide [Lasix] 40 mg PO BID@0900,1600 30 Days #60 tab 12/18/20 [Rx] lisinopriL [Zestril] 5 mg PO BID 30 Days #30 tab 12/18/20 [Rx] Follow up Appointment(s)/Referral(s): Shukri Cisneros MD [STAFF PHYSICIAN] - 12/29/20 [facility], [NON-STAFF] - Care,[facility] [NON-STAFF] - Nandini Ruiz MD [Primary Care Provider] - 1-2 days Ambulatory/Diagnostic Orders: Prothrombin Time INR [LAB.AMB] Time Frame: 3 Days, Location: None Selected Activity/Diet/Wound Care/Special Instructions: Activity: As tolerated. Take breaks as needed. Requires supervision. Diet: Heart healthy and carb consistent diet. Avoid salt, or foods with hidden salts. Extra salt makes your heart work harder and traps the fluid in your body for longer. Special Instructions: Weigh yourself every morning after you urinate. If you gain 3 pounds overnight or more than 5 pounds in one week, call your primary physician for guidance on your medications. Keep a log of your weights. Take all of your medications as directed, especially your water pills. NEVER skip a dose. And remember to keep all of your doctor's appointments and follow- up as needed. Elevate your legs when you are not up moving around to help with circulation and prevent swelling. Call your physician if you notice any extra swelling in your legs, ankles, feet or abdomen, if you have a new dry cough, if your shortness of breath worsens with activity or at rest, or if you feel more fatigued. Discharge Disposition: HOME WITH HOME HEALTH SERVICES
[2020-12-18 12:20] VITALS: BP 140/62; PULSE 57; RESP 16; TEMP 98.1
== END 2020-12-18 12:30 | disposition home health service (06) | DRG 292 ==
LOC: EC 00:43 → 3SCARD 03:42
PROVIDERS: ADMIT Internal Medicine; ATTEND Internal Medicine
DX: I11.0 Hypertensive heart disease with heart failure (principal); C34.90 Malignant neoplasm of unspecified part of unspecified bronchus or lung; C77.0 Secondary and unspecified malignant neoplasm of lymph nodes of head, face and neck; E87.1 Hypo-osmolality and hyponatremia; I48.92 Unspecified atrial flutter; I48.0 Paroxysmal atrial fibrillation; I50.23 Acute on chronic systolic (congestive) heart failure; I25.10 Atherosclerotic heart disease of native coronary artery without angina pectoris; K21.9 Gastro-esophageal reflux disease without esophagitis; E78.5 Hyperlipidemia, unspecified; I25.2 Old myocardial infarction; Z95.1 Presence of aortocoronary bypass graft; Z87.891 Personal history of nicotine dependence; Z85.828 Personal history of other malignant neoplasm of skin; Z20.822 Contact with and (suspected) exposure to COVID-19; Z79.01 Long term (current) use of anticoagulants; Z79.890 Hormone replacement therapy; Z79.899 Other long term (current) drug therapy; G90.2 Horner's syndrome; I44.0 Atrioventricular block, first degree; I27.22 Pulmonary hypertension due to left heart disease; E03.9 Hypothyroidism, unspecified; I34.9 Nonrheumatic mitral valve disorder, unspecified; I35.1 Nonrheumatic aortic (valve) insufficiency; I25.5 Ischemic cardiomyopathy
CPT/HCPCS: 36415; 70450; 71046; 71275; 80048; 80053; 83735; 83880; 84484; 85025; 85027; 85610; 85730; 87635; 93005; 93306; 93970; 94640; 94760; 99285

== ENCOUNTER → 2021-01-04 | Outpatient (CLI) | payer MEDICARE, BC ==
--- NOTE | 2021-01-04 15:10 | CT ---
EXAMINATION TYPE: CT brain wo con, CT orbits wo con DATE OF EXAM: 01/04/2021 COMPARISON: 12/15/2020 HISTORY: 85-year-old male chronic left-sided headache. R51, sagittal and onset headache, eye swelling . TECHNIQUE: Examination was done in axial plane without intravenous contrast. Scanning was performed of the head and orbits. Coronal and sagittal reconstructions performed. CT DLP: 1047.10 (accession [id number]), 361.20 (accession [id number]) mGycm Automated exposure control for dose reduction was used. FINDINGS: HEAD: There is no evidence of acute intracranial hemorrhage, acute ischemic changes, mass, mass-effect, or extra-axial fluid collection. There is no effacement of cerebral sulci or basal subarachnoid cister ns. There is no hydrocephalus. There is no midline shift. De Paz-white matter distinction is preserv ed. Mild age-related cerebral cortical and central cerebral volume loss. Atherosclerotic calcifications i n the bilateral carotid siphons and proximal V4 segment right vertebral artery. Mild periventricular white matter hypodensities. Mastoid air cells well pneumatized. ORBITS: No orbital or facial bone fracture identified. Globes appear symmetric. There is new asymmetric prese ptal soft tissue swelling on the left. No intraorbital or retrobulbar soft tissue probably seen. The superior abdominal veins are symmetrical and unremarkable, small in caliber. Mild to moderate mucosal thickening along the floors of the maxillary sinuses and also within the eth moid air cells. Rightward nasal septal deviation. IMPRESSION (brain and orbits): 1. Mild generalized atrophy and mild burden of chronic small vessel ischemic disease, unchanged. No a cute intracranial abnormality seen. 2. No preseptal soft tissue thickening on the left. Correlate for preseptal cellulitis. No postseptal involvement. No other specific abnormality of the orbits and globes by noncontrast CT. 3. Mild to moderate chronic maxillary and ethmoid sinus disease.
== END | disposition home or self-care (01) ==
LOC: RADCTMAIN 14:29
PROVIDERS: ATTEND Family Medicine
DX: I67.82 Cerebral ischemia (principal); J32.4 Chronic pansinusitis
CPT/HCPCS: 70450; 70480

== ENCOUNTER → 2021-01-11 | Outpatient (CLI) | payer MEDICARE, BC ==
[2021-01-11 11:28] LABS: Appearance,Urine Clear (Clear); Bilirubin,Urine Negative (Negative); Blood,Urine Small (Negative); Color,Urine Yellow; Glucose,Urine (UA) Negative (Negative); Ketones,Urine Negative (Negative); Leukocyte Esterase,Urine Negative (Negative); Mucus,Urine Rare /hpf; Nitrite,Urine Negative (Negative); PH, Urine 6.5 (5.0-8.0); Protein,Urine Trace (Negative); RBC,Urine 12 /hpf (0-5); Specific Gravity,Urine 1.018 (1.001-1.035); Urobilinogen,Urine <2.0 mg/dL (<2.0); WBC,Urine 1 /hpf (0-5)
== END | disposition home or self-care (01) ==
LOC: LABWHC1 09:46
PROVIDERS: ATTEND Family Medicine
DX: Z12.5 Encounter for screening for malignant neoplasm of prostate (principal); I44.0 Atrioventricular block, first degree; I45.4 Nonspecific intraventricular block; R94.31 Abnormal electrocardiogram [ECG] [EKG]; R31.9 Hematuria, unspecified
CPT/HCPCS: 36415; 81001; 84153; 87086; 93005

== ENCOUNTER → 2021-01-24 | Outpatient (CLI) | payer MEDICARE, BC ==
--- NOTE | 2021-01-24 14:12 | CT ---
EXAMINATION TYPE: CT brain wo/w con DATE OF EXAM: 01/24/2021 COMPARISON: 01/04/2021 HISTORY: History of lung cancer. Headaches x couple weeks. CT DLP: 2475mGycm CONTRAST: CT scan of the head is performed without and with IV Contrast, patient injected with 100 mL of Isovue M300. Unenhanced followed by contrast enhanced CT of the brain is submitted for evaluation. The ventricles are midline. There is no evidence for intracranial hemorrhage or extra-axial collection. No mass e ffects are identified. Visualized bony calvarium is intact. Contrast is administered and no enhanci ng lesions are detected. No pathologic enhancement is identified. If symptoms persist consider MRI. IMPRESSION: No evidence for acute intracranial process or enhancing lesion.
== END | disposition home or self-care (01) ==
LOC: RADCTMAIN 12:43
PROVIDERS: ATTEND Internal Medicine Hematology & Oncology
DX: R51.9 Headache, unspecified (principal); Z85.118 Personal history of other malignant neoplasm of bronchus and lung
CPT/HCPCS: 82565; 84520; 70470; 36415; Q9967

== ENCOUNTER 2021-02-28 09:53 | Inpatient (IN) | payer MEDICARE, BC ==
[2021-02-28] MEDS ORDERED: SODIUM CHLORIDE 0.9% 500 ML 500 ML IV STA (10:25)
--- NOTE | 2021-02-28 10:29 | ED ---
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 Patient is currently on palliative care according to his . States the patient is also undergoing radiation treatments along with chemotherapy for the past 2 years. She states the patient has not had a bowel movement about 5 days but yesterday he was straining quite a bit and began to have bright red rectal bleeding. States it continues to go even today. Patient is on Coumadin. She denies any prior history of hemorrhoids. states the patient has a swollen tongue for about 3 weeks secondary to metastasis to lymph nodes. is also reporting decreased appetite and weakness. Patient denies any significant abdominal pain nausea vomiting or diarrhea. He denies any chest pain or shortness of breath. Denies any fevers chills. ocologist is Dr Quinteros (Sd Overton) - Related Data Home Medications Medication Instructions Recorded Confirmed Nitroglycerin Sl Tabs [Nitrostat] 0.4 mg SUBLINGUAL Q5M PRN 04/08/14 02/28/21 Cholecalciferol (Vitamin D3) 75 mcg PO DAILY 12/15/20 02/28/21 [Vitamin D3 (3000 Iu)] Famotidine [Pepcid] 40 mg PO BID 12/15/20 02/28/21 Levothyroxine Sodium [Synthroid] 75 mcg PO DAILY 12/15/20 02/28/21 carvediloL [Coreg] 3.125 mg PO BID 12/15/20 02/28/21 Docusate [Colace] 100 mg PO DAILY 02/28/21 02/28/21 Gabapentin [Neurontin] 100 mg PO TID 02/28/21 02/28/21 HYDROcodone/APAP 5-325MG [[place] 1 tab PO DAILY PRN 02/28/21 02/28/21 5-325] Multivitamins, Thera [Multivitamin 1 tab PO DAILY 02/28/21 02/28/21 (formulary)] Previous Rx's Medication Instructions Recorded Rivaroxaban [Xarelto] 15 mg PO W/SUPPER #30 tab 03/02/21 Allergies Allergy/AdvReac Type Severity Reaction Status Date / Time No Known Allergies Allergy Verified 02/28/21 11:39 Review of Systems ROS Other: All systems not noted in ROS Statement are negative. <Sd Overton - Last Filed: 02/28/21 12:46> ROS Other: All systems not noted in ROS Statement are negative. <Whit Moura - Last Filed: 03/03/21 14:27> ROS Statement: Those systems with pertinent positive or pertinent negative responses have been documented in the HPI. Past Medical History Past Medical History: Atrial Fibrillation, Atrial Flutter, Coronary Artery Di sease (CAD), Cancer, Chest Pain / Angina, GERD/Reflux, Hearing Disorder / Deafness, Hyperlipidemia, Hypertension, Liver Disease, Myocardial Infarction (IA), Prostate Disorder, Renal Disease Additional Past Medical History / Comment(s): L lung cancer/metastatic to L side neck with lymph node involvement/has been on IV chemo past 2 years, prostate cancer with prostatectomy, skin cancer with removal neuropathy bilateral lower legs/feet and bilateral hands, CKD stage III, iron anemia, dormant hepatitis C, hypothyroid, pt does not tolerate statins/muscle pain, bilateral tinnitis, TANGIRNAQ bilaterally Last Myocardial Infarction Date:: 1994 History of Any Multi-Drug Resistant Organisms: None Reported Past Surgical History: Cardiac Ablation, Coronary Bypass/CABG, Heart Catheterization, Hernia Repair, Prostate Surgery Additional Past Surgical History / Comment(s): 1994 CABG 3 vessel, prostatectomy, penile implant, L inguinal hernia, skin cancer removed from nose/back, bilateral cataract removals. Past Anesthesia/Blood Transfusion Reactions: No Reported Reaction Additional Past Anesthesia/Blood Transfusion Reaction / Comment(s): no known hx blood transfusions or complications Past Psychological History: No Psychological Hx Reported Smoking Status: Former smoker - Past Family History Father Family Medical History: Cancer Additional Family Medical History / Comment(s): Pt/spouse cannot recall type. Mother Additional Family Medical History / Comment(s): Mother was an alcoholic. She had an enlarged heart. <Sd Overton - Last Filed: 02/28/21 12:46> General Exam Limitations: no limitations General appearance: alert, in no apparent distress Head exam: Present: atraumatic, normocephalic, normal inspection Eye exam: Present: normal appearance, PERRL, EOMI Pupils: Present: normal accommodation ENT exam: Present: normal exam, normal oropharynx, mucous membranes moist Neck exam: Present: normal inspection, full ROM. Absent: tenderness Respiratory exam: Present: normal lung sounds bilaterally. Absent: respiratory distress, wheezes, rales, rhonchi, stridor Cardiovascular Exam: Present: regular rate, normal rhythm, normal heart sounds. Absent: systolic murmur GI/Abdominal exam: Present: soft. Absent: distended, tenderness, guarding, rebound, rigid Rectal exam: Present: normal inspection, normal rectal tone, bloody stool. Abs ent: hemorrhoids Extremities exam: Present: normal inspection, full ROM, normal capillary refill Back exam: Present: normal inspection, full ROM. Absent: tenderness Neurological exam: Present: alert, oriented X3 Psychiatric exam: Present: normal affect, normal mood Skin exam: Present: warm, dry, intact, normal color <Sd Overton - Last Filed: 02/28/21 12:46> Course Vital Signs 02/28/21 02/28/21 02/28/21 10:01 11:45 13:00 Temperature 97.7 F Pulse Rate 48 L 71 69 Respiratory 18 20 18 Rate Blood Pressure 119/54 125/63 121/61 O2 Sat by Pulse 96 96 97 Oximetry 02/28/21 16:26 Temperature 97.7 F Pulse Rate 69 Respiratory 18 Rate Blood Pressure 121/61 O2 Sat by Pulse 97 Oximetry Medical Decision Making - Lab Data Result diagrams: 02/28/21 10:55 02/28/21 10:55 <Sd Overton - Last Filed: 02/28/21 12:46> - Lab Data Result diagrams: 03/03/21 08:16 03/02/21 07:37 <Whit Moura - Last Filed: 03/03/21 14:27> - Medical Decision Making 85-year-old male with history of stage IV lung cancer 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 On physical examination, no abdominal tenderness. No signs of hemorrhoids. He does have some bloody stool. But no melena. Hemoglobin of 15.5. Leukocytosis of 17,000. Blood cultures were initiated. Treatment with Rocephin. I do not have a source of this at this time. Elevated INR of 7.4. Patient is currently on Coumadin. This will be held for the time being. Elevated BUN and creatinine of 64 and 1.30, respectively. This is likely secondary to decreased appetite and oral intake.elevated troponin is 0.61. Patient did also have an elevated troponin on the last 2 most recent laboratory draws. The family's wishes and the patient is to be DO NOT RESUSCITATE. I spoke to BLANCA Gutierrez who will admit for . Case was discussed with Oncology consult (Sd Overton) I was available for consultation in the emergency department. The history and physical exam were done by the midlevel provider. I was consulted for this patients care. I reviewed the case with the midlevel provider and based on their presentation of the patient, I agree with the assessment, medical decision making and plan of care as documented. Chart was dictated using [employer] dictation software. Attempts were made to correct any dictation errors however some typographical errors may persist. Patient was seen during a national state of emergency due to the Covid-19 june laurence. (Whit Moura) - Lab Data Lab Results 02/28/21 02/28/21 02/28/21 Range/Units 10:55 10:55 10:55 WBC 17.6 H (3.8-10.6) k/uL RBC 5.52 (4.30-5.90) m/uL Hgb 15.5 (13.0-17.5) gm/dL Hct 47.2 (39.0-53.0) % MCV 85.5 (80.0-100.0) fL MCH 28.1 (25.0-35.0) pg MCHC 32.9 (31.0-37.0) g/dL RDW 17.4 H (11.5-15.5) % Plt Count 224 (150-450) k/uL MPV 8.1 Neutrophils % 85 % Lymphocytes % 5 % Monocytes % 6 % Eosinophils % 0 % Basophils % 0 % Neutrophils # 14.9 H (1.3-7.7) k/uL Lymphocytes # 0.9 L (1.0-4.8) k/uL Monocytes # 1.1 H (0-1.0) k/uL Eosinophils # 0.0 (0-0.7) k/uL Basophils # 0.1 (0-0.2) k/uL Hypochromasia Slight Poikilocytosis Slight Anisocytosis Slight PT 72.3 H (9.0-12.0) sec INR 7.4 H* (<1.2) APTT 46.2 H (22.0-30.0) sec Sodium 134 L (137-145) mmol/L Potassium 4.7 (3.5-5.1) mmol/L Chloride 94 L (98-107) mmol/L Carbon Dioxide 29 (22-30) mmol/L Anion Gap 11 mmol/L BUN 64 H (9-20) mg/dL Creatinine 1.28 H (0.66-1.25) mg/dL Est GFR (CKD-EPI)AfAm 59 (>60 ml/min/1.73 sqM) Est GFR (CKD-EPI)NonAf 51 (>60 ml/min/1.73 sqM) Glucose 148 H (74-99) mg/dL Plasma Lactic Acid Bennie (0.7-2.0) mmol/L Calcium 10.2 (8.4-10.2) mg/dL Magnesium 2.3 (1.6-2.3) mg/dL Total Bilirubin 1.0 (0.2-1.3) mg/dL AST 86 H (17-59) U/L ALT 42 (4-49) U/L Alkaline Phosphatase 166 H (38-126) U/L Troponin I (0.000-0.034) ng/mL Total Protein 7.5 (6.3-8.2) g/dL Albumin 4.1 (3.5-5.0) g/dL 02/28/21 02/28/21 Range/Units 10:55 10:55 WBC (3.8-10.6) k/uL RBC (4.30-5.90) m/uL Hgb (13.0-17.5) gm/dL Hct (39.0-53.0) % MCV (80.0-100.0) fL MCH (25.0-35.0) pg MCHC (31.0-37.0) g/dL RDW (11.5-15.5) % Plt Count (150-450) k/uL MPV Neutrophils % % Lymphocytes % % Monocytes % % Eosinophils % % Basophils % % Neutrophils # (1.3-7.7) k/uL Lymphocytes # (1.0-4.8) k/uL Monocytes # (0-1.0) k/uL Eosinophils # (0-0.7) k/uL Basophils # (0-0.2) k/uL Hypochromasia Poikilocytosis Anisocytosis PT (9.0-12.0) sec INR (<1.2) APTT (22.0-30.0) sec Sodium (137-145) mmol/L Potassium (3.5-5.1) mmol/L Chloride (98-107) mmol/L Carbon Dioxide (22-30) mmol/L Anion Gap mmol/L BUN (9-20) mg/dL Creatinine (0.66-1.25) mg/dL Est GFR (CKD-EPI)AfAm (>60 ml/min/1.73 sqM) Est GFR (CKD-EPI)NonAf (>60 ml/min/1.73 sqM) Glucose (74-99) mg/dL Plasma Lactic Acid Bennie 1.8 (0.7-2.0) mmol/L Calcium (8.4-10.2) mg/dL Magnesium (1.6-2.3) mg/dL Total Bilirubin (0.2-1.3) mg/dL AST (17-59) U/L ALT (4-49) U/L Alkaline Phosphatase (38-126) U/L Troponin I 0.061 H* (0.000-0.034) ng/mL Total Protein (6.3-8.2) g/dL Albumin (3.5-5.0) g/dL - EKG Data EKG Comments: Sinus rhythm with occasional PVC Ventricular rate 79, IL 166, QRS 118, QTC 460. (Sd Overton) Disposition Is patient prescribed a controlled substance at d/c from ED?: No Time of Disposition: 12:49 <dS Overton - Last Filed: 02/28/21 12:46> <Whit Moura - Last Filed: 03/03/21 14:27> Clinical Impression: Elevated INR, Elevated troponin, Rectal bleeding Disposition: ADMITTED IP TO THIS HOSP Condition: Stable
[2021-02-28 11:12] LABS: Anisocytosis Slight; Basophils # (A) 0.1 k/uL (0-0.2); Basophils % (A) 0 %; Eosinophils % (A) 0 %; HCT 47.2 % (39.0-53.0); HGB 15.5 gm/dL (13.0-17.5); Hypochromasia Slight; Lymphocytes # (A) 0.9 k/uL (1.0-4.8); Lymphocytes % (A) 5 %; MCH 28.1 pg (25.0-35.0); MCHC 32.9 g/dL (31.0-37.0); MCV 85.5 fL (80.0-100.0); Mean Platelet Volume 8.1; Monocytes # (A) 1.1 k/uL (0-1.0); Monocytes % (A) 6 %; Neutrophils # (A) 14.9 k/uL (1.3-7.7); Neutrophils % (A) 85 %; Platelet Count 224 k/uL (150-450); Poikilocytosis Slight; RBC 5.52 m/uL (4.30-5.90); RDW 17.4 % (11.5-15.5); WBC 17.6 k/uL (3.8-10.6)
[2021-02-28 11:19] LABS: Albumin 4.1 g/dL (3.5-5.0); Calcium 10.2 mg/dL (8.4-10.2); Magnesium 2.3 mg/dL (1.6-2.3); Potassium 4.7 mmol/L (3.5-5.1); Total Protein 7.5 g/dL (6.3-8.2)
[2021-02-28] MEDS ORDERED: cefTRIAXone IN SWFI 1,000 MG/10 ML SYRINGE IVP STA (11:22)
[2021-02-28 11:32] LABS: Partial Thromboplastin Time 46.2 sec (22.0-30.0); Prothrombin Time 72.3 sec (9.0-12.0)
[2021-02-28 11:35] LABS: INR 7.4 (<1.2)
[2021-02-28] MEDS ORDERED: ONDANSETRON 4 MG/2 ML VIAL IVP PRN (12:41)
[2021-02-28] MEDS ORDERED: NALOXONE 0.4 MG/ML 1 ML VIAL IV PRN (12:41)
[2021-02-28] MEDS: SODIUM CHLORIDE 0.9% 1,000 ML IV SCH (14:32)
[2021-02-28] MEDS ORDERED: PHYTONADIONE 5 MG in SODIUM CHLORIDE 0.9% 50 ML IVPB ONE (14:45)
--- NOTE | 2021-02-28 14:54 | XR ---
EXAMINATION TYPE: XR KUB DATE OF EXAM: 02/28/2021 COMPARISON: NONE HISTORY: Pain TECHNIQUE: Single supine KUB image of the abdomen is obtained FINDINGS: Small bowel demonstrates no evidence for dilatation or air fluid levels. Gas and fecal material is seen in non-distended colon. No convincing evidence for pneumoperitoneum. No unusual calcifications. The lung bases are clear. The osseous structures are intact. IMPRESSION: 1. Overall nonobstructive bowel gas pattern.
--- NOTE | 2021-02-28 14:56 | XR ---
EXAMINATION TYPE: XR chest 1V portable DATE OF EXAM: 02/28/2021 HISTORY: Shortness of breath. COMPARISON: 12/15/2020 TECHNIQUE: Single view of the chest is submitted. FINDINGS: Demonstrated are scattered senescent parenchymal change. There is no evidence for focal infiltrate. The heart is stable. Hilar and mediastinal structures are within normal limits. Degenerative changes are seen of the dorsal spine. IMPRESSION: 1. Chronic changes without evidence for acute pulmonary disease.
[2021-02-28 16:22] LABS: Anisocytosis Slight; HCT 44.7 % (39.0-53.0); HGB 14.6 gm/dL (13.0-17.5); MCH 27.9 pg (25.0-35.0); MCHC 32.7 g/dL (31.0-37.0); MCV 85.4 fL (80.0-100.0); Platelet Count 159 k/uL (150-450); RBC 5.23 m/uL (4.30-5.90); RDW 16.6 % (11.5-15.5); WBC 13.1 k/uL (3.8-10.6)
[2021-02-28] MEDS: GABAPENTIN 100 MG CAP PO SCH ×2 (18:40→20:33)
[2021-02-28] MEDS: carvediloL 3.125 MG TAB PO SCH (18:40)
[2021-02-28] MEDS: NYSTATIN 100,000 UNIT/ML SUSP 500,000 UNIT/5 ML CUP PO SCH ×2 (18:43→18:45)
--- NOTE | 2021-02-28 19:12 | P.HPIM ---
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 The patient presented to the hospital with a chief complaint of increasing weakness 1 week and rectal bleeding 2 days. Patient just completed 5 session course of radiation therapy on Friday02/21/21. He was seen and fully evaluated in the emergency department and found to have a critically el evated INR of 7.4, Leukocytosis with WBC count of 17.6 with a left shift, ÁNGEL with BUN 64, creatinine 1.28, and GFR 51 (baseline creatinine 0.98), elevated liver enzymes with AST of 86 and alkaline phosphatase of 166, and an elevated troponin of 0.061. Patient was given a prophylactic dose of Rocephin in the emergency department and then admitted under our services for lower GI bleed. Patient seen and fully assessed at bedside in the ER. Rectal exam completed with no obvious external hemorrhoids or fissures noted. Patient was noted to have active oozing bright red blood from rectum. Patient denies any abdominal pain or discomfort. Order placed for vitamin K 5 mg IVPB and repeat INR to be completed at 10 PM. May consider administration of FFP if hemoglobin drops and/or bleeding increases. Currently hemoglobin stable at 15.5. Patient denies having any history of GI bleeds in the past, he and at bedside state Review of systems: Pertinent positives and negatives as discussed in HPI, a complete review of systems was performed and all other systems are negative. Physical exam: General: non toxic, no distress, appears at stated age Derm: warm, dry. bruising left lateral, temporal region of head, forehead, and jaw Head: atraumatic, normocephalic, symmetric Eyes: no lid lag, anicteric sclera Mouth: no lip lesion, mucus membranes moist, tongue swollen with white scaly thrush, left-sided facial droop ( reports secondary to metastatic process and radiation treatment) Cardiovascular: S1S2 reg, Murmur present, no gallop or rub. Positive posterior tibial pulses. No lower extremity edema. Lungs: Respirations even, regular, and unlabored on room air. Lungs diminished with no noted rhonchi, rales, or wheezes present. Abdominal: Soft, nontender to palpation, no guarding, no appreciable organomegaly GI/: Rectal exam completed with no obvious external hemorrhoids or fissures noted. Patient was noted to have active oozing bright red blood from rectum. Ext: no gross muscle atrophy, no contractures Neuro: CN II-XI grossly intact, no focal neuro deficits Psych: Alert, oriented, appropriate affect Assessment and Plan of Care: Lower GI bleed -Critically elevated INR 7.4, vitamin K 5 mg IVP be administered -Consult Gastroenterology. -KUB showing overall nonobstructive bowel gas pattern -Monitor H&H every 6 hours x 4 and transfuse as needed for hemoglobin less than 8. -Protonix 40 mg IVP twice daily. -Nothing by mouth until cleared by GI. -Continued gentle hydration with 0.9% normal. -SCDs for DVT prophylaxis. Chronic systolic heart failure with a severely impaired EF of 20-25% -At this time we have to hold Lasix secondary to active lower GI bleed and need for gentle hydration. -We will provide very gentle hydration with IV fluids at 50 mL's per hour and monitor closely for any signs/symptoms of fluid volume overload. -Daily weights Chest x-ray showing chronic changes without evidence for acute pulmonary disease Elevated troponin, flat and decreasing not-consistent with acute coronary syndrome -Possibly secondary to chronic systolic heart failure vs radiation treatment vs demand ischemia -0.061 with repeat of 0.036 -EKG revealing sinus rhythm with frequent PVCs and PACs Atrial fibrillation on anticoagulation with Coumadin and is status post ablation -INR 7.4, Coumadin held and vitamin K administered. Hypertension -Monitor vital signs and continue daily medication regimen. Hyperlipidemia -Continue daily medication regimen. Hypothyroidism Continue daily medication regimen with levothyroxine. Stage IV lung cancer -Oncology consulted -Symptomatic care and pain management The patient is admitted with an anticipated greater than 2 midnight stay for evaluation of lower GI bleed. Surrogate decision-maker: Patient's at bedside CODE STATUS: DO NOT RESUSCITATE/DO NOT INTUBATE DVT prophylaxis: SCDs Discussed with: Patient, patient's , and patient's son Anticipated discharge date: Clinical course to determine Anticipated discharge place: Home with home care A total of 50 minutes was spent on the care of this complex patient more than 50% of the time was spent in counseling and care coordination. Past Medical History Past Medical History: Atrial Fibrillation, Atrial Flutter, Coronary Artery Disease (CAD), Cancer, Chest Pain / Angina, GERD/Reflux, Hearing Disorder / Deafness, Hyperlipidemia, Hypertension, Liver Disease, Myocardial Infarction ([place]), Prostate Disorder, Renal Disease Additional Past Medical History / Comment(s): L lung cancer/metastatic to L side neck with lymph node involvement/has been on IV chemo past 2 years, prostate cancer with prostatectomy, skin cancer with removal neuropathy bilateral lower legs/feet and bilateral hands, CKD stage III, iron anemia, dormant hepatitis C, hypothyroid, pt does not tolerate statins/muscle pain, bilateral tinnitis, COCOPAH bilaterally Last Myocardial Infarction Date:: 1994 History of Any Multi-Drug Resistant Organisms: None Reported Past Surgical History: Cardiac Ablation, Coronary Bypass/CABG, Heart Catheterization, Hernia Repair, Prostate Surgery Additional Past Surgical History / Comment(s): 1994 CABG 3 vessel, prostate ctomy, penile implant, L inguinal hernia, skin cancer removed from nose/back, bilateral cataract removals. Past Anesthesia/Blood Transfusion Reactions: No Reported Reaction Additional Past Anesthesia/Blood Transfusion Reaction / Comment(s): no known hx blood transfusions or complications Past Psychological History: No Psychological Hx Reported Smoking Status: Former smoker - Past Family History Father Family Medical History: Cancer Additional Family Medical History / Comment(s): Pt/spouse cannot recall type. Mother Additional Family Medical History / Comment(s): Mother was an alcoholic. She had an enlarged heart. Medications and Allergies Home Medications Medication Instructions Recorded Confirmed Type Nitroglycerin Sl Tabs [Nitrostat] 0.4 mg SUBLINGUAL Q5M PRN 04/08/14 02/28/21 History Warfarin [Coumadin] 5 mg PO SUMOWETHFR 04/08/14 02/28/21 History Cholecalciferol (Vitamin D3) 75 mcg PO DAILY 12/15/20 02/28/21 History [Vitamin D3 (3000 Iu)] Famotidine [Pepcid] 40 mg PO BID 12/15/20 02/28/21 History Levothyroxine Sodium [Synthroid] 75 mcg PO DAILY 12/15/20 02/28/21 History Warfarin [Coumadin] 2.5 mg PO TUSA 12/15/20 02/28/21 History carvediloL [Coreg] 3.125 mg PO BID 12/15/20 02/28/21 History Docusate [Colace] 100 mg PO DAILY 02/28/21 02/28/21 History Furosemide [Lasix] 40 mg PO BID@0900,1600 02/28/21 02/28/21 History Gabapentin [Neurontin] 100 mg PO TID 02/28/21 02/28/21 History HYDROcodone/APAP 5-325MG [[place] 1 tab PO DAILY PRN 02/28/21 02/28/21 History 5-325] Multivitamins, Thera [Multivitamin 1 tab PO DAILY 02/28/21 02/28/21 History (formulary)] Allergies Allergy/AdvReac Type Severity Reaction Status Date / Time No Known Allergies Allergy Verified 02/28/21 11:39 Physical Exam Vitals: Vital Signs Temp Pulse Resp BP Pulse Ox 02/28/21 11:45 71 20 125/63 96 02/28/21 10:01 97.7 F 48 L 18 119/54 96 Intake and Output 02/27/21 02/28/21 02/28/21 22:59 06:59 14:59 Other: Weight 61.689 kg Results CBC & Chem 7: 02/28/21 15:45 02/28/21 10:55 Labs: Abnormal Lab Results - Last 24 Hours (Table) 02/28/21 02/28/21 02/28/21 Range/Units 10:55 10:55 10:55 WBC 17.6 H (3.8-10.6) k/uL RDW 17.4 H (11.5-15.5) % Neutrophils # 14.9 H (1.3-7.7) k/uL Lymphocytes # 0.9 L (1.0-4.8) k/uL Monocytes # 1.1 H (0-1.0) k/uL PT 72.3 H (9.0-12.0) sec INR 7.4 H* (<1.2) APTT 46.2 H (22.0-30.0) sec Sodium 134 L (137-145) mmol/L Chloride 94 L (98-107) mmol/L BUN 64 H (9-20) mg/dL Creatinine 1.28 H (0.66-1.25) mg/dL Glucose 148 H (74-99) mg/dL AST 86 H (17-59) U/L Alkaline Phosphatase 166 H (38-126) U/L Troponin I (0.000-0.034) ng/mL 02/28/21 Range/Units 10:55 WBC (3.8-10.6) k/uL RDW (11.5-15.5) % Neutrophils # (1.3-7.7) k/uL Lymphocytes # (1.0-4.8) k/uL Monocytes # (0-1.0) k/uL PT (9.0-12.0) sec INR (<1.2) APTT (22.0-30.0) sec Sodium (137-145) mmol/L Chloride (98-107) mmol/L BUN (9-20) mg/dL Creatinine (0.66-1.25) mg/dL Glucose (74-99) mg/dL AST (17-59) U/L Alkaline Phosphatase (38-126) U/L Troponin I 0.061 H* (0.000-0.034) ng/mL <Divya Ledbetter - Last Filed: 02/28/21 20:19> History of Present Illness Patient seen and examined independently. Patient was also seen by Matt Enciso NP and case was discussed. I am in agreement with subjective, physical exam, assessment and plan as written above and amended below. Patient reports he is having liquid bowel movements are brown, he is having pain with each bowel movement and some bright red blood. He was constipated for 4 or 5 days and took some MiraLAX yesterday. He has had decreased oral intake. He is having difficulty with swallowing secondary to recent radiation. We have extensive discussion that he likely has a hemorrhoidal bleed. We also discussed that Coumadin is very sensitive to changes in diet and he likely is supratherapeutic secondary to decreased food intake that contains vitamin K. We discussed the possibility of discharge home on Eliquis or Xarelto and patient's family is agreeable to this plan of care. Will check with case management for bracing. General: Ill-appearing, frail, no distress, appears at stated age Derm: warm, dry Head: atraumatic, normocephalic, symmetric Eyes: EOMI, no lid lag, anicteric sclera Mouth: no lip lesion, mucus membranes dry Cardiovascular: S1S2 reg, no murmur, positive posterior tibial pulse bilateral, Lungs: Coarse breath sounds bilateral bilateral, no rhonchi, no rales , no accessory muscle use Abdominal: soft, nontender to palpation, no guarding, no appreciable organomegaly Psych: Alert, oriented, appropriate affect Physical Exam Osteopathic Statement: *. No significant issues noted on an osteopathic str uctural exam other than those noted in the History and Physical/Consult. Vitals: Vital Signs Temp Pulse Pulse Resp BP BP Pulse Ox 02/28/21 18:30 97.1 F L 79 18 173/78 94 L 02/28/21 16:26 97.7 F 69 18 121/61 97 02/28/21 13:00 69 18 121/61 97 02/28/21 11:45 71 20 125/63 96 02/28/21 10:01 97.7 F 48 L 18 119/54 96 Intake and Output 02/28/21 02/28/21 02/28/21 06:59 14:59 22:59 Intake Total 0 Balance 0 Intake: Oral 0 Other: Weight 61.689 kg Results CBC & Chem 7: 02/28/21 15:45 02/28/21 10:55 Labs: Abnormal Lab Results - Last 24 Hours (Table) 02/28/21 02/28/21 02/28/21 Range/Units 10:55 10:55 10:55 WBC 17.6 H (3.8-10.6) k/uL RDW 17.4 H (11.5-15.5) % Neutrophils # 14.9 H (1.3-7.7) k/uL Lymphocytes # 0.9 L (1.0-4.8) k/uL Monocytes # 1.1 H (0-1.0) k/uL PT 72.3 H (9.0-12.0) sec INR 7.4 H* (<1.2) APTT 46.2 H (22.0-30.0) sec Sodium 134 L (137-145) mmol/L Chloride 94 L (98-107) mmol/L BUN 64 H (9-20) mg/dL Creatinine 1.28 H (0.66-1.25) mg/dL Glucose 148 H (74-99) mg/dL AST 86 H (17-59) U/L Alkaline Phosphatase 166 H (38-126) U/L Troponin I (0.000-0.034) ng/mL 02/28/21 02/28/21 02/28/21 Range/Units 10:55 15:45 15:45 WBC 13.1 H (3.8-10.6) k/uL RDW 16.6 H (11.5-15.5) % Neutrophils # (1.3-7.7) k/uL Lymphocytes # (1.0-4.8) k/uL Monocytes # (0-1.0) k/uL PT (9.0-12.0) sec INR (<1.2) APTT (22.0-30.0) sec Sodium (137-145) mmol/L Chloride (98-107) mmol/L BUN (9-20) mg/dL Creatinine (0.66-1.25) mg/dL Glucose (74-99) mg/dL AST (17-59) U/L Alkaline Phosphatase (38-126) U/L Troponin I 0.061 H* 0.036 H* (0.000-0.034) ng/mL
[2021-02-28] MEDS: PANTOPRAZOLE 40 MG/10 ML VIAL IV SCH (20:33)
[2021-02-28] MEDS: MAG HYDROX/AL HYDROX/SIMETH 30 ML, LIDOCAINE VISCOUS 30 ML, diphenhydrAMINE ELIXIR 75 M... PO SCH ×4 (21:18)
[2021-02-28 22:47] LABS: Anisocytosis Slight; HCT 40.9 % (39.0-53.0); HGB 13.6 gm/dL (13.0-17.5); MCH 28.3 pg (25.0-35.0); MCHC 33.2 g/dL (31.0-37.0); MCV 85.2 fL (80.0-100.0); Mean Platelet Volume 9.4; Platelet Count 154 k/uL (150-450); RDW 16.9 % (11.5-15.5); WBC 12.2 k/uL (3.8-10.6)
[2021-02-28 22:51] LABS: INR 2.7 (<1.2); Prothrombin Time 26.1 sec (9.0-12.0)
[2021-03-01 03:10] LABS: Anisocytosis Slight; HCT 41.4 % (39.0-53.0); HGB 13.8 gm/dL (13.0-17.5); MCH 28.2 pg (25.0-35.0); MCHC 33.2 g/dL (31.0-37.0); Mean Platelet Volume 7.8; Platelet Count 184 k/uL (150-450); RBC 4.88 m/uL (4.30-5.90); RDW 16.9 % (11.5-15.5); WBC 13.3 k/uL (3.8-10.6)
[2021-03-01] MEDS: carvediloL 3.125 MG TAB PO SCH ×2 (06:41→16:50)
[2021-03-01] MEDS: LEVOTHYROXINE 75 MCG TAB PO SCH (06:41)
[2021-03-01 08:30] LABS: Anisocytosis Slight; HCT 41.2 % (39.0-53.0); HGB 13.9 gm/dL (13.0-17.5); MCH 28.6 pg (25.0-35.0); MCHC 33.8 g/dL (31.0-37.0); MCV 84.7 fL (80.0-100.0); Platelet Count 154 k/uL (150-450); RBC 4.87 m/uL (4.30-5.90); RDW 16.8 % (11.5-15.5)
[2021-03-01] MEDS: CHOLECALCIFEROL 25 MCG (1000 IU) TABLET PO SCH (08:35)
[2021-03-01] MEDS: PANTOPRAZOLE 40 MG/10 ML VIAL IV SCH ×2 (08:36→20:18)
[2021-03-01] MEDS: GABAPENTIN 100 MG CAP PO SCH ×3 (08:36→20:18)
[2021-03-01] MEDS: MAG HYDROX/AL HYDROX/SIMETH 30 ML, LIDOCAINE VISCOUS 30 ML, diphenhydrAMINE ELIXIR 75 M... PO SCH ×12 (08:37→20:18)
[2021-03-01] MEDS: MULTIVITAMINS, THERA 1 EACH TAB PO SCH (08:37)
[2021-03-01 08:39] LABS: Albumin 3.3 g/dL (3.5-5.0); Calcium 9.5 mg/dL (8.4-10.2); Magnesium 2.2 mg/dL (1.6-2.3); Potassium 3.8 mmol/L (3.5-5.1); Total Bilirubin 1.2 mg/dL (0.2-1.3); Total Protein 6.5 g/dL (6.3-8.2)
[2021-03-01 08:54] LABS: INR 1.7 (<1.2); Prothrombin Time 16.7 sec (9.0-12.0)
[2021-03-01] MEDS ORDERED: PANTOPRAZOLE 40 MG/10 ML VIAL IV SCH (09:00)
--- NOTE | 2021-03-01 11:29 | P.CRDCN ---
History of Present Illness Consult date: 03/01/21 History of present illness: HISTORY OF PRESENT ILLNESS: This is a 85 year old male with a past medical history significant for coronary artery disease with previous CABG x 4 and stenting, systolic congestive heart failure with EF 20-25%, hypertension, hyperlipidemia, and atrial fibrillation with previous ablation, and stage IV lung cancer. Patient follows in the office with Dr. Cisneros. We have been asked to see the patient in consultation for abnormal troponins. Patient examined at the bedside. Patient presented to the hospital due rectal bleeding. Patient was found to supratherapeutic INR of 7.4. Patient received Vitamin K. He currently denies chest pain or pressure. Denies shortness of breath. Vital signs are stable. EKG reveals sinus mechanism with PVCs. Left axis deviation. Incomplete left bundle branch block. Chest xray chronic changes without evidence for acute pulmonary disease. Laboratory data: WBC 16.0. Hemoglobin 13.9. Platelet count 154. INR 1.7. Sodium 135. Potassium 3.8. BUN 49. Creatinine 0.93. Troponin 0.061. 0.036. 0.039. 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 Moderate tricuspid regurgitation, moderate pulmonary hypertension with RVSP of 54.38mmHg Cardiac catheterization history: October 2018 revealing severe 2 vessel coronary artery disease involving the LAD and RCA. Patent SAMANIEGO to LAD. Patent SVG to RCA. Mild disease involving left circumflex coronary artery. REVIEW OF SYSTEMS: At the time of my exam: CONSTITUTIONAL: Denies fever or chills. HEENT: Denies blurred vision, vision changes, or eye pain. Denies hemoptysis CARDIOVASCULAR: Denies chest pain. Denies orthopnea. Denies PND. Denies palpitations RESPIRATORY: Denies shortness of breath. GASTROINTESTINAL: Denies abdominal pain. Denies nausea or vomiting. HEMATOLOGIC: Denies bleeding disorders. GENITOURINARY: Denies any blood in urine. SKIN: Denies pruitis. Denies rash. PHYSICAL EXAM: VITAL SIGNS: Reviewed. GENERAL: Well-developed in no acute distress. HEENT: Head is normocephalic. Pupils are equal, round. Sclerae anicteric. Mucous membranes of the mouth are moist. Neck supple. No JVD or thyromegaly LUNGS: Respirations even and unlabored. Lungs essentially clear to auscultation bilaterally. HEART: Regular rate and rhythm. S1 and S2 heard. ABDOMEN: Soft. Nondistended. Nontender. EXTREMITIES: Normal range of motion. No clubbing or cyanosis. Peripheral pulses intact. No lower extremity edema NEUROLOGIC: Awake and alert. Oriented x 3. ASSESSMENT: Lower GI bleed Supratherapeutic INR Chronic systolic congestive heart failure, ejection fraction 2024% Coronary artery disease with previous CABG 4 and stenting Abnormal troponins, not suggestive of acute coronary syndrome Hypertension Hyperlipidemia Paroxysmal atrial fibrillation with previous ablation, on anticoagulation with Coumadin Stage IV lung CVA PLAN: No need to repeat echo as this was performed in December 2020 Hold Coumadin. Monitor INR. GI following Continue additional cardiac medications Further recommendations pending patient course Nurse practitioner note has been reviewed by physician. Signing provider agrees with the documented findings, assessment, and plan of care. Past Medical History Past Medical History: Atrial Fibrillation, Atrial Flutter, Coronary Artery Disease (CAD), Cancer, Chest Pain / Angina, GERD/Reflux, Hearing Disorder / Deafness, Hyperlipidemia, Hypertension, Liver Disease, Myocardial Infarction ([place]), Prostate Disorder, Renal Disease Additional Past Medical History / Comment(s): L lung cancer/metastatic to L side neck with lymph node involvement/has been on IV chemo past 2 years, prostate cancer with prostatectomy, skin cancer with removal neuropathy bilateral lower legs/feet and bilateral hands, CKD stage III, iron anemia, dormant hepatitis C, hypothyroid, pt does not tolerate statins/muscle pain, bilateral tinnitis, [place] bilaterally Last Myocardial Infarction Date:: 1994 History of Any Multi-Drug Resistant Organisms: None Reported Past Surgical History: Cardiac Ablation, Coronary Bypass/CABG, Heart Catheterization, Hernia Repair, Prostate Surgery Additional Past Surgical History / Comment(s): 1994 CABG 3 vessel, prostatectomy, penile implant, L inguinal hernia, skin cancer removed from n ose/back, bilateral cataract removals. Past Anesthesia/Blood Transfusion Reactions: No Reported Reaction Additional Past Anesthesia/Blood Transfusion Reaction / Comment(s): no known hx blood transfusions or complications Past Psychological History: No Psychological Hx Reported Smoking Status: Former smoker - Past Family History Father Family Medical History: Cancer Additional Family Medical History / Comment(s): Pt/spouse cannot recall type. Mother Additional Family Medical History / Comment(s): Mother was an alcoholic. She had an enlarged heart. Medications and Allergies Home Medications Medication Instructions Recorded Confirmed Type Nitroglycerin Sl Tabs [Nitrostat] 0.4 mg SUBLINGUAL Q5M PRN 04/08/14 02/28/21 History Warfarin [Coumadin] 5 mg PO SUMOWETHFR 04/08/14 02/28/21 History Cholecalciferol (Vitamin D3) 75 mcg PO DAILY 12/15/20 02/28/21 History [Vitamin D3 (3000 Iu)] Famotidine [Pepcid] 40 mg PO BID 12/15/20 02/28/21 History Levothyroxine Sodium [Synthroid] 75 mcg PO DAILY 12/15/20 02/28/21 History Warfarin [Coumadin] 2.5 mg PO TUSA 12/15/20 02/28/21 History carvediloL [Coreg] 3.125 mg PO BID 12/15/20 02/28/21 History Docusate [Colace] 100 mg PO DAILY 02/28/21 02/28/21 History Furosemide [Lasix] 40 mg PO BID@0900,1600 02/28/21 02/28/21 History Gabapentin [Neurontin] 100 mg PO TID 02/28/21 02/28/21 History HYDROcodone/APAP 5-325MG [[place] 1 tab PO DAILY PRN 02/28/21 02/28/21 History 5-325] Multivitamins, Thera [Multivitamin 1 tab PO DAILY 02/28/21 02/28/21 History (formulary)] Allergies Allergy/AdvReac Type Severity Reaction Status Date / Time No Known Allergies Allergy Verified 02/28/21 11:39 Physical Exam Vitals: Vital Signs Temp Pulse Pulse Resp BP BP Pulse Ox 03/01/21 08:00 98.1 F 72 18 143/62 92 L 03/01/21 04:00 70 18 150/50 90 L 03/01/21 02:00 54 L 18 03/01/21 00:00 54 L 18 154/54 90 L 02/28/21 20:00 77 18 137/63 94 L 02/28/21 18:30 97.1 F L 79 18 173/78 94 L 02/28/21 16:26 97.7 F 69 18 121/61 97 02/28/21 13:00 69 18 121/61 97 02/28/21 11:45 71 20 125/63 96 Intake and Output 02/28/21 03/01/21 03/01/21 22:59 06:59 14:59 Intake Total 0 0 Balance 0 0 Intake: Oral 0 0 Other: Weight 62.5 kg Results 03/01/21 07:55 03/01/21 07:55 Cardiac Enzymes 02/28/21 02/28/21 02/28/21 Range/Units 10:55 10:55 15:45 AST 86 H (17-59) U/L Troponin I 0.061 H* 0.036 H* (0.000-0.034) ng/mL 02/28/21 03/01/21 Range/Units 19:41 07:55 AST 75 H (17-59) U/L Troponin I 0.039 H* (0.000-0.034) ng/mL Coagulation 02/28/21 02/28/21 03/01/21 Range/Units 10:55 22:35 07:55 PT 72.3 H 26.1 H 16.7 H (9.0-12.0) sec APTT 46.2 H (22.0-30.0) sec CBC 02/28/21 02/28/21 03/01/21 Range/Units 15:45 22:35 02:34 WBC 13.1 H 12.2 H 13.3 H (3.8-10.6) k/uL RBC 5.23 4.80 4.88 (4.30-5.90) m/uL Hgb 14.6 13.6 13.8 (13.0-17.5) gm/dL Hct 44.7 40.9 41.4 (39.0-53.0) % Plt Count 159 154 184 (150-450) k/uL 03/01/21 Range/Units 07:55 WBC 16.0 H (3.8-10.6) k/uL RBC 4.87 (4.30-5.90) m/uL Hgb 13.9 (13.0-17.5) gm/dL Hct 41.2 (39.0-53.0) % Plt Count 154 (150-450) k/uL Comprehensive Metabolic Panel 02/28/21 03/01/21 Range/Units 10:55 07:55 Sodium 134 L 135 L (137-145) mmol/L Potassium 4.7 3.8 (3.5-5.1) mmol/L Chloride 94 L 101 (98-107) mmol/L Carbon Dioxide 29 27 (22-30) mmol/L BUN 64 H 49 H (9-20) mg/dL Creatinine 1.28 H 0.93 (0.66-1.25) mg/dL Glucose 148 H 119 H (74-99) mg/dL Calcium 10.2 9.5 (8.4-10.2) mg/dL AST 86 H 75 H (17-59) U/L ALT 42 43 (4-49) U/L Alkaline Phosphatase 166 H 141 H (38-126) U/L Total Protein 7.5 6.5 (6.3-8.2) g/dL Albumin 4.1 3.3 L (3.5-5.0) g/dL Current Medications Generic Name Dose Route Start Last Admin Trade Name Freq PRN Reason Stop Dose Admin Carvedilol 3.125 mg 02/28/21 17:30 03/01/21 06:41 Carvedilol 3.125 Mg Tab PO 3.125 mg BID-W/MEALS JIGNA Administration Cholecalciferol 75 mcg 03/01/21 09:00 03/01/21 08:35 Cholecalciferol 25 Mcg (1000 Iu) Tablet PO 75 mcg DAILY JIGNA Administration Al Hydroxide/Mg Hydroxide 30 0 ml 02/28/21 22:00 03/01/21 08:37 ml/ Lidocaine HCl 30 ml/ PO 5 ml Diphenhydramine HCl 75 mg/ TID JIGNA Administration Nystatin 3,000,000 unit Gabapentin 100 mg 02/28/21 16:00 03/01/21 08:36 Gabapentin 100 Mg Cap PO 100 mg TID JIGNA Administration Sodium Chloride 1,000 mls @ 50 mls/hr 02/28/21 12:45 02/28/21 14:32 Saline 0.9% IV 75 mls/hr .Q20H JIGNA Administration Levothyroxine Sodium 75 mcg 03/01/21 06:30 08/19/21 06:41 Levothyroxine 75 Mcg Tab PO 75 mcg 0630 JIGNA Administration Multivitamins 1 each 03/01/21 09:00 03/01/21 08:37 Multivitamins, Thera 1 Each Tab PO Not Given DAILY JIGNA Naloxone HCl 0.2 mg 02/28/21 12:41 Naloxone 0.4 Mg/Ml 1 Ml Vial IV Q2M PRN Opioid Reversal Ondansetron HCl 4 mg 02/28/21 12:41 Ondansetron 4 Mg/2 Ml Vial IVP Q8HR PRN Nausea And Vomiting Pantoprazole Sodium 40 mg 02/28/21 21:00 03/01/21 08:36 Pantoprazole 40 Mg/10 Ml Vial IV 40 mg BID JIGNA Administration Intake and Output 02/28/21 03/01/21 03/01/21 22:59 06:59 14:59 Intake Total 0 0 Balance 0 0 Intake: Oral 0 0 Other: Weight 62.5 kg 03/01/21 07:55 03/01/21 07:55
--- NOTE | 2021-03-01 11:42 | P.PN ---
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 The patient presented to the hospital with a chief complaint of increasing weakness 1 week and rectal bleeding 2 days. Patient just completed 5 session course of radiation therapy on Friday02/21/21. He was seen and fully evaluated in the emergency department and found to have a critically elevated INR of 7.4, Leukocytosis with WBC count of 17.6 with a left shift, ÁNGEL with BUN 64, creatinine 1.28, and GFR 51 (baseline creatinine 0.98), elevated liver enzymes with AST of 86 and alkaline phosphatase of 166, and an elevated troponin of 0.061. Patient was given a prophylactic dose of Rocephin in the emergency department and then admitted under our services for lower GI bleed. Patient seen and fully assessed at bedside in the ER. Rectal exam completed with no obvious external hemorrhoids or fissures noted. Patient was noted to have active oozing bright red blood from rectum. Patient denies any abdominal pain or discomfort. Order placed for vitamin K 5 mg IVPB and repeat INR to be completed at 10 PM. May consider administration of FFP if hemoglobin drops and/or bleeding increases. Currently hemoglobin stable at 15.5. Patient denies having any history of GI bleeds in the past. 03/01/21: Patient was seen and fully evaluated at the bedside this morning. His INR has decreased to therapeutic levels at 2.7. Hemoglobin stable at 13.9. Per at bedside patient has been having brown pasty stools but denies any noted blood or dark tarry coloration in the stool. Patient denies having any complaints of pain or discomfort. He reports persistent weakness, but denies having any headache, lightheadedness, dizziness, chest pain, palpitations, or shortness of breath. Physical exam: General: non toxic, no distress, appears at stated age Derm: warm, dry. bruising left lateral, temporal region of head, forehead, and jaw Head: atraumatic, normocephalic, symmetric Eyes: no lid lag, anicteric sclera Mouth: no lip lesion, mucus membranes moist, tongue swollen with white scaly thrush, left-sided facial droop ( reports secondary to metastatic process and radiation treatment) Cardiovascular: S1S2 reg, Murmur present, no gallop or rub. Positive posterior tibial pulses. No lower extremity edema. Lungs: Respirations even, regular, and unlabored on room air. Lungs diminished with no noted rhonchi, rales, or wheezes present. Abdominal: Soft, nontender to palpation, no guarding, no appreciable organom egaly Ext: no gross muscle atrophy, no contractures Neuro: CN II-XI grossly intact, no focal neuro deficits Psych: Alert, oriented, appropriate affect Assessment and Plan of Care: Lower GI bleed -Critically elevated INR 7.4, vitamin K was administered. Repeat INR in therapeutic range at 2.7. We will continue to hold Coumadin pending GI consult and recommendations. -Consult Gastroenterology. -KUB showing overall nonobstructive bowel gas pattern -Monitor H&H every 6 hours x 4 and transfuse as needed for hemoglobin less than 8, hemoglobin currently stable at 13.9. -Protonix 40 mg IVP twice daily. -Nothing by mouth until cleared by GI. -Continued gentle hydration with 0.9% normal saline at 50 mL/hr -Hold Coumadin and SCDs for DVT prophylaxis. Sore throat with thrush -Likely secondary to recent radiation therapy. -Order placed for Cool's solution consisting of Maalox, viscous lidocaine, Benadryl, and nystatin. Chronic systolic heart failure with a severely impaired EF of 20-25% -At this time we have to hold Lasix secondary to active lower GI bleed and need for gentle hydration. -We will provide very gentle hydration with IV fluids at 50 mL's per hour and monitor closely for any signs/symptoms of fluid volume overload. -Daily weights -Chest x-ray showing chronic changes without evidence for acute pulmonary di sease Elevated troponins, flat and decreasing not-consistent with acute coronary syndrome -Possibly secondary to chronic systolic heart failure vs recent radiation treatments vs demand ischemia -0.061 with repeat of 0.036 and 0.039 -EKG revealing sinus rhythm with frequent PVCs and PACs Atrial fibrillation on anticoagulation with Coumadin and is status post ablation -INR 7.4, Coumadin held and vitamin K administered. Repeat INR 2.7. Hypertension -Monitor vital signs and continue daily medication regimen. Hyperlipidemia -Continue daily medication regimen. Hypothyroidism Continue daily medication regimen with levothyroxine. Stage IV lung cancer -Oncology consulted -Symptomatic care and pain management -May consider nutrition consult once patient is cleared by GI and is no longer NPO. CODE STATUS: DO NOT RESUSCITATE/DO NOT INTUBATE DVT prophylaxis: SCDs Discussed with: Patient, patient's , and RN Anticipated discharge date: Clinical course to determine Anticipated discharge place: Home with home care A total of 40 minutes was spent on the care of this complex patient more than 50% of the time was spent in counseling and care coordination. Objective - Vital Signs Vital signs: Vital Signs Temp 97.1 F L 02/28/21 18:30 Pulse 70 03/01/21 04:00 Resp 18 03/01/21 04:00 BP 150/50 03/01/21 04:00 Pulse Ox 90 L 03/01/21 04:00 Intake & Output 02/28/21 03/01/21 03/01/21 18:59 06:59 18:59 Intake Total 0 Balance 0 Weight 61.689 kg 62.5 kg Intake: Oral 0 - Labs CBC & Chem 7: 03/01/21 07:55 03/01/21 07:55 Labs: Abnormal Lab Results - Last 24 Hours (Table) 02/28/21 02/28/21 02/28/21 Range/Units 10:55 10:55 10:55 WBC 17.6 H (3.8-10.6) k/uL RDW 17.4 H (11.5-15.5) % Neutrophils # 14.9 H (1.3-7.7) k/uL Lymphocytes # 0.9 L (1.0-4.8) k/uL Monocytes # 1.1 H (0-1.0) k/uL PT 72.3 H (9.0-12.0) sec INR 7.4 H* (<1.2) APTT 46.2 H (22.0-30.0) sec Sodium 134 L (137-145) mmol/L Chloride 94 L (98-107) mmol/L BUN 64 H (9-20) mg/dL Creatinine 1.28 H (0.66-1.25) mg/dL Glucose 148 H (74-99) mg/dL AST 86 H (17-59) U/L Alkaline Phosphatase 166 H (38-126) U/L Troponin I (0.000-0.034) ng/mL Albumin (3.5-5.0) g/dL 02/28/21 02/28/21 02/28/21 Range/Units 10:55 15:45 15:45 WBC 13.1 H (3.8-10.6) k/uL RDW 16.6 H (11.5-15.5) % Neutrophils # (1.3-7.7) k/uL Lymphocytes # (1.0-4.8) k/uL Monocytes # (0-1.0) k/uL PT (9.0-12.0) sec INR (<1.2) APTT (22.0-30.0) sec Sodium (137-145) mmol/L Chloride (98-107) mmol/L BUN (9-20) mg/dL Creatinine (0.66-1.25) mg/dL Glucose (74-99) mg/dL AST (17-59) U/L Alkaline Phosphatase (38-126) U/L Troponin I 0.061 H* 0.036 H* (0.000-0.034) ng/mL Albumin (3.5-5.0) g/dL 02/28/21 02/28/21 02/28/21 Range/Units 19:41 22:35 22:35 WBC 12.2 H (3.8-10.6) k/uL RDW 16.9 H (11.5-15.5) % Neutrophils # (1.3-7.7) k/uL Lymphocytes # (1.0-4.8) k/uL Monocytes # (0-1.0) k/uL PT 26.1 H (9.0-12.0) sec INR 2.7 H (<1.2) APTT (22.0-30.0) sec Sodium (137-145) mmol/L Chloride (98-107) mmol/L BUN (9-20) mg/dL Creatinine (0.66-1.25) mg/dL Glucose (74-99) mg/dL AST (17-59) U/L Alkaline Phosphatase (38-126) U/L Troponin I 0.039 H* (0.000-0.034) ng/mL Albumin (3.5-5.0) g/dL 03/01/21 03/01/21 03/01/21 Range/Units 02:34 07:55 07:55 WBC 13.3 H 16.0 H (3.8-10.6) k/uL RDW 16.9 H 16.8 H (11.5-15.5) % Neutrophils # (1.3-7.7) k/uL Lymphocytes # (1.0-4.8) k/uL Monocytes # (0-1.0) k/uL PT (9.0-12.0) sec INR (<1.2) APTT (22.0-30.0) sec Sodium 135 L (137-145) mmol/L Chloride (98-107) mmol/L BUN 49 H (9-20) mg/dL Creatinine (0.66-1.25) mg/dL Glucose 119 H (74-99) mg/dL AST 75 H (17-59) U/L Alkaline Phosphatase 141 H (38-126) U/L Troponin I (0.000-0.034) ng/mL Albumin 3.3 L (3.5-5.0) g/dL <Divya Ledbetter - Last Filed: 03/01/21 18:53> Subjective Patient seen and examined independently. Patient was also seen by Matt Enciso NP and case was discussed. I am in agreement with subjective, physical exam, assessment and plan as written above and amended below. He is sleeping. He thinks his throat is doing somewhat better. Son at bedside and all questions answered. General: non toxic, no distress, appears at stated age Derm: warm, dry Head: atraumatic, normocephalic, symmetric Eyes: EOMI, no lid lag, anicteric sclera Mouth: Mucous membranes dry, thrush and swath noted at the back of his throat. Cardiovascular: S1S2 regular with systolic ejection murmur, positive posterior tibial pulse bilateral, Lungs: Coarse breath sounds bilateral, no rhonchi, no rales , no accessory muscle use Abdominal: soft, nontender to palpation, no guarding, no appreciable organomegaly Ext: no gross muscle atrophy, no edema, no contractures Neuro: CN II-XI grossly intact, no focal neuro deficits Psych: Alert, oriented, appropriate affect Objective - Vital Signs Vital signs: Vital Signs Temp 98.1 F 03/01/21 08:00 Pulse 72 03/01/21 16:00 Resp 18 03/01/21 16:00 BP 139/67 03/01/21 16:00 Pulse Ox 95 03/01/21 16:00 Intake & Output 02/28/21 03/01/21 03/01/21 18:59 06:59 18:59 Intake Total 0 0 Balance 0 0 Weight 61.689 kg 62.5 kg 62.5 kg Intake: Oral 0 0 - Labs CBC & Chem 7: 03/01/21 18:02 03/01/21 07:55 Labs: Abnormal Lab Results - Last 24 Hours (Table) 02/28/21 02/28/21 02/28/21 Range/Units 19:41 22:35 22:35 WBC 12.2 H (3.8-10.6) k/uL RDW 16.9 H (11.5-15.5) % Neutrophils # (1.3-7.7) k/uL Lymphocytes # (1.0-4.8) k/uL Monocytes # (0-1.0) k/uL PT 26.1 H (9.0-12.0) sec INR 2.7 H (<1.2) Sodium (137-145) mmol/L BUN (9-20) mg/dL Glucose (74-99) mg/dL AST (17-59) U/L Alkaline Phosphatase (38-126) U/L Troponin I 0.039 H* (0.000-0.034) ng/mL Albumin (3.5-5.0) g/dL 03/01/21 03/01/21 03/01/21 Range/Units 02:34 07:55 07:55 WBC 13.3 H (3.8-10.6) k/uL RDW 16.9 H (11.5-15.5) % Neutrophils # (1.3-7.7) k/uL Lymphocytes # (1.0-4.8) k/uL Monocytes # (0-1.0) k/uL PT 16.7 H (9.0-12.0) sec INR 1.7 H (<1.2) Sodium 135 L (137-145) mmol/L BUN 49 H (9-20) mg/dL Glucose 119 H (74-99) mg/dL AST 75 H (17-59) U/L Alkaline Phosphatase 141 H (38-126) U/L Troponin I (0.000-0.034) ng/mL Albumin 3.3 L (3.5-5.0) g/dL 03/01/21 03/01/21 Range/Units 07:55 18:02 WBC 16.0 H 15.5 H (3.8-10.6) k/uL RDW 16.8 H 17.0 H (11.5-15.5) % Neutrophils # 13.2 H (1.3-7.7) k/uL Lymphocytes # 0.8 L (1.0-4.8) k/uL Monocytes # 1.1 H (0-1.0) k/uL PT (9.0-12.0) sec INR (<1.2) Sodium (137-145) mmol/L BUN (9-20) mg/dL Glucose (74-99) mg/dL AST (17-59) U/L Alkaline Phosphatase (38-126) U/L Troponin I (0.000-0.034) ng/mL Albumin (3.5-5.0) g/dL Microbiology - Last 24 Hours (Table) 02/28/21 12:15 Blood Culture - Preliminary Blood No Growth after 24 hours 02/28/21 12:30 Blood Culture - Preliminary Blood No Growth after 24 hours
[2021-03-01 13:50] VITALS: BMI 20.3
--- NOTE | 2021-03-01 15:46 | FL ---
EXAMINATION TYPE: FL barium swallow w video DATE OF EXAM: 03/01/2021 CLINICAL HISTORY: 85-year-old male right-sided head and neck cancer status post radiation therapy, gu rgling after eating, Dysphagia. TECHNIQUE: Deglutition study is performed utilizing thin liquid barium, honey and nectar thick liqui d barium, barium thick applesauce, and barium coated cracker. COMPARISON: None. Total fluoroscopy time: 3 minutes 46 seconds Total images: None. Real-time fluoroscopy support was provided to speech pathology. FINDINGS: There is limited anterior movement of the hyoid bone. We note prominent anterior endplate spondylosis at C4-C6 causing mild narrowing of the upper esophagus along with a slightly tight cricopharyngeus. There is minimal persistent penetration noted. No deep penetration or aspiration seen. Significant ph aryngeal residuals are also noted. IMPRESSION: Significant pharyngeal residuals and limited anterior movement of the hyoid bone. Minimal persistent penetration. No deep penetration or aspiration. Please refer to speech therapist notes for further details if necessary.
--- NOTE | 2021-03-01 15:54 | P.CONS ---
History of Present Illness - Reason for Consult Consult date: 03/01/21 Rectal bleed Requesting physician: Matt Enciso - Chief Complaint Rectal bleed - History of Present Illness This a pleasant 85-year-old white male who presented to the emergency department yesterday with complaints of rectal bleeding. His states he started having rectal bleeding 2 days ago following an episode of one week long complaints of constipation. Patient was getting some laxatives and once he started having bowel movement they noticed small amounts of bright red blood from the rectum with wiping. The patient has a past medical history of stage IV lung cancer, coronary artery disease with previous NC and stent placement status post CABG, history of congestive heart failure, hypertension, and atrial fibrillation on anticoagulation with Coumadin and status post ablation. Patient recently completed 5 sessions of radiation therapy last week. He has been following with Dr. Smallwood. On initial evaluation in the emergency department he was found to pimentel ve an elevated INR of 7.4 and was given vitamin K 5 mg IV. Today's labs show WBC 13, hemoglobin 13.8, hematocrit 41, platelet count 184,000, total bilirubin 1.0, alkaline phosphatase 166, AST 86, ALT 42. Repeat INR 1.7. Patient's states he had a colonoscopy 4 years ago and told he no longer needed them. He also underwent an EGD in January [address] gutierrez with findings of mild gastritis. Patient's states he had not been eating for at least 1 week due to increased swelling of his face, neck and tongue related to radiation. Today the patient had a loose bowel movement but no bleeding. He denies any abdominal pain, nausea, or vomiting. Review of Systems REVIEW OF SYSTEMS: CARDIOPULMONARY: No chest pain or shortness of breath. Gastrointestinal: No abdominal pain. Patient has been having difficulty swallowing due to radiation therapy on neck. No nausea or vomiting. No hematemesis, coffee-ground emesis. Recent constipation given laxative, subsequent loose stool with small amount of bright red blood. GENITOURINARY: No dysuria or hematuria. MUSCULOSKELETAL: Reports normal range of motion., Joint pain. SKIN: No rashes. No jaundice. ENDOCRINE: No chills, fevers. No excessive weight gain or loss. No polydipsia or polyuria. PSYCHIATRIC: Unremarkable. NEUROLOGY: No change in mental status. Denies dizziness, headache. ENT: Vision unremarkable. CONSTITUTIONAL: Decreased oral intake, increased weight loss, weakness, and fatigue. Past Medical History Past Medical History: Atrial Fibrillation, Atrial Flutter, Coronary Artery Disease (CAD), Cancer, Chest Pain / Angina, GERD/Reflux, Hearing Disorder / Deafness, Hyperlipidemia, Hypertension, Liver Disease, Myocardial Infarction (NC), Prostate Disorder, Renal Disease Additional Past Medical History / Comment(s): L lung cancer/metastatic to L side neck with lymph node involvement/has been on IV chemo past 2 years, prostate cancer with prostatectomy, skin cancer with removal neuropathy bilateral lower legs/feet and bilateral hands, CKD stage III, iron anemia, dormant hepatitis C, hypothyroid, pt does not tolerate statins/muscle pain, bilateral tinnitis, MAKAH bilaterally Last Myocardial Infarction Date:: 1994 History of Any Multi-Drug Resistant Organisms: None Reported Past Surgical History: Cardiac Ablation, Coronary Bypass/CABG, Heart Catheterization, Hernia Repair, Prostate Surgery Additional Past Surgical History / Comment(s): 1994 CABG 3 vessel, prostatectomy, penile implant, L inguinal hernia, skin cancer removed from nose/back, bilateral cataract removals. Past Anesthesia/Blood Transfusion Reactions: No Reported Reaction Additional Past Anesthesia/Blood Transfusion Reaction / Comm: no known hx blood transfusions or complications Past Psychological History: No Psychological Hx Reported Smoking Status: Former smoker - Past Family History Father Family Medical History: Cancer Additional Family Medical History / Comment(s): Pt/spouse cannot recall type. Mother Additional Family Medical History / Comment(s): Mother was an alcoholic. She had an enlarged heart. Medications and Allergies Home Medications Medication Instructions Recorded Confirmed Type Nitroglycerin Sl Tabs [Nitrostat] 0.4 mg SUBLINGUAL Q5M PRN 04/08/14 02/28/21 History Warfarin [Coumadin] 5 mg PO SUMOWETHFR 04/08/14 02/28/21 History Cholecalciferol (Vitamin D3) 75 mcg PO DAILY 12/15/20 02/28/21 History [Vitamin D3 (3000 Iu)] Famotidine [Pepcid] 40 mg PO BID 12/15/20 02/28/21 History Levothyroxine Sodium [Synthroid] 75 mcg PO DAILY 12/15/20 02/28/21 History Warfarin [Coumadin] 2.5 mg PO TUSA 12/15/20 02/28/21 History carvediloL [Coreg] 3.125 mg PO BID 12/15/20 02/28/21 History Docusate [Colace] 100 mg PO DAILY 02/28/21 02/28/21 History Furosemide [Lasix] 40 mg PO BID@0900,1600 02/28/21 02/28/21 History Gabapentin [Neurontin] 100 mg PO TID 02/28/21 02/28/21 History HYDROcodone/APAP 5-325MG [[place] 1 tab PO DAILY PRN 02/28/21 02/28/21 History 5-325] Multivitamins, Thera [Multivitamin 1 tab PO DAILY 02/28/21 02/28/21 History (formulary)] Allergies Allergy/AdvReac Type Severity Reaction Status Date / Time No Known Allergies Allergy Verified 02/28/21 11:39 Physical Exam Vitals: Vital Signs Temp Pulse Pulse Resp BP BP Pulse Ox 03/01/21 12:00 67 18 104/72 98 03/01/21 08:00 98.1 F 72 18 143/62 92 L 03/01/21 04:00 70 18 150/50 90 L 03/01/21 02:00 54 L 18 03/01/21 00:00 54 L 18 154/54 90 L 02/28/21 20:00 77 18 137/63 94 L 02/28/21 18:30 97.1 F L 79 18 173/78 94 L 02/28/21 16:26 97.7 F 69 18 121/61 97 Intake and Output 03/01/21 03/01/21 03/01/21 06:59 14:59 22:59 Intake Total 0 Balance 0 Intake: Oral 0 Other: Weight 62.5 kg 62.5 kg General appearance: The patient is alert, oriented, appears in no acute distress. Thin. HET: Head is normocephalic and atraumatic. Conjunctiva pink. Sclera anicteric. Neck: Supple without lymphadenopathy. Trachea midline. Heart: S1 S2. Regular rate and rhythm. Lungs: Clear to auscultation. Abdomen: Soft, thin, nontender, nondistended with bowel sounds. No guarding or rigidity. Skin: No rashes. No jaundice. Extremities: Normal skin color and turgor. No pedal edema. Neurological: No focal deficits. Alert and oriented 3.. Results CBC & Chem 7: 03/01/21 07:55 03/01/21 07:55 Labs: Abnormal Lab Results - Last 24 Hours (Table) 02/28/21 02/28/21 02/28/21 Range/Units 15:45 15:45 19:41 WBC 13.1 H (3.8-10.6) k/uL RDW 16.6 H (11.5-15.5) % PT (9.0-12.0) sec INR (<1.2) Sodium (137-145) mmol/L BUN (9-20) mg/dL Glucose (74-99) mg/dL AST (17-59) U/L Alkaline Phosphatase (38-126) U/L Troponin I 0.036 H* 0.039 H* (0.000-0.034) ng/mL Albumin (3.5-5.0) g/dL 02/28/21 02/28/21 03/01/21 Range/Units 22:35 22:35 02:34 WBC 12.2 H 13.3 H (3.8-10.6) k/uL RDW 16.9 H 16.9 H (11.5-15.5) % PT 26.1 H (9.0-12.0) sec INR 2.7 H (<1.2) Sodium (137-145) mmol/L BUN (9-20) mg/dL Glucose (74-99) mg/dL AST (17-59) U/L Alkaline Phosphatase (38-126) U/L Troponin I (0.000-0.034) ng/mL Albumin (3.5-5.0) g/dL 03/01/21 03/01/21 03/01/21 Range/Units 07:55 07:55 07:55 WBC 16.0 H (3.8-10.6) k/uL RDW 16.8 H (11.5-15.5) % PT 16.7 H (9.0-12.0) sec INR 1.7 H (<1.2) Sodium 135 L (137-145) mmol/L BUN 49 H (9-20) mg/dL Glucose 119 H (74-99) mg/dL AST 75 H (17-59) U/L Alkaline Phosphatase 141 H (38-126) U/L Troponin I (0.000-0.034) ng/mL Albumin 3.3 L (3.5-5.0) g/dL Microbiology - Last 24 Hours (Table) 02/28/21 12:15 Blood Culture - Preliminary Blood No Growth after 24 hours 02/28/21 12:30 Blood Culture - Preliminary Blood No Growth after 24 hours Assessment and Plan (1) Rectal bleeding Narrative/Plan: This is an 85-year-old male who presented to the emergency department with complaints of weakness and rectal bleeding for the last 2 days duration. The patient has multiple comorbidities including lung cancer with metastasis who recently underwent radiation therapy finishing 5 sessions last week. He also has a history of atrial fibrillation on Coumadin. Patient's states he has not been eating for the last 1 week duration, he has also been suffering from constipation and was given a laxative. He had a couple loose stools mixed with small amount of blood following the laxative. As part of his workup in the emergency department he was found to have an INR of 7.4, he was given vitamin K. His repeat INR is now 1.7. His hemoglobin is stable at 13.8. He has had a loose stool today, however Y states there was no blood in the stool. He denies any abdominal pain, nausea, or vomiting. Coumadin has been discontinued. Likely dealing with possible hemorrhoidal bleed due to constipation and diarrhea with supratherapeutic INR. The patient has had no further rectal bleeding. No plans on endoscopic evaluation. Continue to hold Coumadin. Recommend daily bowel regimen such as MiraLAX. Current Visit: Yes Status: Acute Code(s): K62.5 - HEMORRHAGE OF ANUS AND RECTUM SNOMED Code(s): 75004706 (2) History of lung cancer Current Visit: Yes Status: Acute Code(s): Z85.118 - PERSONAL HISTORY OF MALIGNANT NEOPLASM OF BRONCHUS AND LUNG SNOMED Code(s): 003949727 (3) Elevated INR Current Visit: Yes Status: Acute Code(s): R79.1 - ABNORMAL COAGULATION PROFILE SNOMED Code(s): 651164965 (4) History of atrial fibrillation Narrative/Plan: Was on Coumadin, currently on hold. Current Visit: Yes Status: Acute Code(s): Z86.79 - PERSONAL HISTORY OF OTHER DISEASES OF THE CIRCULATORY SYSTEM SNOMED Code(s): 346587611 Plan: 1. Diet per recommendations from speech therapy 2. MiraLAX daily as needed 3. Continue to hold anticoagulation 4. No plans on endoscopic evaluation as patient is no longer having rectal bleeding, likely due to elevated INR, possible hemorrhoidal in nature Thank you for this consultation, we will be on standby. Patient is otherwise cleared by gastroenterology for discharge. Dr. Eloy Carrington I agree with the dictator's note, documented as a scribe by Birdie Moya.
--- NOTE | 2021-03-01 16:06 | P.CONS ---
History of Present Illness - Reason for Consult Consult date: 03/01/21 Metastatic Lung Cancer - Chief Complaint Rectal bleeding and failure to thrive, no po intake - History of Present Illness Lung Cancer Follow Up Visit HPI : This is a very nice patient who presented with palpable left neck mass,for about 6 months duration,he was evaluated by Dr Rivera,on 12/23/2018,he had a CT scan of neck/chest which revealed multiple enlarged and new left cervical nodes and supraclavicular node,9mm LLL spiculated lung nodule with suggestion of pleural effusion. On 01/02/2019,PET scan revealed suspicious uptake in multiple large left cervical/submandibular and supraclavicular nodes,no suspicious uptake in LLL,otherwise negative PET scan. On 01/04/2019,U/S guided biopsy of cervical node was positive for poorly differentiated adenocarcinoma,IHC were not specific but consistent with either lung origin or upper GI,EGD on 01/22/2019 was negative. PDL-1 was negative,nextgen sequencing revealed PIK3CA and TP53 mutation,MSI- stable. On 02/19/2019,he started carboplatin/taxol/tecentriq.(no asvastin due to concern about tolerance). On 04/10/2019,repeat PET scan revealed improvement in the SUV uptake in left cervical nodes. He completed 4 cycles of carbo/taxol/tecentriq on 04/23/2019 On 05/14/2019,he started maintenance tecentrip On 06/09/2019,repeat PET scan revealed mild,stable uptake in cervical nodes. On 09/04/2019,repeat PET scan revealed disease progression in multiple left cervical nodes (I reviewed it with radilogist) He started gemzar on 09/14/2019. Repeat PET scan on 11/19/2019 revealed improvement in metabolic uptake in cervical nodes. Repeat PET scan on 02/11/2020 revealed small area of small uptake in left rib,otherwise stable Bone scan on 02/24/2020,also revealed a small focus of uptake in the same rib,otherwise negative.(? trauma,it was decided to watch it) On 05/12/2020,repeat PET scan revealed stable finding. On 08/04/2020,repeat PET scan revealed stable disease (reviewed with radiologists,Dr Ron and Dr Edmonds) On 09/09/2020,he had the COVID vaccine,2 days later,he started feeling weak,SOB,his treatment was held . CT scan of chest/abdomen/pelvis on 09/27/[address] scan of neck on 09/29/2020 revealed significant progression in cervical nodes. He initially decided to proceed with alimta,then he decided to wait and for now,he is currently on palliative care at home. On 01/24/2021,CT scan of brain was negative for metastatic disease. He feels more tired,weaker,has worsening left sided neck pain radiating up to his head,has difficulty swollowing,was recently started on norco by Dr Bhatti,he sleeps most of the day,he has had headaches for 2 weeks,[facility]%,continues to have his chronic numbness,his appetite is not good,his INR is therapeutic today At last visit with primary oncologist he discussed his Overall,he is decling. The left cervical nodes are larger,has worsening pain. We discussed adding gabapentin to help his pain and they agreed. We also discussed palliative radiation therapy to his neck,they agreed,I discussed his care with rad/onc,Dr Porter,he will see him soon. I again discussed hospice care,they don't want to proceed with it now,he currently has palliative care at home. He presents for rectal bleeding and coagulopathy - he is not eating and admits to not eating the past 4-5 days. Still with dysphagia, his supratherapeutic INR likely a result of vitamin K deficiency from not eating. This has been discussed with patient and , as well as cardiology who has agreed to stop his warfarin at this time. Review of Systems ROS unobtainable: due to mental status All systems: negative Past Medical History Past Medical History: Atrial Fibrillation, Atrial Flutter, Coronary Artery Disease (CAD), Cancer, Chest Pain / Angina, GERD/Reflux, Hearing Disorder / Deafness, Hyperlipidemia, Hypertension, Liver Disease, Myocardial Infarction ([place]), Prostate Disorder, Renal Disease Additional Past Medical History / Comment(s): L lung cancer/metastatic to L side neck with lymph node involvement/has been on IV chemo past 2 years, prostate cancer with prostatectomy, skin cancer with removal neuropathy bilateral lower legs/feet and bilateral hands, CKD stage III, iron anemia, dormant hepatitis C, hypothyroid, pt does not tolerate statins/muscle pain, bilateral tinnitis, [place] bilaterally Last Myocardial Infarction Date:: 1994 History of Any Multi-Drug Resistant Organisms: None Reported Past Surgical History: Cardiac Ablation, Coronary Bypass/CABG, Heart Catheterization, Hernia Repair, Prostate Surgery Additional Past Surgical History / Comment(s): 1994 CABG 3 vessel, prostatectomy, penile implant, L inguinal hernia, skin cancer removed from nose/back, bilateral cataract removals. Past Anesthesia/Blood Transfusion Reactions: No Reported Reaction Additional Past Anesthesia/Blood Transfusion Reaction / Comm: no known hx blood transfusions or complications Past Psychological History: No Psychological Hx Reported Smoking Status: Former smoker - Past Family History Father Family Medical History: Cancer Additional Family Medical History / Comment(s): Pt/spouse cannot recall type. Mother Additional Family Medical History / Comment(s): Mother was an alcoholic. She had an enlarged heart. Medications and Allergies Home Medications Medication Instructions Recorded Confirmed Type Nitroglycerin Sl Tabs [Nitrostat] 0.4 mg SUBLINGUAL Q5M PRN 04/08/14 02/28/21 History Warfarin [Coumadin] 5 mg PO SUMOWETHFR 04/08/14 02/28/21 History Cholecalciferol (Vitamin D3) 75 mcg PO DAILY 12/15/20 02/28/21 History [Vitamin D3 (3000 Iu)] Famotidine [Pepcid] 40 mg PO BID 12/15/20 02/28/21 History Levothyroxine Sodium [Synthroid] 75 mcg PO DAILY 12/15/20 02/28/21 History Warfarin [Coumadin] 2.5 mg PO TUSA 12/15/20 02/28/21 History carvediloL [Coreg] 3.125 mg PO BID 12/15/20 02/28/21 History Docusate [Colace] 100 mg PO DAILY 02/28/21 02/28/21 History Furosemide [Lasix] 40 mg PO BID@0900,1600 02/28/21 02/28/21 History Gabapentin [Neurontin] 100 mg PO TID 02/28/21 02/28/21 History HYDROcodone/APAP 5-325MG [Wilson 1 tab PO DAILY PRN 02/28/21 02/28/21 History 5-325] Multivitamins, Thera [Multivitamin 1 tab PO DAILY 02/28/21 02/28/21 History (formulary)] Allergies Allergy/AdvReac Type Severity Reaction Status Date / Time No Known Allergies Allergy Verified 02/28/21 11:39 Physical Exam Vitals: Vital Signs Temp Pulse Pulse Resp BP BP Pulse Ox 03/01/21 02:00 54 L 18 03/01/21 00:00 54 L 18 154/54 90 L 02/28/21 20:00 77 18 137/63 94 L 02/28/21 18:30 97.1 F L 79 18 173/78 94 L 02/28/21 16:26 97.7 F 69 18 121/61 97 02/28/21 13:00 69 18 121/61 97 02/28/21 11:45 71 20 125/63 96 02/28/21 10:01 97.7 F 48 L 18 119/54 96 Intake and Output 02/28/21 03/01/21 03/01/21 22:59 06:59 14:59 Intake Total 0 Balance 0 Intake: Oral 0 Other: Weight 62.5 kg Poor historian Dry mucus membranes Left neck increased palpable mass HR - Tachy Abdomen soft Ext: Mild BLE edema - Constitutional General appearance: cooperative Results CBC & Chem 7: 03/01/21 07:55 03/01/21 07:55 Labs: Abnormal Lab Results - Last 24 Hours (Table) 02/28/21 02/28/21 02/28/21 Range/Units 10:55 10:55 10:55 WBC 17.6 H (3.8-10.6) k/uL RDW 17.4 H (11.5-15.5) % Neutrophils # 14.9 H (1.3-7.7) k/uL Lymphocytes # 0.9 L (1.0-4.8) k/uL Monocytes # 1.1 H (0-1.0) k/uL PT 72.3 H (9.0-12.0) sec INR 7.4 H* (<1.2) APTT 46.2 H (22.0-30.0) sec Sodium 134 L (137-145) mmol/L Chloride 94 L (98-107) mmol/L BUN 64 H (9-20) mg/dL Creatinine 1.28 H (0.66-1.25) mg/dL Glucose 148 H (74-99) mg/dL AST 86 H (17-59) U/L Alkaline Phosphatase 166 H (38-126) U/L Troponin I (0.000-0.034) ng/mL 02/28/21 02/28/21 02/28/21 Range/Units 10:55 15:45 15:45 WBC 13.1 H (3.8-10.6) k/uL RDW 16.6 H (11.5-15.5) % Neutrophils # (1.3-7.7) k/uL Lymphocytes # (1.0-4.8) k/uL Monocytes # (0-1.0) k/uL PT (9.0-12.0) sec INR (<1.2) APTT (22.0-30.0) sec Sodium (137-145) mmol/L Chloride (98-107) mmol/L BUN (9-20) mg/dL Creatinine (0.66-1.25) mg/dL Glucose (74-99) mg/dL AST (17-59) U/L Alkaline Phosphatase (38-126) U/L Troponin I 0.061 H* 0.036 H* (0.000-0.034) ng/mL 02/28/21 02/28/21 02/28/21 Range/Units 19:41 22:35 22:35 WBC 12.2 H (3.8-10.6) k/uL RDW 16.9 H (11.5-15.5) % Neutrophils # (1.3-7.7) k/uL Lymphocytes # (1.0-4.8) k/uL Monocytes # (0-1.0) k/uL PT 26.1 H (9.0-12.0) sec INR 2.7 H (<1.2) APTT (22.0-30.0) sec Sodium (137-145) mmol/L Chloride (98-107) mmol/L BUN (9-20) mg/dL Creatinine (0.66-1.25) mg/dL Glucose (74-99) mg/dL AST (17-59) U/L Alkaline Phosphatase (38-126) U/L Troponin I 0.039 H* (0.000-0.034) ng/mL 03/01/21 Range/Units 02:34 WBC 13.3 H (3.8-10.6) k/uL RDW 16.9 H (11.5-15.5) % Neutrophils # (1.3-7.7) k/uL Lymphocytes # (1.0-4.8) k/uL Monocytes # (0-1.0) k/uL PT (9.0-12.0) sec INR (<1.2) APTT (22.0-30.0) sec Sodium (137-145) mmol/L Chloride (98-107) mmol/L BUN (9-20) mg/dL Creatinine (0.66-1.25) mg/dL Glucose (74-99) mg/dL AST (17-59) U/L Alkaline Phosphatase (38-126) U/L Troponin I (0.000-0.034) ng/mL Assessment and Plan (1) Dysphagia Current Visit: Yes Status: Acute Priority: High Code(s): R13.10 - DYSPHAGIA, UNSPECIFIED SNOMED Code(s): 18670085 (2) Elevated INR Current Visit: Yes Status: Acute Code(s): R79.1 - ABNORMAL COAGULATION PROFILE SNOMED Code(s): 856234009 Plan: Assessment and Recommendations: Dysphagia: - Swallow evaluation recommended as patient states he is not eating as difficult to swallow due to neck masses Metastatic Lung Cancer: - Over poor prognosis nad declining overall status, patient and family have refused the recommended hospice care at this time. - Status post palliaitivve xrt to left mass Physician attest: I have completed the full history and physical and agree with above dictation, dictated as a ascribe.
[2021-03-01 18:44] LABS: Anisocytosis Slight; Basophils % (A) 0 %; Eosinophils % (A) 0 %; HCT 44.7 % (39.0-53.0); HGB 14.3 gm/dL (13.0-17.5); Lymphocytes # (A) 0.8 k/uL (1.0-4.8); Lymphocytes % (A) 5 %; MCH 27.7 pg (25.0-35.0); MCV 86.5 fL (80.0-100.0); Mean Platelet Volume 7.9; Monocytes # (A) 1.1 k/uL (0-1.0); Monocytes % (A) 7 %; Neutrophils # (A) 13.2 k/uL (1.3-7.7); Neutrophils % (A) 85 %; Platelet Count 185 k/uL (150-450); RBC 5.17 m/uL (4.30-5.90); WBC 15.5 k/uL (3.8-10.6)
[2021-03-01 18:52] LABS: INR 1.5 (<1.2); Prothrombin Time 15.3 sec (9.0-12.0)
[2021-03-02] MEDS: LEVOTHYROXINE 75 MCG TAB PO SCH (06:34)
[2021-03-02] MEDS: carvediloL 3.125 MG TAB PO SCH ×2 (06:34→17:01)
[2021-03-02] MEDS: MULTIVITAMINS, THERA 1 EACH TAB PO SCH (08:10)
[2021-03-02] MEDS: GABAPENTIN 100 MG CAP PO SCH ×3 (08:10→21:44)
[2021-03-02] MEDS: PANTOPRAZOLE 40 MG/10 ML VIAL IV SCH ×2 (08:10→22:03)
[2021-03-02] MEDS: CHOLECALCIFEROL 25 MCG (1000 IU) TABLET PO SCH (08:10)
[2021-03-02] MEDS: MAG HYDROX/AL HYDROX/SIMETH 30 ML, LIDOCAINE VISCOUS 30 ML, diphenhydrAMINE ELIXIR 75 M... PO SCH ×12 (08:11→22:02)
[2021-03-02] MEDS: SODIUM CHLORIDE 0.9% 1,000 ML IV SCH (08:16)
[2021-03-02 08:58] LABS: Calcium 9.8 mg/dL (8.4-10.2); Magnesium 2.3 mg/dL (1.6-2.3); Potassium 4.4 mmol/L (3.5-5.1)
[2021-03-02 09:00] LABS: INR 1.6 (<1.2); Prothrombin Time 15.6 sec (9.0-12.0)
[2021-03-02 09:11] LABS: Anisocytosis Slight; Basophils # (A) 0.1 k/uL (0-0.2); Basophils % (A) 1 %; Eosinophils # (A) 0.1 k/uL (0-0.7); Eosinophils % (A) 1 %; HCT 43.6 % (39.0-53.0); HGB 14.3 gm/dL (13.0-17.5); Lymphocytes # (A) 0.9 k/uL (1.0-4.8); Lymphocytes % (A) 7 %; MCHC 32.9 g/dL (31.0-37.0); Mean Platelet Volume 7.6; Monocytes # (A) 0.8 k/uL (0-1.0); Monocytes % (A) 6 %; Neutrophils # (A) 10.9 k/uL (1.3-7.7); Neutrophils % (A) 83 %; Platelet Count 189 k/uL (150-450); RBC 5.13 m/uL (4.30-5.90); RDW 16.4 % (11.5-15.5)
--- NOTE | 2021-03-02 11:12 | P.PN ---
Subjective HISTORY OF PRESENT ILLNESS: This is a 85 year old male with a past medical history significant for coronary artery disease with previous CABG x 4 and stenting, systolic congestive heart failure with EF 20-25%, hypertension, hyperlipidemia, and atrial fibrillation with previous ablation, and stage IV lung cancer. Patient follows in the office with Dr. Cisneros. We have been asked to see the patient in consultation for abno rmal troponins. Patient examined at the bedside. Patient presented to the hospital due rectal bleeding. Patient was found to supratherapeutic INR of 7.4. Patient received Vitamin K. He currently denies chest pain or pressure. Denies shortness of breath. Vital signs are stable. EKG reveals sinus mechanism with PVCs. Left axis deviation. Incomplete left bundle branch block. Chest xray chronic changes without evidence for acute pulmonary disease. Laboratory data: WBC 16.0. Hemoglobin 13.9. Platelet count 154. INR 1.7. Sodium 135. Potassium 3.8. BUN 49. Creatinine 0.93. Troponin 0.061. 0.036. 0.039. 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 Moderate tricuspid regurgitation, moderate pulmonary hypertension with RVSP of 54.38mmHg Cardiac catheterization history: October 2018 revealing severe 2 vessel coronary artery disease involving the LAD and RCA. Patent SAMANIEGO to LAD. Patent SVG to RCA. Mild disease involving left circumflex coronary artery. 03/02/2021 Pt seen and examined sitting up in bed with family at the bedside. He has no bleeding in the previous 24 hours. Blood pressure 137/60 heart rate 72 afebrile and maintaining oxygen saturation on room air. Laboratory data reviewed, WBC 13, hemoglobin 14.3, platelets 189, INR 1.6, sodium 138, potassium 4.4, creatinine 1.21. PHYSICAL EXAM: GENERAL: Well-developed in no acute distress. HEENT: Head is normocephalic. Pupils are equal, round. Sclerae anicteric. Mucous membranes of the mouth are moist. Neck supple. No JVD or thyromegaly LUNGS: Respirations even and unlabored. Lungs essentially clear to auscultation bilaterally. HEART: Regular rate and rhythm. S1 and S2 heard. EXTREMITIES: Normal range of motion. No clubbing or cyanosis. Peripheral pulses intact. No lower extremity edema ASSESSMENT: Lower GI bleed Supratherapeutic INR Chronic systolic congestive heart failure, ejection fraction 2025% Coronary artery disease with previous CABG 4 and stenting Abnormal troponins, not suggestive of acute coronary syndrome Hypertension Hyperlipidemia Paroxysmal atrial fibrillation with previous ablation, on anticoagulation with Coumadin Stage IV lung CVA PLAN: Change anti-coagulation to xarelto 15 mg daily. We will ask the protective services case worker to check the cost. Nurse practitioner note has been reviewed by physician. Signing provider agrees with the documented findings, assessment, and plan of care. Objective - Vital Signs Vital signs: Vital Signs Temp 97.9 F 03/02/21 08:07 Pulse 72 03/02/21 08:07 Resp 16 03/02/21 08:07 BP 137/60 03/02/21 08:07 Pulse Ox 92 L 03/02/21 08:07 Intake & Output 03/01/21 03/02/21 03/02/21 18:59 06:59 18:59 Intake Total 0 240 Balance 0 240 Weight 62.5 kg 65 kg Intake: Oral 0 240 - Labs CBC & Chem 7: 03/02/21 07:37 03/02/21 07:37 Labs: Abnormal Lab Results - Last 24 Hours (Table) 03/01/21 03/01/21 03/02/21 Range/Units 18:02 18:02 07:37 WBC 15.5 H 13.0 H (3.8-10.6) k/uL RDW 17.0 H 16.4 H (11.5-15.5) % Neutrophils # 13.2 H 10.9 H (1.3-7.7) k/uL Lymphocytes # 0.8 L 0.9 L (1.0-4.8) k/uL Monocytes # 1.1 H (0-1.0) k/uL PT 15.3 H (9.0-12.0) sec INR 1.5 H (<1.2) BUN (9-20) mg/dL Glucose (74-99) mg/dL 03/02/21 03/02/21 Range/Units 07:37 07:37 WBC (3.8-10.6) k/uL RDW (11.5-15.5) % Neutrophils # (1.3-7.7) k/uL Lymphocytes # (1.0-4.8) k/uL Monocytes # (0-1.0) k/uL PT 15.6 H (9.0-12.0) sec INR 1.6 H (<1.2) BUN 51 H (9-20) mg/dL Glucose 107 H (74-99) mg/dL Microbiology - Last 24 Hours (Table) 02/28/21 12:15 Blood Culture - Preliminary Blood No Growth after 24 hours 02/28/21 12:30 Blood Culture - Preliminary Blood No Growth after 24 hours
--- NOTE | 2021-03-02 11:33 | P.PN ---
Subjective Progress Note Date: 03/02/21 Principal diagnosis: Rectal bleed This is an 85-year-old male with a history of multiple comorbidities including stage IV lung cancer with metastasis and atrial fibrillation for which he was on Coumadin. Presented to the emergency department 2 days ago with complaints of rectal bleeding. He was noted to have a supratherapeutic INR at 7.4 and was given vitamin K. He has had no further episodes of rectal bleeding. He was evaluated by speech pathology and is tolerating his diet. He had a large soft bowel movement this morning with no reported blood or black stool. Today's repeat INR is 1.6. Objective - Vital Signs Vital signs: Vital Signs Temp 97.9 F 03/02/21 08:07 Pulse 72 03/02/21 08:07 Resp 16 03/02/21 08:07 BP 137/60 03/02/21 08:07 Pulse Ox 92 L 03/02/21 08:07 Intake & Output 03/01/21 03/02/21 03/02/21 18:59 06:59 18:59 Intake Total 0 240 Balance 0 240 Weight 62.5 kg 65 kg Intake: Oral 0 240 - Exam General appearance: The patient is alert, oriented, appears in no acute distress. HET: Head is normocephalic and atraumatic. Conjunctiva pink. Sclera anicteric. Neck: Supple without lymphadenopathy. Abdomen: Soft, nontender, nondistended with bowel sounds. No guarding or rigidity. Extremities: Normal skin color and turgor. No pedal edema Skin: No rashes, no jaundice Neurological: No focal deficits. Alert and oriented 3. - Labs CBC & Chem 7: 03/02/21 07:37 03/02/21 07:37 Labs: Abnormal Lab Results - Last 24 Hours (Table) 03/01/21 03/01/21 03/02/21 Range/Units 18:02 18:02 07:37 WBC 15.5 H (3.8-10.6) k/uL RDW 17.0 H (11.5-15.5) % Neutrophils # 13.2 H (1.3-7.7) k/uL Lymphocytes # 0.8 L (1.0-4.8) k/uL Monocytes # 1.1 H (0-1.0) k/uL PT 15.3 H 15.6 H (9.0-12.0) sec INR 1.5 H 1.6 H (<1.2) BUN (9-20) mg/dL Glucose (74-99) mg/dL 03/02/21 Range/Units 07:37 WBC (3.8-10.6) k/uL RDW (11.5-15.5) % Neutrophils # (1.3-7.7) k/uL Lymphocytes # (1.0-4.8) k/uL Monocytes # (0-1.0) k/uL PT (9.0-12.0) sec INR (<1.2) BUN 51 H (9-20) mg/dL Glucose 107 H (74-99) mg/dL Microbiology - Last 24 Hours (Table) 02/28/21 12:15 Blood Culture - Preliminary Blood No Growth after 24 hours 02/28/21 12:30 Blood Culture - Preliminary Blood No Growth after 24 hours Assessment and Plan (1) Rectal bleeding Narrative/Plan: This is an 85-year-old male who presented to the emergency department with complaints of weakness and rectal bleeding for the last 2 days duration. The patient has multiple comorbidities including lung cancer with metastasis who recently underwent radiation therapy finishing 5 sessions last week. He also has a history of atrial fibrillation on Coumadin. Patient's states he has not been eating for the last 1 week duration, he has also been suffering from constipation and was given a laxative. He had a couple loose stools mixed with small amount of blood following the laxative. As part of his workup in the emergency department he was found to have an INR of 7.4, he was given vitamin K. His repeat INR is now 1.7. His hemoglobin is stable at 13.8. He has had a loose stool today, however Y states there was no blood in the stool. He denies any abdominal pain, nausea, or vomiting. Coumadin has been discontinued. Likely dealing with possible hemorrhoidal bleed due to constipation and diarrhea with supratherapeutic INR. The patient has had no further rectal bleeding. No plans on endoscopic evaluation. Continue to hold Coumadin. Recommend daily bowel regimen such as MiraLAX. Current Visit: Yes Status: Acute Code(s): K62.5 - HEMORRHAGE OF ANUS AND RECTUM SNOMED Code(s): 84421699 (2) History of lung cancer Current Visit: Yes Status: Acute Code(s): Z85.118 - PERSONAL HISTORY OF MALIGNANT NEOPLASM OF BRONCHUS AND LUNG SNOMED Code(s): 946066487 (3) Elevated INR Current Visit: Yes Status: Acute Code(s): R79.1 - ABNORMAL COAGULATION PROFILE SNOMED Code(s): 846336488 (4) History of atrial fibrillation Narrative/Plan: Was on Coumadin, currently on hold. Current Visit: Yes Status: Acute Code(s): Z86.79 - PERSONAL HISTORY OF OTHER DISEASES OF THE CIRCULATORY SYSTEM SNOMED Code(s): 792419928 Plan: 1. Diet per recommendations from speech therapy 2. MiraLAX daily as needed 3. May resume anticoagulation 4. No plans on endoscopic evaluation as patient is no longer having rectal bleeding, likely due to elevated INR, possible hemorrhoidal in nature 5. Patient is cleared for discharge from gastroenterology Thank you for allowing us to participate in the care of the patient, the GI service will sign off, gastroenterology will not be available at the hospital this weekend and if further evaluation by gastroenterology is required the patient will need transfer as per the primary team's discretion. Dr. Eloy Carrington I agree with the dictator's note, documented as a scribe by Birdie Moya.
--- NOTE | 2021-03-02 14:59 | P.PN ---
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 The patient presented to the hospital with a chief complaint of increasing weakness 1 week and rectal bleeding 2 days. Patient just completed 5 session course of radiation therapy on Friday02/21/21. He was seen and fully evaluated in the emergency department and found to have a critically elevated INR of 7.4, Leukocytosis with WBC count of 17.6 with a left shift, ÁNGEL with BUN 64, creatinine 1.28, and GFR 51 (baseline creatinine 0.98), elevated liver enzymes with AST of 86 and alkaline phosphatase of 166, and an elevated troponin of 0.061. Patient was given a prophylactic dose of Rocephin in the emergency department and then admitted under our services for lower GI bleed. Patient seen and fully assessed at bedside in the ER. Rectal exam completed with no obvious external hemorrhoids or fissures noted. Patient was noted to have active oozing bright red blood from rectum. Patient denies any abdominal pain or discomfort. Order placed for vitamin K 5 mg IVPB. Rectal bleeding resolved, INR normalized with most recent INR of 1.6. Patient seen and evaluated by gastroenterology and cleared from their standpoint. Patient was seen and evaluated by cardiology. Hemoglobin remains stable. We are restarting anticoagulation at this time with Xarelto. We will continue to monitor patient closely throughout the night to ensure GI bleeding does not recur. Likely discharge tomorrow a.m. if hemoglobin remains stable. 03/01/21: Patient was seen and fully evaluated at the bedside this morning. His INR has decreased to therapeutic levels at 2.7. Hemoglobin stable at 13.9. Per at bedside patient has been having brown pasty stools but denies any noted blood or dark tarry coloration in the stool. Patient denies having any complaints of pain or discomfort. He reports persistent weakness, but denies having any headache, lightheadedness, dizziness, chest pain, palpitations, or shortness of breath. 03/02/21: Patient was seen and fully evaluated at bedside this morning. He was resting comfortably in bed. INR has normalized to 1.6. Hemoglobin remains stable at 14.3. Patient has had no further episodes of hematochezia since normalization of INR. Patient being restarted on anticoagulation with Xarelto. We will continue to monitor patient closely throughout the night to ensure GI bleeding does not recur. Likely discharge tomorrow a.m. if hemoglobin remains stable. Patient continues to deny having any complaints of headache, lightheadedness, dizziness, chest pain, palpitations, shortness of breath, or abdominal pain/discomfort. Physical exam: General: non toxic, no distress, appears at stated age Derm: warm, dry. bruising left lateral, temporal region of head, forehead, and jaw Head: atraumatic, normocephalic, symmetric Eyes: no lid lag, anicteric sclera Mouth: no lip lesion, mucus membranes moist, tongue swollen with white scaly thrush, left-sided facial droop ( reports secondary to metastatic process and radiation treatment) Cardiovascular: S1S2 reg, Murmur present, no gallop or rub. Positive posterior tibial pulses. No lower extremity edema. Lungs: Respirations even, regular, and unlabored on room air. Lungs diminished with no noted rhonchi, rales, or wheezes present. Abdominal: Soft, nontender to palpation, no guarding, no appreciable organomegaly Ext: no gross muscle atrophy, no contractures Neuro: CN II-XI grossly intact, no focal neuro deficits Psych: Alert, oriented, appropriate affect Assessment and Plan of Care: Lower GI bleed, resolved -Critically elevated INR 7.4, vitamin K was administered. Current INR 1.6. -Hemoglobin has remained stable with current hemoglobin 14.3. -Patient seen, evaluated, and cleared by gastroenterology. -After administration of vitamin K and normalization of INR, rectal bleeding resolved. -Patient has been restarted on anticoagulation with Xarelto and we will monitor hemoglobin closely as well as for any signs of recurrent GI bleeding with anticoagulation. -Continue Protonix 40 mg IVP twice daily. -SCDs for DVT prophylaxis. Supratherapeutic INR treated with vitamin K, resolved Sore throat with thrush -Likely secondary to recent radiation therapy. -Order placed for Cool's solution consisting of Maalox, viscous lidocaine, Benadryl, and nystatin. Chronic systolic heart failure with a severely impaired EF of 20-25% -Patient with poor oral intake, will defer restarting of Lasix to cardiology. -Continue Daily weights -Chest x-ray showing chronic changes without evidence for acute pulmonary disease Elevated troponins, flat and decreasing not-consistent with acute coronary syndrome, acute coronary event ruled out -Possibly secondary to chronic systolic heart failure vs recent radiation treatments vs demand ischemia -0.061 with repeat of 0.036 and 0.039 -EKG revealing sinus rhythm with frequent PVCs and PACs -Cardiology following Atrial fibrillation on anticoagulation status post ablation -Upon arrival INR 7.4, Coumadin discontinued and vitamin K administered. INR normalized and is now 1.6. -Lower GI bleeding resolved after administration of vitamin K and normalization of INR. Patient restarted on anticoagulation with Xarelto. Hypertension -Monitor vital signs and continue daily medication regimen. Hyperlipidemia -Continue daily medication regimen. Hypothyroidism Continue daily medication regimen with levothyroxine. Stage IV lung cancer -Oncology consulted -Symptomatic care and pain management -Swallow evaluation completed, recommending possible feeding tube placement. Family declining at this time. Patient undergoing swallow exercises and to be discharged home with home care accompanied with speech and language pathologist for continued treatment. CODE STATUS: DO NOT RESUSCITATE/DO NOT INTUBATE DVT prophylaxis: SCDs Discussed with: Patient, patient's , patient's daughter, and RN Anticipated discharge date: Tomorrow morning as long as hemoglobin remains stable and no further episodes of hematochezia. Anticipated discharge place: Home with home care A total of 40 minutes was spent on the care of this complex patient more than 50% of the time was spent in counseling and care coordination. Objective - Vital Signs Vital signs: Vital Signs Temp 97.9 F 03/02/21 08:07 Pulse 72 03/02/21 08:07 Resp 16 03/02/21 08:07 BP 137/60 03/02/21 08:07 Pulse Ox 92 L 03/02/21 08:07 Intake & Output 03/01/21 03/02/21 03/02/21 18:59 06:59 18:59 Intake Total 0 240 Balance 0 240 Weight 62.5 kg 65 kg Intake: Oral 0 240 - Labs CBC & Chem 7: 03/02/21 07:37 03/02/21 07:37 Labs: Abnormal Lab Results - Last 24 Hours (Table) 03/01/21 03/01/21 03/02/21 Range/Units 18:02 18:02 07:37 WBC 15.5 H 13.0 H (3.8-10.6) k/uL RDW 17.0 H 16.4 H (11.5-15.5) % Neutrophils # 13.2 H 10.9 H (1.3-7.7) k/uL Lymphocytes # 0.8 L 0.9 L (1.0-4.8) k/uL Monocytes # 1.1 H (0-1.0) k/uL PT 15.3 H (9.0-12.0) sec INR 1.5 H (<1.2) BUN (9-20) mg/dL Glucose (74-99) mg/dL 03/02/21 03/02/21 Range/Units 07:37 07:37 WBC (3.8-10.6) k/uL RDW (11.5-15.5) % Neutrophils # (1.3-7.7) k/uL Lymphocytes # (1.0-4.8) k/uL Monocytes # (0-1.0) k/uL PT 15.6 H (9.0-12.0) sec INR 1.6 H (<1.2) BUN 51 H (9-20) mg/dL Glucose 107 H (74-99) mg/dL Microbiology - Last 24 Hours (Table) 02/28/21 12:15 Blood Culture - Preliminary Blood No Growth after 24 hours 02/28/21 12:30 Blood Culture - Preliminary Blood No Growth after 24 hours <Divya Ledbetter - Last Filed: 03/02/21 19:15> Subjective Matt Enciso NP rendered care for this patient independently, reviewed the findings and plan as documented in the note above. I did not physically speak with or examine the patient on this date. Objective - Vital Signs Vital signs: Vital Signs Temp 97.9 F 03/02/21 16:00 Pulse 73 03/02/21 16:00 Resp 18 03/02/21 16:00 BP 140/63 03/02/21 16:00 Pulse Ox 93 L 03/02/21 16:00 Intake & Output 03/02/21 03/02/21 03/03/21 06:59 18:59 06:59 Intake Total 716 Balance 716 Weight 65 kg Intake: Oral 716 - Labs CBC & Chem 7: 03/02/21 07:37 03/02/21 07:37 Labs: Abnormal Lab Results - Last 24 Hours (Table) 03/02/21 03/02/21 03/02/21 Range/Units 07:37 07:37 07:37 WBC 13.0 H (3.8-10.6) k/uL RDW 16.4 H (11.5-15.5) % Neutrophils # 10.9 H (1.3-7.7) k/uL Lymphocytes # 0.9 L (1.0-4.8) k/uL PT 15.6 H (9.0-12.0) sec INR 1.6 H (<1.2) BUN 51 H (9-20) mg/dL Glucose 107 H (74-99) mg/dL Microbiology - Last 24 Hours (Table) 02/28/21 12:15 Blood Culture - Preliminary Blood No Growth after 48 hours 02/28/21 12:30 Blood Culture - Preliminary Blood No Growth after 48 hours
[2021-03-02] MEDS ORDERED: RIVAROXABAN 15 MG TAB PO SCH (17:30)
[2021-03-02] MEDS ORDERED: ACETAMINOPHEN TAB 325 MG TAB PO PRN (19:58)
--- NOTE | 2021-03-02 20:18 | P.PN ---
Subjective Progress Note Date: 03/02/21 Principal diagnosis: Rectal Bleeding Hemoglobin has been holding steady. Cardiology has switched to Xarelto which will be more easily monitored and less chance of coagulopathy if not eating. Objective - Vital Signs Vital signs: Vital Signs Temp 98.2 F 03/02/21 19:52 Pulse 65 03/02/21 19:52 Resp 16 03/02/21 19:52 BP 168/70 03/02/21 19:52 Pulse Ox 98 03/02/21 19:52 Intake & Output 03/02/21 03/02/21 03/03/21 06:59 18:59 06:59 Intake Total 716 Balance 716 Weight 65 kg Intake: Oral 716 - Exam Poor historian Dry mucus membranes Left neck increased palpable mass HR - Tachy Abdomen soft Ext: Mild BLE edema - Labs CBC & Chem 7: 03/02/21 07:37 03/02/21 07:37 Labs: Abnormal Lab Results - Last 24 Hours (Table) 03/02/21 03/02/21 03/02/21 Range/Units 07:37 07:37 07:37 WBC 13.0 H (3.8-10.6) k/uL RDW 16.4 H (11.5-15.5) % Neutrophils # 10.9 H (1.3-7.7) k/uL Lymphocytes # 0.9 L (1.0-4.8) k/uL PT 15.6 H (9.0-12.0) sec INR 1.6 H (<1.2) BUN 51 H (9-20) mg/dL Glucose 107 H (74-99) mg/dL Microbiology - Last 24 Hours (Table) 02/28/21 12:15 Blood Culture - Preliminary Blood No Growth after 48 hours 02/28/21 12:30 Blood Culture - Preliminary Blood No Growth after 48 hours Assessment and Plan (1) Dysphagia Current Visit: Yes Status: Acute Priority: High Code(s): R13.10 - DYSPHAGIA, UNSPECIFIED SNOMED Code(s): 01395373 (2) Elevated INR Current Visit: Yes Status: Acute Code(s): R79.1 - ABNORMAL COAGULATION PROFILE SNOMED Code(s): 116005023 Plan: Assessment and Recommendations: Dysphagia: - Swallow evaluation recommended as patient states he is not eating as difficult to swallow due to neck masses Metastatic Lung Cancer: - Over poor prognosis nad declining overall status, patient and family have refused the recommended hospice care at this time. - Status post palliiativve xrt to left mass Coumadin Coagulaopathy: - Hemoglobin stable - Switched to DOAC per cardiology Physician attest: I have completed the full history and physical and agree with above dictation, dictated as a ascribe.
[2021-03-03] MEDS: carvediloL 3.125 MG TAB PO SCH (06:51)
[2021-03-03] MEDS: LEVOTHYROXINE 75 MCG TAB PO SCH (06:51)
[2021-03-03 08:29] LABS: Anisocytosis Slight; HCT 42.6 % (39.0-53.0); MCH 28.3 pg (25.0-35.0); MCHC 32.9 g/dL (31.0-37.0); MCV 86.1 fL (80.0-100.0); Mean Platelet Volume 9.2; Platelet Count 166 k/uL (150-450); RBC 4.95 m/uL (4.30-5.90); RDW 16.1 % (11.5-15.5); WBC 10.9 k/uL (3.8-10.6)
[2021-03-03 08:35] VITALS: BP 123/62; PULSE 58; RESP 18; TEMP 97.5
[2021-03-03] MEDS: CHOLECALCIFEROL 25 MCG (1000 IU) TABLET PO SCH (10:25)
[2021-03-03] MEDS: MULTIVITAMINS, THERA 1 EACH TAB PO SCH (10:26)
[2021-03-03] MEDS: GABAPENTIN 100 MG CAP PO SCH (10:26)
[2021-03-03] MEDS: PANTOPRAZOLE 40 MG/10 ML VIAL IV SCH (10:26)
--- NOTE | 2021-03-03 11:50 | P.DS ---
<Matt Enciso - Last Filed: 03/03/21 11:32> Providers Expected date of discharge: 03/03/21 Hospital Course: Discharge Diagnosis: Lower GI bleed, resolved Supratherapeutic INR treated with vitamin K, resolved Sore throat with thrush and irritation from recent radiation therapy Chronic systolic heart failure with a severely impaired EF of 20-25% Elevated troponins, flat and decreasing not-consistent with acute coronary syndrome, acute coronary event ruled out Atrial fibrillation on anticoagulation status post ablation Hypertension Hyperlipidemia Hypothyroidism Stage IV lung cancer Hospital Course: Patient is a very pleasant 85-year-old male with a past medical history including CAD with previous CT and stent placement status post CABG (quadruple bypass), chronic systolic heart failure with severely impaired EF of 20-25%, 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 The patient presented to the hospital with a chief complaint of increasing weakness 1 week and rectal bleeding 2 days. He was seen and fully evaluated in the emergency department and found to have a critically elevated INR of 7.4, Leukocytosis with WBC count of 17.6 with a left shift, ÁNGEL with BUN 64, creatinine 1.28, and GFR 51 (baseline creatinine 0.98), elevated liver enzymes with AST of 86 and alkaline phosphatase of 166, and an elevated troponin of 0.061. Patient was given a prophylactic dose of Rocephin in the emergency department and then admitted under our services for lower GI bleed. Patient seen and fully assessed at bedside in the ER. Rectal exam completed with no obvious external hemorrhoids or fissures noted. Patient was noted to have active oozing bright red blood from rectum. Patient denies any abdominal pain or discomfort. Order placed for vitamin K 5 mg IVPB. Throughout the night, rectal bleeding resolved, and INR normalized with most recent INR of 1.6. Patient seen and evaluated by gastroenterology and cleared from their standpoint. Patient was seen and evaluated by cardiology. Hemoglobin remains stable. We restarted with Xarelto and continued to monitor patient closely overnight to ensure there was no recurrence of rectal bleeding. Patient had no further episodes of bleeding. Repeat morning hemoglobin 14.0. Patient's condition stabilized and he is being discharged home with [facility] at this time. Pt to follow up as scheduled with Dr. Shaw next week and with his PCP, Dr. Ruiz in 1-2 days. Pt discharged home on magic mouthwash and advised to discontinue lasix until oral intake is back to normal to prevent dehydration. Physical exam: Patient seen and fully evaluated at bedside this morning. He was resting comfortably with son at bedside. Patient denies having any complaints at this time including headache, lightheadedness, dizziness, chest pain, palpitations, shortness of breath, abdominal pain, nausea, vomiting, or experiencing any numbness/tingling/weakness in his extremities. Vital signs stable. Labs show no significant abnormalities with stable hemoglobin of 14.0. Patient reports that he feels that he is swallowing better today and that the Cools Solution (magic mouthwash) is helping. General: non toxic, no distress, thin and frail, chronically ill appearing Derm: warm, dry. bruising left lateral, temporal region of head, forehead, and jaw Head: atraumatic, normocephalic, symmetric Eyes: no lid lag, anicteric sclera Mouth: no lip lesion, mucus membranes moist, tongue swollen with white scaly thrush, left-sided facial droop ( reports secondary to metastatic process and radiation treatment) Cardiovascular: S1S2 reg, Murmur present, no gallop or rub. Positive posterior tibial pulses. No lower extremity edema. Lungs: Respirations even, regular, and unlabored on room air. Lungs diminished with no noted rhonchi, rales, or wheezes present. Abdominal: Soft, nontender to palpation, no guarding, no appreciable organomegaly Ext: no gross muscle atrophy, no contractures Neuro: CN II-XI grossly intact, no focal neuro deficits Psych: Alert, oriented, appropriate affect A total of 45 minutes of time were spent preparing this complex discharge summary. Patient Condition at Discharge: Stable Plan - Discharge Summary New Discharge Prescriptions: New Rivaroxaban [Xarelto] 15 mg PO W/SUPPER #30 tab Continue Nitroglycerin Sl Tabs [Nitrostat] 0.4 mg SUBLINGUAL Q5M PRN PRN Reason: Chest Pain carvediloL [Coreg] 3.125 mg PO BID Famotidine [Pepcid] 40 mg PO BID Docusate [Colace] 100 mg PO DAILY Levothyroxine Sodium [Synthroid] 75 mcg PO DAILY Cholecalciferol (Vitamin D3) [Vitamin D3 (3000 Iu)] 75 mcg PO DAILY Multivitamins, Thera [Multivitamin (formulary)] 1 tab PO DAILY HYDROcodone/APAP 5-325MG [Everetts 5-325] 1 tab PO DAILY PRN PRN Reason: Pain Gabapentin [Neurontin] 100 mg PO TID Discontinued Warfarin [Coumadin] 5 mg PO SUMOWETHFR Warfarin [Coumadin] 2.5 mg PO TUSA Furosemide [Lasix] 40 mg PO BID@0900,1600 Discharge Medication List Nitroglycerin Sl Tabs [Nitrostat] 0.4 mg SUBLINGUAL Q5M PRN 04/08/14 [History] Cholecalciferol (Vitamin D3) [Vitamin D3 (3000 Iu)] 75 mcg PO DAILY 12/15/20 [History] Famotidine [Pepcid] 40 mg PO BID 12/15/20 [History] Levothyroxine Sodium [Synthroid] 75 mcg PO DAILY 12/15/20 [History] carvediloL [Coreg] 3.125 mg PO BID 12/15/20 [History] Docusate [Colace] 100 mg PO DAILY 02/28/21 [History] Gabapentin [Neurontin] 100 mg PO TID 02/28/21 [History] HYDROcodone/APAP 5-325MG [Everetts 5-325] 1 tab PO DAILY PRN 02/28/21 [History] Multivitamins, Thera [Multivitamin (formulary)] 1 tab PO DAILY 02/28/21 [History] Rivaroxaban [Xarelto] 15 mg PO W/SUPPER #30 tab 03/02/21 [Rx] Follow up Appointment(s)/Referral(s): [facility], [NON-STAFF] - Nandini Ruiz MD [Primary Care Provider] - 1-2 days (Patient to schedule appointment, as office is closed at time of discharge. Ensure office is aware this is an appointment following a hopspital stay.) Patient Instructions/Handouts: Rectal Bleeding (DC), Elevated INR (DC) Activity/Diet/Wound Care/Special Instructions: Activity: As tolerated Diet: Pleasure feeds, encourage oral intake as pt tolerates. Special Instructions: You are being discharged home with [facility] services. You will also be receiving continued therapy with speech and language pathology for swallowing exercises since declining feeding tube placement at this time. I would continue to hold Lasix (furosemide) until oral intake is back to normal. Taking a diuretic when there is minimal oral intake places him at high risk for dehydration. Zachariahrelto covered with $43.50 copay - filled at [facility] Please take Magic Mouthwash script to [facility]'s pharmacy to fill. Thank you for allowing us to participate in your care, it was truly a pleasure getting to know your family and having you for a patient!! Discharge Disposition: HOME WITH HOME HEALTH SERVICES <Divya Ledbetter - Last Filed: 03/03/21 19:52> Providers Date of admission: 02/28/21 12:01 Attending physician: Divya Ledbetter DO Consults: 02/28/21 12:42 Consult Physician Routine Consulting Provider: Rock Smallwood Consult Reason/Comments: Stage IV lung cancer with metastatic disease to the lymph nodes Do you want consulting provider notified?: Yes 02/28/21 14:13 Consult Physician Routine Consulting Provider: Ania Carrington Consult Reason/Comments: Lower GI bleed Do you want consulting provider notified?: Yes 03/01/21 09:37 Consult Physician Routine Consulting Provider: Shukri Cisneros Consult Reason/Comments: elevated troponins Do you want consulting provider notified?: Yes Primary care physician: Nandini Ruiz [facility] Course: Matt Enciso NP rendered care for this patient independently, reviewed the findings and plan as documented in the note above. I did not physically speak with or examine the patient on this date. Patient needed to leave for family before I had a chance to re-evaluate him.
== END 2021-03-03 10:44 | disposition home health service (06) | DRG 813 ==
LOC: EC 09:53 → 3SCARD 12:01
PROVIDERS: ADMIT Internal Medicine; ATTEND Internal Medicine
DX: D68.32 Hemorrhagic disorder due to extrinsic circulating anticoagulants (principal); I13.0 Hypertensive heart and chronic kidney disease with heart failure and stage 1 through stage 4 chronic kidney disease, or unspecified chronic kidney disease; I50.22 Chronic systolic (congestive) heart failure; N17.9 Acute kidney failure, unspecified; C77.0 Secondary and unspecified malignant neoplasm of lymph nodes of head, face and neck; C77.9 Secondary and unspecified malignant neoplasm of lymph node, unspecified; C34.90 Malignant neoplasm of unspecified part of unspecified bronchus or lung; I48.92 Unspecified atrial flutter; D68.9 Coagulation defect, unspecified; I48.0 Paroxysmal atrial fibrillation; Z95.5 Presence of coronary angioplasty implant and graft; Z95.1 Presence of aortocoronary bypass graft; Z92.3 Personal history of irradiation; Z92.21 Personal history of antineoplastic chemotherapy; Z87.891 Personal history of nicotine dependence; Z85.828 Personal history of other malignant neoplasm of skin; Z85.46 Personal history of malignant neoplasm of prostate; Z85.118 Personal history of other malignant neoplasm of bronchus and lung; Z81.1 Family history of alcohol abuse and dependence; Z79.899 Other long term (current) drug therapy; Z79.890 Hormone replacement therapy; Z79.01 Long term (current) use of anticoagulants; E03.9 Hypothyroidism, unspecified; E56.1 Deficiency of vitamin K; E78.5 Hyperlipidemia, unspecified; H91.90 Unspecified hearing loss, unspecified ear; I25.2 Old myocardial infarction; R62.7 Adult failure to thrive; Z66 Do not resuscitate; Z51.5 Encounter for palliative care; I44.7 Left bundle-branch block, unspecified; I25.10 Atherosclerotic heart disease of native coronary artery without angina pectoris; K29.70 Gastritis, unspecified, without bleeding; K59.00 Constipation, unspecified; N18.30 Chronic kidney disease, stage 3 unspecified; K21.9 Gastro-esophageal reflux disease without esophagitis
CPT/HCPCS: 36415; 71045; 74018; 74230; 80048; 80053; 83605; 83735; 84484; 85025; 85027; 85610; 85730; 87040; 93005; 96361; 96374; 99285